=== PATIENT | female | born 1940 | race Caucasian/White ===

== ENCOUNTER 2020-01-04 10:18 | Outpatient (REF) | payer MEDICARE, SELFPAY ==
[2020-01-04 11:15] LABS: Estimated Average Glucose 117 mg/dL; Hemoglobin A1C 119.9909 umol/L; Hemoglobin A1c % 5.7 %
[2020-01-04 11:24] LABS: Basophils Percent Auto 0.2 % (0-2); Eosinophils Percent Auto 0.5 % (0-4); Hematocrit 38.9 % (37-47); Imm Gran Abs Auto 0.08 X10*3/uL (0.00-0.03); Lymphocytes Absolute Auto 2.2 X10*3/uL (1.2-4.9); Lymphocytes Percent Auto 26.5 % (20-40); Mean Corpuscular HGB Conc 30.8 g/dl (31.0-35.0); Mean Platelet Volume 9.8 fL (9.4-12.3); Monocytes Absolute Auto 0.7 X10*3/uL (0.1-1.2); Neutrophils Absolute Auto 5.2 X10*3/uL (2.0-8.3); Neutrophils Percent Auto 62.8 % (45-73); Platelet Count 503 X10*3/uL (160-400); Red Cell Distribution Width 14.5 % (11.0-16.0); White Blood Count 8.3 X10*3/uL (4.8-10.8)
[2020-01-04 11:25] LABS: MANUAL DIFF FLAG NO
[2020-01-04 12:06] LABS: Anion Gap 14 (12-20); Blood Urea Nitrogen 14 mg/dL (9-16); Calcium 9.1 mg/dL (8.4-10.2); Carbon Dioxide 26 mmol/L (22-29); Chloride 103 mmol/L (96-108); Estimated Glomerular Filt Rate 49; Glucose Random 113 mg/dL (60-115); Potassium 5.4 mmol/l (3.3-5.1); Sodium 138 mmol/L (135-145)
[2020-01-04 14:31] LABS: Glucose Urine UA NEG (NEG); Leukocyte Esterase Urine 1+ (NEG); Nitrite Urine NEG (NEG); PH 5.5 (5.0-8.0); Specific Gravity - Urine 1.025 (1.005-1.025); Urine Blood NEG (NEG); Urine Ketones 5 MG/DL (NEG); Urine Protein TRACE MG/DL (NEG-TRACE)
[2020-01-04 14:34] LABS: Appearance Urine CLOUDY; Color Urine YELLOW
[2020-01-04 14:53] LABS: Amorphous Sediment Urine 1+ /LPF; Bacteria Urine 4+ /LPF; RBC Urine 0 /HPF (0); Squamous Epithelial Cell Urine 2+ /LPF
[2020-01-05 09:16] LABS: LDL Cholesterol Direct 74 mg/dL (<100)
== END 2020-01-04 10:19 | disposition home or self-care (01) ==
LOC: HO.HMGCLDS 10:18
PROVIDERS: PCP Internal Medicine; Visit Provider Internal Medicine
DX: K21.9 Gastro-esophageal reflux disease without esophagitis (principal); E78.9 Disorder of lipoprotein metabolism, unspecified; J44.9 Chronic obstructive pulmonary disease, unspecified; I10 Essential (primary) hypertension; R35.8 Other polyuria
CPT/HCPCS: 36415; 80048; 81001; 83036; 83721; 85025; 87086

== ENCOUNTER 2020-05-12 11:42 | Outpatient (REF) | payer MEDICARE, SELFPAY ==
[2020-05-12 14:05] LABS: MANUAL DIFF FLAG NO
[2020-05-12 14:16] LABS: Glucose Urine UA NEG (NEG); Leukocyte Esterase Urine NEG (NEG); Nitrite Urine NEG (NEG); PH 5.5 (5.0-8.0); Specific Gravity - Urine 1.025 (1.005-1.025); Urine Blood NEG (NEG); Urine Ketones NEG (NEG); Urine Protein NEG (NEG-TRACE)
[2020-05-12 14:17] LABS: Appearance Urine TURBID; Color Urine YELLOW
[2020-05-12 14:18] LABS: Basophils Absolute Auto 0.1 X10*3/uL (0.0-0.2); Basophils Percent Auto 0.6 % (0-2); Eosinophils Absolute Auto 0.2 X10*3/uL (0.0-0.4); Hematocrit 39.1 % (37-47); Hemoglobin 11.9 g/dl (12.0-16.0); Imm Gran Abs Auto 0.04 X10*3/uL (0.00-0.03); Imm Gran Pct Auto 0.4 % (0.0-0.4); Lymphocytes Absolute Auto 3.1 X10*3/uL (1.2-4.9); Lymphocytes Percent Auto 33.3 % (20-40); Mean Corpuscular HGB Conc 30.4 g/dl (31.0-35.0); Mean Corpuscular Hemoglobin 24.5 pg (27.0-33.0); Mean Corpuscular Volume 80.6 fL (80-98); Mean Platelet Volume 10.5 fL (9.4-12.3); Monocytes Absolute Auto 0.9 X10*3/uL (0.1-1.2); Monocytes Percent Auto 9.3 % (2-11); Neutrophils Absolute Auto 5.1 X10*3/uL (2.0-8.3); Neutrophils Percent Auto 54.4 % (45-73); Platelet Count 480 X10*3/uL (160-400); Red Blood Count 4.85 X10*6/uL (4.20-5.50); Red Cell Distribution Width 16.1 % (11.0-16.0); White Blood Count 9.4 X10*3/uL (4.8-10.8)
[2020-05-12 14:41] LABS: Alanine Aminotransferase 15 U/L (0-31); Albumin Level 4.4 g/dL (3.5-5.0); Alkaline Phosphatase 249 U/L (39-117); Anion Gap 19 (12-20); Aspartate Amino Transferase 21 U/L (5-31); Bilirubin Total 0.3 mg/dL (0.0-1.0); Blood Urea Nitrogen 15 mg/dL (9-16); Calcium 9.3 mg/dL (8.4-10.2); Carbon Dioxide 22 mmol/L (22-29); Chloride 103 mmol/L (96-108); Estimated Glomerular Filt Rate 47; Glucose Random 123 mg/dL (60-115); Potassium 4.5 mmol/L (3.3-5.1); Sodium 139 mmol/L (135-145); Total Protein 7.9 g/dL (6.5-8.0)
== END 2020-05-12 11:43 | disposition home or self-care (01) ==
LOC: HO.HMGCLDS 11:42
PROVIDERS: PCP Internal Medicine; Visit Provider Internal Medicine
DX: K21.9 Gastro-esophageal reflux disease without esophagitis (principal); E78.9 Disorder of lipoprotein metabolism, unspecified; J44.9 Chronic obstructive pulmonary disease, unspecified; I10 Essential (primary) hypertension; R35.8 Other polyuria
CPT/HCPCS: 36415; 80053; 81003; 85025

== ENCOUNTER → 2020-06-06 09:47 | Outpatient (BNVA) | payer MEDICARE, SELFPAY | PROVIDERS: PCP Internal Medicine; Visit Provider Internal Medicine | DX: J44.9 Chronic obstructive pulmonary disease, unspecified (principal); Z87.891 Personal history of nicotine dependence | CPT/HCPCS: 99202 ==

== ENCOUNTER → 2020-08-30 09:03 | Outpatient (BNVA) | payer MEDICARE, SELFPAY | PROVIDERS: PCP Internal Medicine; Visit Provider Internal Medicine | DX: J44.9 Chronic obstructive pulmonary disease, unspecified (principal); Z87.891 Personal history of nicotine dependence | CPT/HCPCS: 99212 ==

== ENCOUNTER → 2020-10-31 09:12 | Outpatient (BNVA) | payer MEDICARE, SELFPAY | PROVIDERS: PCP Internal Medicine | DX: N32.81 Overactive bladder (principal) | CPT/HCPCS: 51798; 99202 ==

== ENCOUNTER 2020-11-16 07:39 | Outpatient (REF) | payer MEDICARE, SELFPAY ==
[2020-11-16 11:26] LABS: MANUAL DIFF FLAG NO
[2020-11-16 11:36] LABS: Basophils Absolute Auto 0.1 X10*3/uL (0.0-0.2); Basophils Percent Auto 0.6 % (0-2); Eosinophils Absolute Auto 0.2 X10*3/uL (0.0-0.4); Eosinophils Percent Auto 1.5 % (0-4); Hematocrit 36.2 % (37-47); Hemoglobin 11.1 g/dl (12.0-16.0); Imm Gran Abs Auto 0.05 X10*3/uL (0.00-0.03); Imm Gran Pct Auto 0.5 % (0.0-0.4); Lymphocytes Absolute Auto 3.2 X10*3/uL (1.2-4.9); Lymphocytes Percent Auto 31.9 % (20-40); Mean Corpuscular HGB Conc 30.7 g/dl (31.0-35.0); Mean Corpuscular Hemoglobin 24.3 pg (27.0-33.0); Mean Corpuscular Volume 79.4 fL (80-98); Mean Platelet Volume 10.2 fL (9.4-12.3); Monocytes Absolute Auto 0.8 X10*3/uL (0.1-1.2); Monocytes Percent Auto 7.4 % (2-11); Neutrophils Absolute Auto 5.9 X10*3/uL (2.0-8.3); Neutrophils Percent Auto 58.1 % (45-73); Platelet Count 484 X10*3/uL (160-400); Red Blood Count 4.56 X10*6/uL (4.20-5.50); Red Cell Distribution Width 17.2 % (11.0-16.0); White Blood Count 10.1 X10*3/uL (4.8-10.8)
[2020-11-16 11:51] LABS: Alanine Aminotransferase 11 U/L (0-31); Albumin Level 3.9 g/dL (3.5-5.0); Alkaline Phosphatase 219 U/L (39-117); Anion Gap 15 (12-20); Aspartate Amino Transferase 19 U/L (5-31); Bilirubin Total 0.2 mg/dL (0.0-1.0); Blood Urea Nitrogen 11 mg/dL (9-16); Carbon Dioxide 22 mmol/L (22-29); Chloride 104 mmol/L (96-108); Estimated Glomerular Filt Rate 51; Glucose Random 122 mg/dL (60-115); Potassium 4.2 mmol/L (3.3-5.1); Sodium 137 mmol/L (135-145); Total Protein 6.9 g/dL (6.5-8.0)
[2020-11-18 02:16] LABS: LDL Cholesterol Direct 89 mg/dL (<100)
== END 2020-11-16 07:40 | disposition home or self-care (01) ==
LOC: HO.HMGCLDS 07:39
PROVIDERS: PCP Internal Medicine; Visit Provider Internal Medicine
DX: E78.9 Disorder of lipoprotein metabolism, unspecified (principal); I10 Essential (primary) hypertension
CPT/HCPCS: 36415; 80053; 83721; 85025

== ENCOUNTER 2020-12-11 14:33 | Emergency (ER) | payer MEDICARE, SELFPAY ==
--- NOTE | ~2020-12-11 | CT_ITS ---
EXAMINATION: CT ANGIOGRAM OF THE CHEST WITH AND WITHOUT CONTRAST (CT PULMONARY ANGIOGRAM FOR PE) CLINICAL INFORMATION: Elevated d-dimer and syncope. COMPARISON: No similar priors. TECHNIQUE: Prior to contrast administration, noncontrast localization images were obtained. Subsequently, multidetector volumetric imaging was performed from the thoracic inlet to below the diaphragms following the administration of 68 mL Omnipaque 350 intravenous contrast. No contrast reaction reported Sagittal, coronal, and MIP oblique sagittal reformatted images were obtained on the CT workstation, uploaded to PACS, and reviewed. This CT examination was performed using dose optimization techniques as appropriate, variously including the following: *Automated exposure control *Adjustment of mA and/or kV according to patient size (this includes techniques or standardized protocols for targeted exams where dose is matched to indication/reason for exam; i.e. extremities or head) *Use of iterative reconstruction technique Total exam dose-length product 255 mGy-cm FINDINGS: QUALITY OF STUDY/CONTRAST BOLUS: Satisfactory. PULMONARY ARTERIES: No central or segmental pulmonary emboli. THORACIC AORTA: Atherosclerotic disease. No aneurysm or dissection. LUNG: There is a background of centrilobular emphysema. There is right greater than left apical pleural thickening/scarring. There are platelike opacities in the right middle lobe, lingula and dependently in the lung bases, likely a combination of subsegmental atelectases and parenchymal scarring. There is mild bronchial wall thickening with some areas of segmental and subsegmental mucus impaction, for instance as visualized in the left upper lobe on image 190 of series 7. The main airways are patent. There are several nodularities bilaterally, some of which are described below (series 7): A 1.2 cm groundglass nodularity in the right lung base on image 340. A 6 mm solid appearing nodule in the right middle lobe on image 201. A 3 mm solid appearing nodule more superiorly in the right middle lobe on image 186. A 2 mm nodule in the right upper lobe on image 123. A few other more peripherally located nodularities appear to have a tree-in-bud morphology, for instance is identified in the anterior aspect of the right upper lobe on image 133 of series 7. PLEURA: No pleural effusion or pneumothorax. MEDIASTINUM: Normal heart size. Trace amount of pericardial fluid. No evidence of septal bowing or right heart strain. No mediastinal or hilar lymphadenopathy. The esophagus is filled with air-fluid levels and is slightly patulous. There is a normal appearance of the thyroid gland. CHEST WALL/AXILLA: No axillary or internal mammary lymphadenopathy. OSSEOUS STRUCTURES: No acute or suspicious osseous abnormality. Thoracic spondylosis. UPPER ABDOMEN: Unremarkable. No reflux of contrast into the hepatic veins to suggest elevated right heart pressures. CT/CT angio chest PE protocol IMPRESSION: No evidence of pulmonary emboli nor increased right-sided heart pressures. Centrilobular emphysema with multiple pulmonary nodules as above. This could be infectious, inflammatory or malignant and a short-term follow-up chest CT should be obtained. Of note, some of these nodules appear to be centrilobular and with tree-in-bud distribution which favors an infectious/inflammatory process. There is mild bronchial wall thickening and segmental/subsegmental mucus impaction which could be seen in the setting of infectious/inflammatory bronchitis. The esophagus is dilated with air-fluid levels possibly related with dysmotility or reflux. Correlate clinically and if indicated consider evaluation with endoscopy. VTE: negative
--- NOTE | ~2020-12-11 | XR_ITS ---
EXAMINATION: XR CHEST CLINICAL INFORMATION: Syncope COMPARISON: None TECHNIQUE: Frontal view of the chest was obtained. FINDINGS: Lungs are clear and there is no lobar or segmental airspace consolidation or groundglass opacity. The costophrenic sulci are clear. There is borderline smooth thickening of the medial right minor fissure of doubtful significance. The heart is normal in size. The hilar and mediastinal contours and visualized bony structures are unremarkable. XR/XR chest 1V IMPRESSION: Unremarkable examination.
--- NOTE | 2020-12-11 14:48 | ECG_ITS ---
Test Reason : DYSPNEA/DIZZYNESS Blood Pressure : / mmHG Vent. Rate : 075 BPM Atrial Rate : 075 BPM P-R Int : 144 ms QRS Dur : 116 ms QT Int : 402 ms P-R-T Axes : 050 049 054 degrees QTc Int : 448 ms Normal sinus rhythm Incomplete right bundle branch block Nonspecific ST and T wave abnormality Abnormal ECG No significant changes seen \ Referred By: Tenisha Alvarez Electronically Signed By:IVA SHARP MD
--- NOTE | 2020-12-11 14:50 | ED.SYNCOPE ---
HPI - Syncope General Chief Complaint: Syncope Stated Complaint: syncope Time Seen by Provider: 12/11/20 14:48 Source: patient and EMS Mode of arrival: EMS Limitations: no limitations History of Present Illness MD complaint: loss of consciousness Onset (ago): minute(s) -: minutes(s) Prodromal symptoms: lightheaded Witnessed: Yes - by Bystander Context: standing up (to leave the pub) Injuries sustained associated with event: none (was lowered to the ground) Current symptoms: none and back to baseline Treatments prior to arrival: IV fluids Related Data Previous Rx's Medication Instructions Recorded albuterol sulfate 90 mcg/actuation 1 inh INHALATION QID PRN 30 Days 05/12/20 aerosol inhaler (ProAir HFA) #18 g amlodipine 10 mg tablet 10 mg PO DAILY #90 tab 09/15/20 fluticasone fur. 200 mcg-umeclid 1 inh INHALATION Q24H 30 Days #60 09/15/20 62.5 mcg-vilant 25 mcg ea inhalat.powder (Trelegy Ellipta) losartan 50 mg tablet 50 mg PO DAILY #90 tab 09/15/20 omeprazole 40 mg capsule,delayed 40 mg PO DAILY #90 cap 09/15/20 release simvastatin 40 mg tablet 40 mg PO DAILY 90 Days #90 tab 09/15/20 mirabegron 25 mg tablet,extended 25 mg PO DAILY 30 Days #30 tab 10/31/20 release 24 hr (Myrbetriq) terazosin 1 mg capsule 1 mg PO BEDTIME #30 cap 11/23/20 azithromycin 500 mg tablet See Rx Instructions .ROUTE 12/11/20 .COMPLEX #6 tab Allergies Allergy/AdvReac Type Severity Reaction Status Date / Time No Known Allergies Allergy Verified 10/31/20 09:31 Review of Systems Review of Systems: Constitutional : No Weight loss, No Fever, No Chills, No Fatigue, No Malaise ENT/Mouth : No sore throat, No Rhinorrhea Eyes: No Eye Pain, No Swelling, No Redness Cardiovascular : No Chest Pain, No SOB, No Dyspnea on Exertion, No Orthopnea, No Edema, No Palpitations Respiratory : No Cough, No Sputum, No Wheezing Gastrointestinal : No Nausea, No Vomiting, No Diarrhea, No Constipation, No abdominal Pain, No Hematochezia, No Melena Genitourinary : No Dysuria, No Urinary Frequency, No Hematuria, Musculoskeletal : No joint pain, No Myalgias, No Joint Swelling Skin : No Skin Lesions, No rash Neuro : No Weakness, No Numbness, No Dizziness, No Headache, pos syncope Psych : No Anxiety/Panic, No Depression Heme/Lymph: No Bruising, No Bleeding,No Lymphadenopathy Endocrine : No Polyuria, No Polydipsia All other systems reviewed and are negative PMFSH Past Medical History Attestation statement: The following information was validated with the patient. Medical History Chronic GERD COPD, severe Ex-smoker Hypertension Lipid disorder Polyuria Surgical History No pertinent past surgical history Family History Family History Father HTN (hypertension) Mother No problems noted. Brother No problems noted. Son No problems noted. Son No problems noted. Daughter No problems noted. Daughter No problems noted. Social History Social History (Updated 12/11/20 @ 14:53 by Tenisha Alvarez DO) Alcohol intake: current Alcohol intake frequency: a few times a week Patient Tobacco Use Status: Former Tobacco user Smoked in Last 30 Days: No Use of substances other than those prescribed or required for medical reasons: No Advance Directives: No Advance Directives Information Provided: No Physical Exam Vital Signs: Vital Signs: Last Vital Signs Temp 98.3 F 12/11/20 14:52 Pulse 96 12/11/20 19:11 Resp 16 12/11/20 20:13 BP 115/52 L 12/11/20 19:11 Pulse Ox 93 12/11/20 19:09 Body Mass Index 30.7 Appearance: Alert. Oriented X3. No acute distress. Eyes: Pupils equal, round and reactive to light. ENT: Pharynx normal. Neck: Normal inspection. Neck supple. CVS: Normal heart rate and rhythm. Pulses normal. Respiratory: No respiratory distress. Breath sounds normal. Abdomen: Soft and nontender. Skin: Skin warm and dry. Normal skin color. Normal skin turgor. Extremities: No lower extremity edema. No calf ttp Neuro: Oriented X 3. No motor deficit. No sensory deficit. Course Course Course Narrative: neg PE study, + ortho VS and ETOH likely cause of syncope repeat trop pending feels better after fluids stable for DC MDM - Syncope MDM Narrative Medical decision making narrative: 80 yo female with COPD, HLD, HTN here with c/o syncopal event with dizziness prodrome when she went to leave the pub. Denies SOB/CP/GIB symptoms. Had no trauma was lowered to the ground. At this time will obtain EKG, troponin x 2, ddimer, ortho VS - has no symptoms and feels fine. No prior episodes of syncope in the past. Lab Data Result diagrams: 12/11/20 15:51 12/11/20 15:51 Labs: Lab Results 12/11/20 12/11/20 12/11/20 Range/Units 15:51 15:51 15:51 WBC 10.4 (4.8-10.8) X10*3/uL RBC 4.47 (4.20-5.50) X10*6/uL Hgb 11.0 L (12.0-16.0) g/dl Hct 35.8 L (37-47) % MCV 80.1 (80-98) fL MCH 24.6 L (27.0-33.0) pg MCHC 30.7 L (31.0-35.0) g/dl RDW 16.4 H (11.0-16.0) % Plt Count 418 H (160-400) X10*3/uL MPV 9.5 (9.4-12.3) fL Immature Gran % (Auto) 1.3 H (0.0-0.4) % Neut % (Auto) 64.6 (45-73) % Lymph % (Auto) 24.9 (20-40) % Hopkins % (Auto) 7.3 (2-11) % Eos % (Auto) 1.2 (0-4) % Baso % (Auto) 0.7 (0-2) % Lymph # (Auto) 2.6 (1.2-4.9) X10*3/uL Hopkins # (Auto) 0.8 (0.1-1.2) X10*3/uL Eos # (Auto) 0.1 (0.0-0.4) X10*3/uL Baso # (Auto) 0.1 (0.0-0.2) X10*3/uL Abs Immat Gran (auto) 0.14 H (0.00-0.03) X10*3/uL Absolute Neuts (auto) 6.7 (2.0-8.3) X10*3/uL Absolute Nucleated RBC 0.000 (0.0-0.012) X10*3/uL Nucleated RBC % (auto) 0.0 (0.0-0.2) /100WBC D-Dimer NG/ML Sodium 132 L (135-145) mmol/L Potassium 3.8 (3.3-5.1) mmol/L Chloride 102 (96-108) mmol/L Carbon Dioxide 20 L (22-29) mmol/L Anion Gap 14 (12-20) BUN 11 (9-16) mg/dL Creatinine 1.33 (0.5-1.4) mg/dL Estim Creat Clear Calc 36.6 Estimated GFR 38 Random Glucose 98 (60-115) mg/dL Calcium 8.8 (8.4-10.2) mg/dL Magnesium 1.9 (1.6-2.6) mg/dL Total Bilirubin 0.3 (0.0-1.0) mg/dL Direct Bilirubin < 0.2 (0.0-0.5) mg/dL AST 20 (5-31) U/L ALT 13 (0-31) U/L Alkaline Phosphatase 168 H D (39-117) U/L Troponin I High Sens (<3.5-17.0) ng/L B-Natriuretic Peptide 15 (<100) pg/mL Total Protein 6.6 (6.5-8.0) g/dL Albumin 3.8 (3.5-5.0) g/dL Lipase 21 (8-78) U/L Ethyl Alcohol mg/dL COVID-19 (DIPESH) (Negative) COVID-19 Clin Com 12/11/20 12/11/20 12/11/20 Range/Units 15:51 15:51 15:51 WBC (4.8-10.8) X10*3/uL RBC (4.20-5.50) X10*6/uL Hgb (12.0-16.0) g/dl Hct (37-47) % MCV (80-98) fL MCH (27.0-33.0) pg MCHC (31.0-35.0) g/dl RDW (11.0-16.0) % Plt Count (160-400) X10*3/uL MPV (9.4-12.3) fL Immature Gran % (Auto) (0.0-0.4) % Neut % (Auto) (45-73) % Lymph % (Auto) (20-40) % Hopkins % (Auto) (2-11) % Eos % (Auto) (0-4) % Baso % (Auto) (0-2) % Lymph # (Auto) (1.2-4.9) X10*3/uL Hopkins # (Auto) (0.1-1.2) X10*3/uL Eos # (Auto) (0.0-0.4) X10*3/uL Baso # (Auto) (0.0-0.2) X10*3/uL Abs Immat Gran (auto) (0.00-0.03) X10*3/uL Absolute Neuts (auto) (2.0-8.3) X10*3/uL Absolute Nucleated RBC (0.0-0.012) X10*3/uL Nucleated RBC % (auto) (0.0-0.2) /100WBC D-Dimer 585 NG/ML Sodium (135-145) mmol/L Potassium (3.3-5.1) mmol/L Chloride (96-108) mmol/L Carbon Dioxide (22-29) mmol/L Anion Gap (12-20) BUN (9-16) mg/dL Creatinine (0.5-1.4) mg/dL Estim Creat Clear Calc Estimated GFR Random Glucose (60-115) mg/dL Calcium (8.4-10.2) mg/dL Magnesium (1.6-2.6) mg/dL Total Bilirubin (0.0-1.0) mg/dL Direct Bilirubin (0.0-0.5) mg/dL AST (5-31) U/L ALT (0-31) U/L Alkaline Phosphatase (39-117) U/L Troponin I High Sens < 3.5 (<3.5-17.0) ng/L B-Natriuretic Peptide (<100) pg/mL Total Protein (6.5-8.0) g/dL Albumin (3.5-5.0) g/dL Lipase (8-78) U/L Ethyl Alcohol 95 mg/dL COVID-19 (DIPESH) (Negative) COVID-19 Clin Com 12/11/20 12/11/20 Range/Units 18:28 18:28 WBC (4.8-10.8) X10*3/uL RBC (4.20-5.50) X10*6/uL Hgb (12.0-16.0) g/dl Hct (37-47) % MCV (80-98) fL MCH (27.0-33.0) pg MCHC (31.0-35.0) g/dl RDW (11.0-16.0) % Plt Count (160-400) X10*3/uL MPV (9.4-12.3) fL Immature Gran % (Auto) (0.0-0.4) % Neut % (Auto) (45-73) % Lymph % (Auto) (20-40) % Hopkins % (Auto) (2-11) % Eos % (Auto) (0-4) % Baso % (Auto) (0-2) % Lymph # (Auto) (1.2-4.9) X10*3/uL Hopkins # (Auto) (0.1-1.2) X10*3/uL Eos # (Auto) (0.0-0.4) X10*3/uL Baso # (Auto) (0.0-0.2) X10*3/uL Abs Immat Gran (auto) (0.00-0.03) X10*3/uL Absolute Neuts (auto) (2.0-8.3) X10*3/uL Absolute Nucleated RBC (0.0-0.012) X10*3/uL Nucleated RBC % (auto) (0.0-0.2) /100WBC D-Dimer NG/ML Sodium (135-145) mmol/L Potassium (3.3-5.1) mmol/L Chloride (96-108) mmol/L Carbon Dioxide (22-29) mmol/L Anion Gap (12-20) BUN (9-16) mg/dL Creatinine (0.5-1.4) mg/dL Estim Creat Clear Calc Estimated GFR Random Glucose (60-115) mg/dL Calcium (8.4-10.2) mg/dL Magnesium (1.6-2.6) mg/dL Total Bilirubin (0.0-1.0) mg/dL Direct Bilirubin (0.0-0.5) mg/dL AST (5-31) U/L ALT (0-31) U/L Alkaline Phosphatase (39-117) U/L Troponin I High Sens < 3.5 (<3.5-17.0) ng/L B-Natriuretic Peptide (<100) pg/mL Total Protein (6.5-8.0) g/dL Albumin (3.5-5.0) g/dL Lipase (8-78) U/L Ethyl Alcohol mg/dL COVID-19 (DIPESH) Negative (Negative) COVID-19 Clin Com See Note ECG Data Attestation: I personally reviewed and interpreted this ECG as follows: ECG interpretation date: 12/11/20 ECG interpretation time: 15:13 Interpretation: Rate: 75 Rhythm: NSR [place]: normal Normal P waves. Normal LILLIAN. RBBB ST T wave : normal no BYRON qTC: normal prior studies: no sig change from 2015 The study has been interpreted contemporaneously by me. . Discharge Plan Discharge Clinical Impression: Syncope due to orthostatic hypotension, Bronchitis Patient Disposition: Home, Self-Care Instructions: Syncope (ED), Acute Bronchitis (ED) Additional Instructions: return to ED for any worsening symptoms or concerns no blood pressure medications for 2 days patient instructed prior to DC Prescriptions: New azithromycin 500 mg tablet See Rx Instructions .ROUTE .COMPLEX Qty: 6 RF: 0 No Action Trelegy Ellipta 200-62.5-25 mcg blister with device 1 inh inhalation Q24H 30 Days Qty: 60 RF: 6 terazosin 1 mg capsule 1 mg PO BEDTIME Qty: 30 RF: 5 albuterol sulfate [ProAir HFA] 90 mcg/actuation HFA aerosol inhaler 1 inh inhalation QID PRN (Reason: shortness of breath or wheezing) 30 Days Qty: 18 RF: 3 simvastatin 40 mg tablet 40 mg PO DAILY 90 Days Qty: 90 RF: 0 omeprazole 40 mg capsule,delayed release(DR/EC) 40 mg PO DAILY Qty: 90 RF: 2 losartan 50 mg tablet 50 mg PO DAILY Qty: 90 RF: 1 amlodipine 10 mg tablet 10 mg PO DAILY Qty: 90 RF: 1 Myrbetriq 25 mg tablet extended release 24 hr 25 mg PO DAILY 30 Days Qty: 30 RF: 1 Referrals: Flavio Bundy MD [Primary Care Provider] - 2 days (if not better)
[2020-12-11 14:52] VITALS: BP 102/60; BP 106/52; PULSE 78; PULSE 80; RESP 20; TEMP 36.8; O2SAT 97; O2SAT 98; BMI 30.7
[2020-12-11 15:58] LABS: MANUAL DIFF FLAG NO
[2020-12-11 16:02] LABS: Basophils Absolute Auto 0.1 X10*3/uL (0.0-0.2); Basophils Percent Auto 0.7 % (0-2); Eosinophils Absolute Auto 0.1 X10*3/uL (0.0-0.4); Eosinophils Percent Auto 1.2 % (0-4); Hematocrit 35.8 % (37-47); Imm Gran Abs Auto 0.14 X10*3/uL (0.00-0.03); Imm Gran Pct Auto 1.3 % (0.0-0.4); Lymphocytes Absolute Auto 2.6 X10*3/uL (1.2-4.9); Lymphocytes Percent Auto 24.9 % (20-40); Mean Corpuscular HGB Conc 30.7 g/dl (31.0-35.0); Mean Corpuscular Hemoglobin 24.6 pg (27.0-33.0); Mean Corpuscular Volume 80.1 fL (80-98); Mean Platelet Volume 9.5 fL (9.4-12.3); Monocytes Absolute Auto 0.8 X10*3/uL (0.1-1.2); Monocytes Percent Auto 7.3 % (2-11); Neutrophils Absolute Auto 6.7 X10*3/uL (2.0-8.3); Neutrophils Percent Auto 64.6 % (45-73); Platelet Count 418 X10*3/uL (160-400); Red Blood Count 4.47 X10*6/uL (4.20-5.50); Red Cell Distribution Width 16.4 % (11.0-16.0); White Blood Count 10.4 X10*3/uL (4.8-10.8)
[2020-12-11 16:11] LABS: D Dimer 585 NG/ML
[2020-12-11 16:18] LABS: Ethanol 95 mg/dL
[2020-12-11 16:21] LABS: Alanine Aminotransferase 13 U/L (0-31); Albumin Level 3.8 g/dL (3.5-5.0); Alkaline Phosphatase 168 U/L (39-117); Anion Gap 14 (12-20); Aspartate Amino Transferase 20 U/L (5-31); Bilirubin Direct < 0.2 mg/dL (0.0-0.5); Bilirubin Total 0.3 mg/dL (0.0-1.0); Blood Urea Nitrogen 11 mg/dL (9-16); Calcium 8.8 mg/dL (8.4-10.2); Carbon Dioxide 20 mmol/L (22-29); Chloride 102 mmol/L (96-108); Creatinine Clr Calc Pharmacy 36.6; Estimated Glomerular Filt Rate 38; Glucose Random 98 mg/dL (60-115); Lipase 21 U/L (8-78); Magnesium 1.9 mg/dL (1.6-2.6); Potassium 3.8 mmol/L (3.3-5.1); Sodium 132 mmol/L (135-145); Total Protein 6.6 g/dL (6.5-8.0)
[2020-12-11 16:22] LABS: Troponin-I High Sensitivity < 3.5 ng/L (<3.5-17.0)
[2020-12-11 16:25] LABS: B Type Natriuretic Peptide 15 pg/mL (<100)
[2020-12-11] MEDS: iohexoL 350 MG/ML 100 ML INFUS..BTL IV (17:08)
[2020-12-11] MEDS: 0.9 % Sodium Chloride 1,000 ML 999 ML IV ×2 (17:54→19:08)
[2020-12-11 18:03] VITALS: BP 107/53; BP 110/66; BP 97/50; PULSE 114; PULSE 119; PULSE 93
[2020-12-11 18:50] LABS: COVID-19 Test Negative (Negative)
[2020-12-11 18:53] LABS: Troponin-I High Sensitivity < 3.5 ng/L (<3.5-17.0)
[2020-12-11 19:09] VITALS: O2SAT 93
[2020-12-11 19:11] VITALS: BP 115/52; PULSE 96; RESP 16
--- NOTE | 2020-12-11 19:12 | PC.NURSE ---
vital signs taken, medicated per mar. no chest pain or increase of sob. Disposition is to discharge patient after fluids completed.
[2020-12-11 20:13] VITALS: RESP 16
== END 2020-12-11 20:25 | disposition home or self-care (01) ==
PROVIDERS: Emergency Provider Emergency Medicine; PCP Internal Medicine
DX: I95.1 Orthostatic hypotension (principal); J40 Bronchitis, not specified as acute or chronic; I10 Essential (primary) hypertension; J44.9 Chronic obstructive pulmonary disease, unspecified; Z20.822 Contact with and (suspected) exposure to COVID-19
CPT/HCPCS: 36415; 71045; 71275; 80048; 80076; 82077; 83690; 83735; 83880; 84484; 85025; 85379; 87635; 93005; 96360; 96361; 99285; Q9967

== ENCOUNTER 2020-12-15 13:14 | Outpatient (REF) | payer MEDICARE, SELFPAY ==
--- NOTE | ~2020-12-15 | XR_ITS ---
EXAMINATION: XR RIBS, RIGHT CLINICAL INFORMATION: Pleurodynia COMPARISON: Previous chest x-ray 12/11/2020 TECHNIQUE: 3 views of the right ribs were obtained. FINDINGS: The cardiac and mediastinal contours are stable. There is linear scarring or subsegmental atelectasis in the right midlung. The lungs are otherwise clear. There is no pleural effusion or pneumothorax. No rib fracture is seen. There are mild degenerative changes of the spine. XR/XR ribs RT min 3V w CXR1V IMPRESSION: Right midlung linear scarring or subsegmental atelectasis. No rib fracture seen.
== END 2020-12-15 13:15 | disposition home or self-care (01) ==
LOC: HO.HMGCX 13:14
PROVIDERS: PCP Internal Medicine; Visit Provider Internal Medicine
DX: R07.81 Pleurodynia (principal)
CPT/HCPCS: 71101

== ENCOUNTER → 2021-01-03 09:00 | Outpatient (BNVA) | payer MEDICARE, SELFPAY | PROVIDERS: PCP Internal Medicine; Visit Provider Internal Medicine | DX: J44.9 Chronic obstructive pulmonary disease, unspecified (principal); Z87.891 Personal history of nicotine dependence | CPT/HCPCS: 99212 ==

== ENCOUNTER → 2021-03-07 09:03 | Outpatient (BNVA) | payer MEDICARE, SELFPAY | PROVIDERS: PCP Internal Medicine; Visit Provider Internal Medicine | DX: J44.9 Chronic obstructive pulmonary disease, unspecified (principal); Z79.899 Other long term (current) drug therapy; Z87.891 Personal history of nicotine dependence | CPT/HCPCS: 99212 ==

== ENCOUNTER 2021-04-11 07:33 | Outpatient (REF) | payer MEDICARE, SELFPAY ==
[2021-04-11 11:13] LABS: MANUAL DIFF FLAG NO
[2021-04-11 11:17] LABS: Basophils Absolute Auto 0.1 X10*3/uL (0.0-0.2); Basophils Percent Auto 0.7 % (0-2); Eosinophils Absolute Auto 0.4 X10*3/uL (0.0-0.4); Eosinophils Percent Auto 2.8 % (0-4); Hematocrit 37.2 % (37.0-47.0); Hemoglobin 11.1 g/dl (12.0-16.0); Imm Gran Abs Auto 0.05 X10*3/uL (0.00-0.03); Imm Gran Pct Auto 0.4 % (0.0-0.4); Lymphocytes Absolute Auto 4.7 X10*3/uL (1.2-4.9); Lymphocytes Percent Auto 36.9 % (20-40); Mean Corpuscular HGB Conc 29.8 g/dl (31.0-35.0); Mean Corpuscular Hemoglobin 23.3 pg (27.0-33.0); Mean Platelet Volume 10.8 fL (9.4-12.3); Monocytes Percent Auto 8.2 % (2-11); Neutrophils Absolute Auto 6.5 x10*3/uL (2.0-8.3); Platelet Count 510 X10*3/uL (160-400); Red Blood Count 4.77 X10*6/uL (4.20-5.50); Red Cell Distribution Width 15.5 % (11.0-16.0); White Blood Count 12.7 X10*3/uL (4.8-10.8)
[2021-04-11 11:53] LABS: Alanine Aminotransferase 9 U/L (0-31); Albumin Level 4.3 g/dL (3.5-5.0); Alkaline Phosphatase 148 U/L (39-117); Anion Gap 14 (12-20); Aspartate Amino Transferase 17 U/L (5-31); Bilirubin Total 0.4 mg/dL (0.0-1.0); Blood Urea Nitrogen 14 mg/dL (9-16); Calcium 10.1 mg/dL (8.4-10.2); Carbon Dioxide 26 mmol/L (22-29); Chloride 102 mmol/L (96-108); Estimated Glomerular Filt Rate 51; Glucose Random 105 mg/dL (60-115); Potassium 4.1 mmol/L (3.3-5.1); Sodium 138 mmol/L (135-145); Total Protein 7.3 g/dL (6.5-8.0)
[2021-04-11 11:56] LABS: Vitamin B12 232 pg/mL (200-900)
[2021-04-11 12:15] LABS: TSH reflex Free T4 1.04 uIU/mL (0.32-4.0)
[2021-04-12 09:01] LABS: LDL Cholesterol Direct 100 mg/dL (<100)
== END 2021-04-11 07:34 | disposition home or self-care (01) ==
LOC: HO.HMGCLDS 07:33
PROVIDERS: Visit Provider Internal Medicine
DX: I10 Essential (primary) hypertension (principal); J44.9 Chronic obstructive pulmonary disease, unspecified; K21.9 Gastro-esophageal reflux disease without esophagitis; N32.81 Overactive bladder; E78.9 Disorder of lipoprotein metabolism, unspecified
CPT/HCPCS: 36415; 80053; 82607; 83721; 84443; 85025

== ENCOUNTER → 2021-04-30 09:02 | Outpatient (BNVA) | payer MEDICARE, SELFPAY | PROVIDERS: PCP Internal Medicine | DX: N32.81 Overactive bladder (principal); R35.89 Other polyuria | CPT/HCPCS: Q3014 ==

== ENCOUNTER → 2021-07-05 09:10 | Outpatient (BNVA) | payer MEDICARE, SELFPAY | PROVIDERS: PCP Internal Medicine; Visit Provider Internal Medicine | DX: J44.9 Chronic obstructive pulmonary disease, unspecified (principal); R00.0 Tachycardia, unspecified; Z87.891 Personal history of nicotine dependence | CPT/HCPCS: 99212 ==

== ENCOUNTER → 2021-07-31 08:05 | Outpatient (BNVA) | payer MEDICARE, SELFPAY | PROVIDERS: PCP Internal Medicine | DX: N32.81 Overactive bladder (principal) | CPT/HCPCS: Q3014 ==

== ENCOUNTER → 2021-08-30 09:52 | Outpatient (BNVA) | payer MEDICARE, SELFPAY | PROVIDERS: PCP Internal Medicine | DX: R35.0 Frequency of micturition (principal); R35.89 Other polyuria | CPT/HCPCS: 51798; 99212 ==

== ENCOUNTER → 2021-09-10 09:17 | Outpatient (BNVA) | payer MEDICARE, SELFPAY | PROVIDERS: PCP Internal Medicine; Visit Provider Internal Medicine | DX: J44.9 Chronic obstructive pulmonary disease, unspecified (principal); Z87.891 Personal history of nicotine dependence | CPT/HCPCS: 99212 ==

== ENCOUNTER → 2021-09-13 10:46 | Outpatient (BNVA) | payer MEDICARE, SELFPAY | PROVIDERS: PCP Internal Medicine | DX: N32.81 Overactive bladder (principal) | CPT/HCPCS: Q3014 ==

== ENCOUNTER 2021-09-24 08:02 | Day surgery (SDC) | payer MEDICARE, SELFPAY ==
[2021-09-18 14:59] VITALS: BMI 28.3
--- NOTE | 2021-09-21 11:40 | HO.ANESPROP2 ---
Documented by User: Gracie Massey NP 09/21/21 11:43 HPI - Anesthesia Eval Consult details Narrative: 81yo F for Cystoscopy Botox Injection Pulmo cleared PMFSH Active Problems Active Problems: All Active Problems (Updated 09/18/21 @ 14:54 by Lisette Nair RN) Overactive bladder (Acute) Hospital discharge follow-up (Acute) Syncope (Acute) Rib pain on right side (Acute) Alcoholism (Acute) COPD, severe (Acute) Medicare annual wellness visit, subsequent (Acute) Tachycardia (Acute) Ex-smoker (Acute) Polyuria (Acute) Chronic GERD (Acute) Lipid disorder (Acute) COPD, severe (Acute) Hypertension (Acute) Past Medical History Medical History (Updated 09/18/21 @ 14:54 by Lisette Nair RN) Chronic GERD COPD, severe COVID-19 vaccination declined Ex-smoker Frequency of micturition Hypertension Influenza vaccination declined Lipid disorder Polyuria Tachycardia Family History Family History Father HTN (hypertension) Mother No problems noted. Brother No problems noted. Son No problems noted. Son No problems noted. Daughter No problems noted. Daughter No problems noted. Surgical History Surgical History (Updated 09/18/21 @ 14:53 by Lisette Nair RN) Hx of cataract extraction Social History Social History (Updated 09/18/21 @ 14:59 by Lisette Nair RN) Housing: House Alcohol intake: current Alcohol intake frequency: a few times a week Patient Tobacco Use Status: Former Tobacco user Quit Date: 2013 Tobacco use type: Cigarette Years Smoked: 60 years e-Cigarette/Vaping Use: Never Used Second Hand Smoke Exposure: No service: No Current occupational status: retired Cognitive needs: No Hearing needs: No Vision needs: Yes Meds Allergies Allergy/AdvReac Type Severity Reaction Status Date / Time No Known Allergies Allergy Verified 09/18/21 08:51 Home Medications Medication Instructions Recorded Confirmed Last Taken Type prednisone 5 mg tablet 5 mg PO Q OTHER DAY ASTHMA 07/05/21 09/18/21 Unknown History Exam Exam Date and Time: September 21, 2021 1140 Height,Weight and Vital Signs: Height 5 ft 4 in Weight 74.843 kg Pertinent Lab Results Pertinent Lab Results: Laboratory Tests 04/11/21 04/11/21 07:40 07:40 WBC 12.7 H Hgb 11.1 L Hct 37.2 Plt Count 510 H Sodium 138 Potassium 4.1 Chloride 102 Carbon Dioxide 26 BUN 14 Creatinine 1.04 Narrative Narrative: EKG 11/2020 Vent. Rate : 075 BPM ? ? Atrial Rate : 075 BPM ?? P-R Int : 144 ms? QRS Dur : 116 ms ? ? QT Int : 402 ms ? ? ? P-R-T Axes : 050 049 054 degrees ?? QTc Int : 448 ms ? Normal sinus rhythm Incomplete right bundle branch block Nonspecific ST and T wave abnormality Abnormal ECG No significant changes seen Assessment and Plan Assessment Anesthesia Assessment: Chart Reviewed Documented by User: Mati Valenzuela MD 09/24/21 17:20 [facility] Past Medical History Medical History (Updated 09/18/21 @ 14:54 by Lisette Nair RN) Chronic GERD COPD, severe COVID-19 vaccination declined Ex-smoker Frequency of micturition Hypertension Influenza vaccination declined Lipid disorder Polyuria Tachycardia Family History Family History Father HTN (hypertension) Mother No problems noted. Brother No problems noted. Son No problems noted. Son No problems noted. Daughter No problems noted. Daughter No problems noted. Family history of problems with anesthesia: No Surgical History Surgical History (Updated 09/18/21 @ 14:53 by Lisette Nair RN) Hx of cataract extraction History of Problems with Anesthesia: No Social History Social History (Updated 09/18/21 @ 14:59 by Lisette Nair RN) Housing: House Alcohol intake: current Alcohol intake frequency: a few times a week Patient Tobacco Use Status: Former Tobacco user Quit Date: 2013 Tobacco use type: Cigarette Years Smoked: 60 years e-Cigarette/Vaping Use: Never Used Second Hand Smoke Exposure: No service: No Current occupational status: retired Cognitive needs: No Hearing needs: No Vision needs: Yes Meds Allergies Allergy/AdvReac Type Severity Reaction Status Date / Time No Known Allergies Allergy Verified 09/18/21 08:51 Home Medications Medication Instructions Recorded Confirmed Last Taken Type prednisone 5 mg tablet 5 mg PO Q OTHER DAY ASTHMA 07/05/21 09/18/21 Unknown History Exam Airway Mallampati Class: III TM Dist: >3cm Neck ROM: Full Denture: Upper Loose/Missing/Broken Teeth: Yes Heart: S1,S2 Lungs: b/l breath sounds Assessment and Plan Assessment Anesthesia Assessment: Anesthesia Plan Discussed Final Anesthetic Review Family History of Problems with Anesthesia: No History of Problems with Anesthesia: No NPO: Yes ASA Class: III Final Preanesthetic Review: Meds/Allgs Chart Reviewed, Consent Obtained/Reviewed, Anes Risks/Benef Reviewed and DNR Form (If Appl.) Patient Risk: Intermediate Procedure Risk: Intermediate Anesthetic Plan Anesthetic Plan: GA Disposition: Standard PACU
[2021-09-24 08:16] VITALS: BMI 28.3
[2021-09-24 08:28] VITALS: BP 147/69; PULSE 104; RESP 16; TEMP 36.5; O2SAT 97
[2021-09-24 08:33] VITALS: PULSE 96
[2021-09-24] MEDS: Lactated Ringers 1,000 ML 100 ML IVCONT (08:41)
--- NOTE | 2021-09-24 10:30 | MHC.SHP ---
Pre-Procedural Eval Section A Date of Service: 09/24/21 The patient is an INPATIENT: No Changes since office visit: No Cold of Flu in the past 2 weeks, No New Medical Problems, No Changes in Medication and No Patient answered all questions The History & Physical has been completed within 30 days and I have reviewed it.: Yes Section B Chief Complaint: overactive bladder Details of Present Illness: Botox cystoscopy Allergies: Allergies Allergy/AdvReac Type Severity Reaction Status Date / Time No Known Allergies Allergy Verified 09/18/21 08:51 Review of Systems Sugical H&P ROS: Negative: Constitution, Cardiovascular, Respiratory, Neurological, Psychiatric, Hem-Onc, Allergic/Immunologic, Gastrointestinal, Genitourinary, Musculoskeletal, Integumentary, Endocrine and Eyes/Ears/Nose/Throat Exam Surgical H&P Exam: Normal: HEENT, Normal: Heart, Normal: Lungs, Normal: Extremities, Normal: Abdomen, Normal: Skin and Normal: Neurological Plan Diagnosis/Plan: Unchanged I have reviewed the history and physical and performed a pertinent physical examination on my patient. No changes have occurred unless specified.
--- NOTE | 2021-09-24 11:09 | P.OP_ITS ---
Operative Note Operative Note Date of Service: 09/24/21 Narrative: PreOperative Diagnosis: Overactive bladder with failure of medications Post Operative Diagnosis: Overactive bladder with failure of medications, stiff bladder Procedure: Cystoscopy with injection 100 units Botox intra detrusor muscle, hydrodistension Surgeon: Dr Efraín Stubbs Anesthesia: Sedation Indications for procedure: Is a very pleasant 81-year-old female. Has persistent urgency and frequency. Has failed oral medications. At office cystoscopy has effective emptying with minimal urethral rotation on cough. For cystoscopy and Botox injection. Is aware of the risks and benefits particularly related to urinary retention and possible infection. Procedure: After informed consent was verified the patient was brought to the operating room and placed in a supine position. Anesthesia was administered per protocol. Cystoscopy performed with 22 Bulgarian cystoscope. Bladder was emptied of urine. Bladder was refilled. Using 100 units of Botox mixed in 10 cc of normal saline injections were placed at the back wall of the bladder. 0.5cc placed at each injection site. Injections were placed in a grid 5 across and for high. Injections were placed from the inferior to superior position. Trabeculations on the bladder wall with targeted for each injection site. Hydrodistension performed with capacity of only 600cc Procedure was tolerated well. Patient was extubated and transferred in stable condition to the recovery area. Pathology: None Drains: None
[2021-09-24 11:17] VITALS: BP 99/49; PULSE 76; RESP 20; TEMP 36.2; O2SAT 99
[2021-09-24 11:22] VITALS: BP 88/47; PULSE 75; RESP 18; O2SAT 100
[2021-09-24 11:27] VITALS: BP 91/50; PULSE 88; RESP 18; O2SAT 100
[2021-09-24 11:32] VITALS: BP 112/56; PULSE 96; RESP 18; TEMP 36.1; O2SAT 98
[2021-09-24] MEDS: Phenazopyridine HCL 100 MG TABLET PO (11:32)
[2021-09-24] MEDS: Acetaminophen 325 MG TABLET 650 MG PO (11:33)
== END 2021-09-24 12:06 ==
LOC: HO.SSS 08:03
PROVIDERS: PCP Internal Medicine; Visit Provider Urology
PROC: 3E0K8GC Introduction of Other Therapeutic Substance into Genitourinary Tract, Via Natural or Artificial Opening Endoscopic (ICD-10-PCS; CPT 52287; principal; 2021-09-24 09:50)
DX: N32.81 Overactive bladder (principal); N32.89 Other specified disorders of bladder; R35.0 Frequency of micturition; R39.15 Urgency of urination; I10 Essential (primary) hypertension; J44.9 Chronic obstructive pulmonary disease, unspecified; E75.6 Lipid storage disorder, unspecified; R00.0 Tachycardia, unspecified; K21.9 Gastro-esophageal reflux disease without esophagitis; Z79.52 Long term (current) use of systemic steroids; Z79.899 Other long term (current) drug therapy; Z87.891 Personal history of nicotine dependence
CPT/HCPCS: 52287; J0585; J1956; J2250; J2405; J3010

== ENCOUNTER → 2021-10-16 09:26 | Outpatient (BNVA) | payer MEDICARE, SELFPAY | PROVIDERS: PCP Internal Medicine; Visit Provider Urology | DX: N32.81 Overactive bladder (principal) | CPT/HCPCS: 51798 ==

== ENCOUNTER 2022-01-15 09:57 | Outpatient (REF) | payer MEDICARE, SELFPAY ==
[2022-01-15 11:38] LABS: MANUAL DIFF FLAG NO
[2022-01-15 11:55] LABS: Basophils Absolute Auto 0.1 X10*3/uL (0.0-0.2); Basophils Percent Auto 0.9 % (0-2); Eosinophils Absolute Auto 0.4 X10*3/uL (0.0-0.4); Eosinophils Percent Auto 2.9 % (0-4); Hemoglobin 9.8 g/dl (12.0-16.0); Imm Gran Abs Auto 0.06 X10*3/uL (0.00-0.03); Imm Gran Pct Auto 0.5 % (0.0-0.4); Lymphocytes Absolute Auto 3.7 X10*3/uL (1.2-4.9); Lymphocytes Percent Auto 29.8 % (20-40); Mean Corpuscular HGB Conc 28.8 g/dl (31.0-35.0); Mean Corpuscular Hemoglobin 20.3 pg (27.0-33.0); Mean Corpuscular Volume 70.4 fL (80.0-98.0); Mean Platelet Volume 10.8 fL (9.4-12.3); Monocytes Absolute Auto 1.1 X10*3/uL (0.1-1.2); Monocytes Percent Auto 8.8 % (2-11); Neutrophils Absolute Auto 7.1 x10*3/uL (2.0-8.3); Neutrophils Percent Auto 57.1 % (45-73); Platelet Count 502 X10*3/uL (160-400); Red Blood Count 4.83 X10*6/uL (4.20-5.50); Red Cell Distribution Width 17.9 % (11.0-16.0); White Blood Count 12.4 X10*3/uL (4.8-10.8)
[2022-01-15 12:52] LABS: Alanine Aminotransferase 16 U/L (0-31); Albumin Level 4.3 g/dL (3.5-5.0); Alkaline Phosphatase 185 U/L (39-117); Anion Gap 15 (12-20); Aspartate Amino Transferase 20 U/L (5-31); Bilirubin Total 0.3 mg/dL (0.0-1.0); Blood Urea Nitrogen 16 mg/dL (9-16); Calcium 9.5 mg/dL (8.4-10.2); Carbon Dioxide 25 mmol/L (22-29); Chloride 105 mmol/L (96-108); Estimated Glomerular Filt Rate 58; Glucose Random 99 mg/dL (60-115); Potassium 4.1 mmol/L (3.3-5.1); Sodium 141 mmol/L (135-145); Total Protein 7.3 g/dL (6.5-8.0)
== END 2022-01-15 09:58 | disposition home or self-care (01) ==
LOC: HO.HMGCLDS 09:57
PROVIDERS: PCP Internal Medicine; Visit Provider Internal Medicine
DX: E78.9 Disorder of lipoprotein metabolism, unspecified (principal); J44.9 Chronic obstructive pulmonary disease, unspecified; K21.9 Gastro-esophageal reflux disease without esophagitis; N32.81 Overactive bladder; I10 Essential (primary) hypertension
CPT/HCPCS: 36415; 80053; 85025

== ENCOUNTER 2022-01-18 08:48 | Outpatient (REF) | payer MEDICARE, SELFPAY | END 2022-01-18 08:49 | disposition home or self-care (01) | LOC: HO.LAB 08:48 | PROVIDERS: PCP Internal Medicine; Visit Provider Urology | DX: N32.81 Overactive bladder (principal); N39.0 Urinary tract infection, site not specified; Z79.899 Other long term (current) drug therapy | CPT/HCPCS: 51798; 87086; 99212 ==

== ENCOUNTER → 2022-03-12 09:33 | Outpatient (BNVA) | payer MEDICARE, SELFPAY | PROVIDERS: PCP Internal Medicine; Visit Provider Internal Medicine | DX: J44.9 Chronic obstructive pulmonary disease, unspecified (principal); R06.09 Other forms of dyspnea; D64.9 Anemia, unspecified; Z87.891 Personal history of nicotine dependence | CPT/HCPCS: 94010; 94618; 99212 ==

== ENCOUNTER 2022-05-15 09:25 | Outpatient (REF) | payer MEDICARE, SELFPAY ==
[2022-05-15 11:39] LABS: MANUAL DIFF FLAG NO
[2022-05-15 11:57] LABS: Basophils Absolute Auto 0.1 X10*3/uL (0.0-0.2); Basophils Percent Auto 0.7 % (0-2); Eosinophils Absolute Auto 0.3 X10*3/uL (0.0-0.4); Eosinophils Percent Auto 3.2 % (0-4); Hematocrit 45.5 % (37.0-47.0); Hemoglobin 14.1 g/dl (12.0-16.0); Imm Gran Abs Auto 0.08 X10*3/uL (0.00-0.03); Imm Gran Pct Auto 0.7 % (0.0-0.4); Lymphocytes Absolute Auto 2.3 X10*3/uL (1.2-4.9); Lymphocytes Percent Auto 21.4 % (20-40); Mean Corpuscular Hemoglobin 25.9 pg (27.0-33.0); Mean Corpuscular Volume 83.5 fL (80.0-98.0); Mean Platelet Volume 10.7 fL (9.4-12.3); Monocytes Absolute Auto 0.4 X10*3/uL (0.1-1.2); Neutrophils Absolute Auto 7.5 x10*3/uL (2.0-8.3); Platelet Count 405 X10*3/uL (160-400); Red Blood Count 5.45 X10*6/uL (4.20-5.50); Red Cell Distribution Width 17.6 % (11.0-16.0); White Blood Count 10.7 X10*3/uL (4.8-10.8)
[2022-05-15 12:27] LABS: Alanine Aminotransferase 21 U/L (0-31); Albumin Level 4.3 g/dL (3.5-5.0); Alkaline Phosphatase 180 U/L (39-117); Anion Gap 16 (12-20); Aspartate Amino Transferase 20 U/L (5-31); Bilirubin Total 0.4 mg/dL (0.0-1.0); Blood Urea Nitrogen 11 mg/dL (9-16); Calcium 9.7 mg/dL (8.4-10.2); Carbon Dioxide 25 mmol/L (22-29); Chloride 105 mmol/L (96-108); Estimated Glomerular Filt Rate > 60; Glucose Random 110 mg/dL (60-115); Potassium 4.5 mmol/L (3.3-5.1); Sodium 141 mmol/L (135-145); Total Protein 7.2 g/dL (6.5-8.0)
[2022-05-15 12:32] LABS: Ferritin 23 ng/mL (10-250); Vitamin B12 222 pg/mL (200-900)
== END 2022-05-15 09:26 | disposition home or self-care (01) ==
LOC: HO.HMGCLDS 09:25
PROVIDERS: PCP Internal Medicine; Visit Provider Internal Medicine
DX: D50.9 Iron deficiency anemia, unspecified (principal); E78.9 Disorder of lipoprotein metabolism, unspecified; J44.9 Chronic obstructive pulmonary disease, unspecified; K21.9 Gastro-esophageal reflux disease without esophagitis; N32.81 Overactive bladder; I10 Essential (primary) hypertension
CPT/HCPCS: 36415; 80053; 82607; 82728; 85025

== ENCOUNTER 2022-09-24 09:17 | Outpatient (AMB) | payer MEDICARE, SELFPAY ==
[2022-09-24 09:32] VITALS: BP 110/70; PULSE 104; O2SAT 95; BMI 29.1
--- NOTE | 2022-09-24 09:32 | A.OFFVIS_ITS ---
Intake Vital Signs 09/24/22 09:32 Height 5 ft 4 in Weight 169 lb 12.095 oz BMI 29.1 BP 110/70 Blood Pressure Location Lt brachial Position Sitting Pulse 104 H Pulse Source Pulse Oximeter Pulse Oximetry (%) 95 Oxygen Delivery Method Room Air Intake Visit Reasons: copd Intake Note: pt is viktoria for follow up and states she is short of breath when walking short distances, in the house from room to room, or doing anything with exertion is kian, standing is difficult it starts with the breathing and she has to sit. Pull Through Hooker Required: No Allergies No Known Allergies Allergy (Verified 09/24/22 10:03) Medication List - Last Reconciled 09/24/22 by eDmarco Hilton MD albuterol sulfate 90 mcg/actuation (ProAir HFA) 1 inh inhalation QID PRN 30 days amlodipine 10 mg PO DAILY ferrous sulfate 324 mg PO BID 90 days ipratropium-albuterol 0.5 mg-3 mg(2.5 mg base)/3 mL 3 mL inhalation Q6H losartan 50 mg PO DAILY omeprazole 40 mg PO DAILY prednisone 5 mg PO Q OTHER DAY simvastatin 40 mg PO DAILY 90 days Do you need a note to return to daycare/school/sports/work: No HPI copd HPI Details This 82 years old very pleasant female has advanced chronic obstructive pulmonary disease but it has remained stable with her current regimen. She has had no acute infection or acute exacerbation. The main problem is she is under lot of stress the, as her daughter is telling her to move out of her house, She has difficulty in sleeping at night, because of her bladder condition. Remains tired during the daytime She her concern is that if she gets an independent apartment , she would need lot of assistance for home making and also helping to make her meals. As on the last visit we have checked her for oxygen requirement and she does not need oxygen. [facility] Medical History Chronic GERD COPD, severe COVID-19 vaccination declined Dyspnea on exertion Ex-smoker Frequency of micturition Hypertension Influenza vaccination declined Lipid disorder Polyuria Tachycardia Surgical History Hx of cataract extraction Family History Father HTN (hypertension) Mother No problems noted. Brother No problems noted. Son No problems noted. Son No problems noted. Daughter No problems noted. Daughter No problems noted. Social History Housing: House Alcohol intake: current Alcohol intake frequency: a few times a week Patient Tobacco Use Status: Former Tobacco user Quit Date: 2013 Tobacco use type: Cigarette Years Smoked: 60 years e-Cigarette/Vaping Use: Never Used Second Hand Smoke Exposure: No service: No Current occupational status: retired Cognitive needs: No Hearing needs: No Vision needs: Yes Review of Systems Const All systems reviewed & are unremarkable except as noted in HPI and below Eyes Reports no additional complaints ENT Reports no additional complaints Card Denies chest pain, Denies irregular heart rhythm, Denies leg edema and Reports dyspnea on exertion Resp Reports as per HPI and Reports dyspnea on exertion GI Reports heartburn (Being treated with omeprazole) Reports no additional complaints Musc Reports back pain (Mild) Skin/Breast Reports system reviewed and no additional complaints, except as documented Neuro Reports no additional complaints Psych Reports no additional complaints Physical Exam Vital Signs: Last Vital Signs Pulse 104 H 09/24/22 09:32 BP 110/70 09/24/22 09:32 Pulse Ox 95 09/24/22 09:32 Oxygen Delivery Method Room Air 09/24/22 09:32 BMI result Body Mass Index 29.1 Const Other: Complexion is somewhat pale. General: comfortable, no acute distress, alert and awake Orientation/consciousness: patient oriented x3 HEENT Head: Yes normal to inspection General nose exam: No nasal polyps present and No nasal discharge present Face and sinus: Yes sinuses nontender Mouth: oropharynx normal Throat: Yes posterior oropharynx normal Eyes General: appearance normal, both eyes and all related structures Neck Neck: Yes normal visual inspection, Yes no lymphadenopathy, Yes trachea midline and Yes no JVD Thyroid: Thyroid normal Chest Chest palpation & inspection: normal inspection of the chest, normal palpation of entire chest wall and no tenderness Resp Other: Percussion note resonant, breath sounds are distant with prolonged expiratory phase. No wheezes rhonchi or Creps are heard today . Cardio Palpation: normal PMI Rate: regular rate Rhythm: regular rhythm Heart sounds: no gallops and no murmurs GI Palpation (GI): Soft to palpation, nontender, No hepatosplenomegaly present and no masses Auscultation: normal bowel sounds Back/Spine/Pelvis Thoracic/Lumbar Spine: thoracic and lumbar spine normal to inspection and thoraco-lumbar ROM limited Skin General skin exam: no rashes or lesions noted Neuro General: patient oriented x3 and no focal motor deficits Cranial nerves: Yes CN's II-XII intact bilaterally Extrem General: Yes normal to inspection, Yes no clubbing, cyanosis or edema and Yes no calf tenderness Psych Appearance: grossly normal and well kempt Speech and movement: Normal speech and movement present Assessment & Plan Assessment & Plan (1) COPD, severe: Comment: SHE HAS RATHER SEVERE CHRONIC OBSTRUCTIVE PULMONARY DISEASE, WITH PARTIAL REVERSIBILITY INDICATING MORE LIKE ASTHMA/COPD OVERLAP SYNDROME. SHE IS NOT PRONE TO HAVE FREQUENT EXACERBATIONS. DOES NOT NEED OXYGEN. SHE IS DOING FAIRLY WELL ON HER CURRENT MEDICAL REGIMEN. [place] : Continue PREDNISONE 5 MG ON ALTERNATE DAYS. USE PROAIR 2 PUFFS Q 6 HOURS ONLY P.R.N DUO NEB UDs Q 6 HRS W/A ( may use up to 3 times a day ) Code(s): J44.9 - Chronic obstructive pulmonary disease, unspecified (2) Ex-smoker: Comment: SHE QUIT 3 YEARS AGO AFTER SMOKING 1 PACK A DAY FOR 60 YEARS. HAS FELT MUCH BETTER SINCE SHE QUIT Code(s): Z87.891 - Personal history of nicotine dependence (3) Dyspnea on exertion: Comment: INCREASED DYSPNEA ON EXERTION IS DEFINITELY CONTRIBUTED BY HER ANEMIA. AND IS DUE TO COMBINATION OF COPD/ANEMIA AND POOR WERE GENERAL CONDITIONING. * a note is given to her that she is not able to do any physical labor. She would need assistance for home making and also for meals . Code(s): R06.09 - Other forms of dyspnea Coding Level of Care Code Est Pt Level 3 (30441) Diagnoses COPD, severe J44.9 Ex-smoker Z87.891 Dyspnea on exertion R06.09
== END 2022-09-24 10:09 | disposition home or self-care (01) ==
PROVIDERS: PCP Internal Medicine; Visit Provider Internal Medicine
DX: J44.9 Chronic obstructive pulmonary disease, unspecified (principal); Z87.891 Personal history of nicotine dependence; R06.09 Other forms of dyspnea
CPT/HCPCS: 99213

== ENCOUNTER → 2022-09-24 09:17 | Outpatient (BNVA) | payer MEDICARE, SELFPAY | PROVIDERS: PCP Internal Medicine; Visit Provider Internal Medicine | DX: J44.9 Chronic obstructive pulmonary disease, unspecified (principal); R06.09 Other forms of dyspnea; Z87.891 Personal history of nicotine dependence; Z79.52 Long term (current) use of systemic steroids; Z79.899 Other long term (current) drug therapy | CPT/HCPCS: 99212 ==

== ENCOUNTER 2022-10-10 07:52 | Outpatient (REF) | payer MEDICARE, SELFPAY ==
[2022-10-10 11:25] LABS: MANUAL DIFF FLAG NO
[2022-10-10 11:51] LABS: Basophils Absolute Auto 0.1 X10*3/uL (0.0-0.2); Basophils Percent Auto 0.6 % (0-2); Eosinophils Absolute Auto 0.3 X10*3/uL (0.0-0.4); Eosinophils Percent Auto 2.4 % (0-4); Hemoglobin 14.7 g/dl (12.0-16.0); Imm Gran Abs Auto 0.13 X10*3/uL (0.00-0.03); Imm Gran Pct Auto 1.1 % (0.0-0.4); Lymphocytes Absolute Auto 2.4 X10*3/uL (1.2-4.9); Lymphocytes Percent Auto 20.1 % (20-40); Mean Corpuscular HGB Conc 30.6 g/dl (31.0-35.0); Mean Corpuscular Hemoglobin 27.5 pg (27.0-33.0); Mean Corpuscular Volume 89.9 fL (80.0-98.0); Mean Platelet Volume 11.3 fL (9.4-12.3); Monocytes Absolute Auto 1.3 X10*3/uL (0.1-1.2); Monocytes Percent Auto 10.7 % (2-11); Neutrophils Absolute Auto 7.8 x10*3/uL (2.0-8.3); Neutrophils Percent Auto 65.1 % (45-73); Platelet Count 345 X10*3/uL (160-400); Red Blood Count 5.34 X10*6/uL (4.20-5.50); Red Cell Distribution Width 14.8 % (11.0-16.0)
[2022-10-10 12:30] LABS: Vitamin B12 322 pg/mL (200-900)
[2022-10-10 12:31] LABS: Alanine Aminotransferase 32 U/L (0-31); Albumin Level 3.8 g/dL (3.5-5.0); Alkaline Phosphatase 139 U/L (39-117); Anion Gap 13 (12-20); Aspartate Amino Transferase 29 U/L (5-31); Bilirubin Total 0.5 mg/dL (0.0-1.0); Blood Urea Nitrogen 12 mg/dL (9-16); Calcium 9.4 mg/dL (8.4-10.2); Carbon Dioxide 28 mmol/L (22-29); Chloride 102 mmol/L (96-108); Estimated Glomerular Filt Rate 49; Glucose Random 103 mg/dL (60-115); Iron 42 mcg/dL (30-160); Percent Iron Saturation 17 % (15-50); Potassium 3.8 mmol/L (3.3-5.1); Sodium 139 mmol/L (135-145); Total Iron Binding Capacity 252 mcg/dL (228-428); Total Protein 7.1 g/dL (6.5-8.0); Unsaturated Iron Binding 210 ug/dL
[2022-10-10 12:34] LABS: Ferritin 88 ng/mL (10-250)
== END 2022-10-10 07:53 | disposition home or self-care (01) ==
LOC: HO.HMGCLDS 07:52
PROVIDERS: PCP Internal Medicine; Visit Provider Internal Medicine
DX: E78.9 Disorder of lipoprotein metabolism, unspecified (principal); I10 Essential (primary) hypertension; J44.9 Chronic obstructive pulmonary disease, unspecified; N32.81 Overactive bladder; R79.89 Other specified abnormal findings of blood chemistry; D64.9 Anemia, unspecified
CPT/HCPCS: 36415; 80053; 82607; 82728; 83540; 85025

== ENCOUNTER 2022-10-18 10:28 | Outpatient (AMB) | payer MEDICARE, SELFPAY ==
[2022-10-18 10:38] VITALS: BP 122/56; PULSE 129; O2SAT 96; BMI 29.0
--- NOTE | 2022-10-18 10:38 | A.OFFVIS_ITS ---
Intake Vital Signs 10/18/22 10:38 Height 5 ft 4 in Weight 169 lb 2 oz BMI 29.0 BP 122/56 L Blood Pressure Location Rt brachial Position Sitting Pulse 129 H Pulse Source Pulse Oximeter Pulse Oximetry (%) 96 Oxygen Delivery Method Room Air Intake Visit Reasons: SWV G0439 Allergies No Known Allergies Allergy (Verified 10/18/22 10:39) Medication List - Last Reconciled 10/18/22 by Flavio Bundy MD albuterol sulfate 90 mcg/actuation (ProAir HFA) 1 inh inhalation QID PRN 30 days amlodipine 10 mg PO DAILY ferrous sulfate 324 mg PO BID 90 days ipratropium-albuterol 0.5 mg-3 mg(2.5 mg base)/3 mL 3 mL inhalation Q6H losartan 50 mg PO DAILY omeprazole 40 mg PO DAILY prednisone 5 mg PO Q OTHER DAY simvastatin 40 mg PO DAILY 90 days Do you need a note to return to daycare/school/sports/work: No HPI [facility] G0439 HPI Details Patient is 82-year-old female with a history of severe COPD . Patient is worried today as her daughter has given her warning to leave the house and patient does not have a place to live She is requesting a letter for housing which I did provided. She is taking all her medications blood pressure is stable She had labs done less than 10 days ago, reviewed Patient sees Dr. Hilton for the management of COPD She is also on simvastatin 40 mg for lipid control and takes omeprazole 40 mg for chronic GERD management. Patient uses cane for ambulation and also have a weak eye sight HPI Comments History of Present Illness Details AWV Medical/social history reviewed Past medical history reviewed [place] of care / care team list updated Surgical/ hospitalization history reviewed Current medications including OTC and supplements reviewed Family history reviewed Tobacco controlled form updated Alcohol use form updated Illicit drug use in social history reviewed Current diagnosis of depression ?screening updated Appropriate PHQ 2/PHQ-9 completed . Vital signs reviewed Alcohol tobacco drug use reviewed and discussed . MMSE completed . ? Fall risk: ?Assessed Fall history: ?None Have you had any falls with injury in the past year?? No Have you had 2 or more falls in the past year?? No Fall risk assessment completed Home safety discussed with the patient Functional ability assessed and discussed and documented Activities of daily living reviewed and appropriate actions taken . HRA filled out by the patient and reviewed by provider and scanned . Appropriate written screening schedule established . Any health advise needed provided . Advance care planning discussed with the patient , necessary paperwork filled Examination IPPE/AWE: Balance intact Romberg intact Tandem walk failed walk-in turn intact rise from sit to stand failed . ?Hearing ?whisper test pass . Medication list reviewed, patient is stable on medications All other providers patient is seeing discussed and noted . [facility] Medical History Chronic GERD COPD, severe COVID-19 vaccination declined Dyspnea on exertion Ex-smoker Frequency of micturition Hypertension Influenza vaccination declined Lipid disorder Polyuria Tachycardia Surgical History Hx of cataract extraction Family History Father HTN (hypertension) Mother No problems noted. Brother No problems noted. Son No problems noted. Son No problems noted. Daughter No problems noted. Daughter No problems noted. Social History Housing: House Alcohol intake: current Alcohol intake frequency: a few times a week Patient Tobacco Use Status: Former Tobacco user Quit Date: 2013 Tobacco use type: Cigarette Years Smoked: 60 years e-Cigarette/Vaping Use: Never Used Second Hand Smoke Exposure: No service: No Current occupational status: retired Cognitive needs: No Hearing needs: No Vision needs: Yes Questionnaire Medicare Wellness Checkup What is your age?: 80 or older What gender do you identify with?: female During the past 4 weeks, how much have you been bothered by emotional problems such as feeling anxious, depressed, irritable, sad or downhearted, and blue?: extremely During the past 4 weeks, has your physical & emotional health limited your social activities with family, friends, neighbors, or groups?: moderately During the past 4 weeks, how much bodily pain have you generally had?: no pain During the past 4 weeks, was someone available to help you if you needed & wanted help?: no, not at all During the past 4 weeks, what was the hardest physical activity you could do for at least 2 minutes?: very light Can you get to places out of walking distance without help? (For eg., can you travel alone on buses, taxis or drive your car?): No Can you go shopping for groceries or clothes without someone's help?: No Can you prepare your own meals?: Yes Can you do your housework without help?: No Because of any health problems, do you need the help of another person with your personal care needs such as eating, bathing, dressing or getting around the house?: Yes Can you handle your own money without help?: Yes During the past 4 weeks, how would you rate your health in general?: good During the past 4 weeks how have things been going for you?: pretty bad Are you having difficulties driving your car?: not applicable, I don't use a car Do you always fasten your seat belt when you are in a car?: yes, usually During past 4 weeks, have you been bothered by the following: never: Sexual problems? and Problems using the telephone?, seldom: Teeth or denture problems?, sometimes: Falling or dizzy when standing up and Trouble eating well? and often: Tiredness or fatigue? Have you fallen 2 or more times in the past year?: No Are you afraid of falling?: Yes Are you a smoker?: no During the past 4 weeks, how many drinks of wine, beer, or other alcoholic beverages did you have?: no alcohol at all Do you exercise for about 20 minutes 3 or more times a week?: no, I usually do not exercise this much Have you been given information to help with the following?: yes: Hazards in your house that might hurt you? and yes: Keeping track of your medications? How often do you have trouble taking medicines the way you have been told to take them?: I always take medicine as prescribed How confident are you that you can control & manage most of your health problems?: somewhat confident What is your race?: White Mini Mental State Exam (MMSE) Orientation What is the (year) (season) (date) (day) (month)?: year, season, date, day and month Where are we (state) (county) (town or city) (hospital) (floor)?: state, county, town or city, hospital/clinic and floor Score Score: 10 Activity of Daily Living Bathing - sponge bath, tub bath or shower: receives no assistance (gets in/out by self, if usual bathing means Dressing - getting clothes from closets & drawers, including inner/outer garments & fasteners.: gets clothes & gets completely dressed without help Toileting - going to the 'toilet room' for urine/bowel elimination & cleaning self/arranging clothes: goes to toilet room, cleans self, arranges clothes without help Transfer: moves in & out of bed and chair without help (may use support object) Continence: supervision helps urination/bowel control; catheter use; incontinent Feeding: feeds self without help Total Score: 1 Information obtained from: patient Using telephone: independent Traveling: dependent Shopping: dependent Preparing meals: dependent Housework: dependent Taking medicine: independent Managing money: independent PHQ-9 Over the last 2 weeks, how often have you been bothered by any of the following problems? 1. Little interest or pleasure in doing things: nearly every day 2. Feeling down, depressed, or hopeless: nearly every day 3. Trouble falling or staying asleep, or sleeping too much: nearly every day 4. Feeling tired or having little energy: nearly every day 5. Poor appetite or overeating: not at all 6. Feeling bad about yourself - or that you are a failure or have let yourself or your family down: not at all 7. Trouble concentrating on things, such as reading the newspaper or watching television: not at all 8. Moving or speaking so slowly that other people could have noticed. Or the opposite - being so fidgety or restless that you have been moving around a lot more than usual: not at all 9. Thoughts that you would be better off or of hurting yourself in some way: several days Total score: 13 Depression Screening Interpretation: Positive 85447 - PHQ-9 Billing: Yes Source: Developed by Drs. Bradford Thakkar, Jen Franz, Jan Miranda and colleagues, with an educational andrez from [employer]. Review of Systems Const Denies chills and Denies fever(s) ENT Denies epistaxis and Denies nasal discharge Card Denies chest pain Resp Denies chest congestion, Denies cough and Denies hemoptysis GI Denies diarrhea and Denies nausea Skin/Breast Denies rash Neuro Reports no additional complaints Psych Reports no additional complaints Endo Reports no additional complaints Physical Exam Vital Signs: Last Vital Signs Pulse 129 H 10/18/22 10:38 BP 122/56 L 10/18/22 10:38 Pulse Ox 96 10/18/22 10:38 Oxygen Delivery Method Room Air 10/18/22 10:38 BMI result Body Mass Index 29.0 Const General: cooperative, comfortable and no acute distress Orientation/consciousness: patient oriented x3 HEENT Head: Yes normocephalic Eyes General: appearance normal, both eyes and all related structures Neck Other: Supple Neck: Yes supple Resp Effort & Inspection: no cough and no stridor Cardio Rhythm: regular rhythm Heart sounds: S1 normal heart sound present and S2 normal heart sound present Skin General skin exam: turgor normal Neuro Other: Motor sensory intact General: patient oriented x3, tone normal and moves all extremities Extrem Other: No lower extremity swelling. Right lower extremity: no edema Left lower extremity: no edema Psych Other: Normal effect, speech clear Assessment & Plan Assessment & Plan (1) Medicare annual wellness visit, subsequent: Code(s): Z00.00 - Encounter for general adult medical examination without abnormal findings (2) Anemia: Comment: LAST HEMOGLOBIN 9.8, MICROCYTIC HYPOCHROMIC, PROBABLY DUE TO IRON DEFICIENCY. THIS IS CONTRIBUTING TO HER INCREASED DYSPNEA ON MINIMAL EXERTION. PATIENT WAS SUPPOSED TO BE ON IRON SUPPLEMENTS WHICH SHE HAS NOT BEEN TAKING. I ADVISED HER THAT SHE SHOULD START TAKING FERROUS SULFATE 324 MG DAILY. CONTINUE TO TAKE OMEPRAZOLE 40 MG DAILY FOR GASTRIC PROTECTION. Code(s): D64.9 - Anemia, unspecified (3) LFT elevation: Code(s): R79.89 - Other specified abnormal findings of blood chemistry (4) COPD, severe: Code(s): J44.9 - Chronic obstructive pulmonary disease, unspecified (5) Hypertension: Code(s): I10 - Essential (primary) hypertension Qualifiers: Hypertension type: primary hypertension Qualified Code(s): I10 - Essential (primary) hypertension (6) Lipid disorder: Code(s): E78.9 - Disorder of lipoprotein metabolism, unspecified (7) Chronic GERD: Code(s): K21.9 - Gastro-esophageal reflux disease without esophagitis (8) Alcoholism: Comment: Patient is cutting down Code(s): F10.20 - Alcohol dependence, uncomplicated (9) Breathlessness on exertion: Code(s): R06.81 - Apnea, not elsewhere classified (10) Homeless: Code(s): Z59.00 - Homelessness unspecified Plan Patient is 82-year-old female with a history of severe COPD . Patient is worried today as her daughter has given her warning to leave the house and patient does not have a place to live She is requesting a letter for housing which I did provided. She is taking all her medications blood pressure is stable She had labs done less than 10 days ago, reviewed Patient sees Dr. Hilton for the management of COPD She is also on simvastatin 40 mg for lipid control and takes omeprazole 40 mg for chronic GERD management. Patient uses cane for ambulation and also have a weak eye sight Quality Reporting (2019) Depression/Bipolar (159/160/161/177) PHQ-9: Total score: 13 Coding Level of Care Code Medicare Subsequent (G0439) Est Pt Level 4 (89394) Diagnoses Medicare annual wellness visit, subsequent Z00.00 Anemia D64.9 LFT elevation R79.89 COPD, severe J44.9 Hypertension I10 Hypertension type: primary hypertension Lipid disorder E78.9 Chronic GERD K21.9 Alcoholism F10.20 Breathlessness on exertion R06.81 Homeless Z59.00 CPT Codes Advance Care Planning - Advance Care Planning discussion: On file, no changes ([id number]) Advance Care Planning Advance Care Planning discussion: On file, no changes
--- NOTE | 2022-10-18 10:38 | A.OFFPC_ITS ---
Intake Visit Reasons: SWV G0439 Allergies No Known Allergies Allergy (Verified 09/24/22 10:03) Tobacco use date assessed: 08/16/22 [facility] Medical History Chronic GERD COPD, severe COVID-19 vaccination declined Dyspnea on exertion Ex-smoker Frequency of micturition Hypertension Influenza vaccination declined Lipid disorder Polyuria Tachycardia Surgical History Hx of cataract extraction Family History Father HTN (hypertension) Mother No problems noted. Brother No problems noted. Son No problems noted. Son No problems noted. Daughter No problems noted. Daughter No problems noted. Social History Housing: House Alcohol intake: current Alcohol intake frequency: a few times a week Patient Tobacco Use Status: Former Tobacco user Quit Date: 2013 Tobacco use type: Cigarette Years Smoked: 60 years e-Cigarette/Vaping Use: Never Used Second Hand Smoke Exposure: No service: No Current occupational status: retired Cognitive needs: No Hearing needs: No Vision needs: Yes Questionnaire Thrive Questionnaire Date Thrive assessed: 03/16/21 HEMANT-7 AMB Questionnaire HEMANT-7 Date HEMANT - 7 assessed: 03/16/21 Source: Developed by Drs. Bradford Thakkar, Jen Franz, Jan Miranda and colleagues, with an educational andrez from [email or web address]. Physical exam (Primary Care) Tobacco/Smoking Status: Tobacco use Status Tobacco use date assessed 08/16/22 08/16/22 08:48 Patient Tobacco Use Status Former Tobacco user 08/16/22 08:48 Tobacco use type Cigarette 08/16/22 08:48 e-Cigarette/Vaping Use Never Used 08/16/22 08:48 Thrive Assessment: Date of Thrive Assessment Date Thrive assessed 03/16/21 08/16/22 08:48 Coding Diagnoses
== END 2022-10-18 11:26 | disposition home or self-care (01) ==
PROVIDERS: PCP Internal Medicine; Visit Provider Internal Medicine
DX: Z00.00 Encounter for general adult medical examination without abnormal findings (principal); J44.9 Chronic obstructive pulmonary disease, unspecified; I10 Essential (primary) hypertension; K21.9 Gastro-esophageal reflux disease without esophagitis; Z59.00 Homelessness unspecified; D64.9 Anemia, unspecified; R79.89 Other specified abnormal findings of blood chemistry; F10.20 Alcohol dependence, uncomplicated; E78.9 Disorder of lipoprotein metabolism, unspecified; R06.81 Apnea, not elsewhere classified
CPT/HCPCS: 1123F; G0439

== ENCOUNTER 2023-01-21 09:20 | Outpatient (AMB) | payer MEDICARE, MEDICAID, SELFPAY ==
[2023-01-21 09:25] VITALS: BP 116/74; PULSE 92; O2SAT 94; BMI 29.3
--- NOTE | 2023-01-21 09:25 | A.OFFPC_ITS ---
Vital Signs 01/21/23 09:25 Height 5 ft 4 in Weight 171 lb BMI 29.3 BP 116/74 Blood Pressure Location Lt brachial Position Sitting Pulse 92 Pulse Source Pulse Oximeter Pulse Oximetry (%) 94 Oxygen Delivery Method Room Air Intake Visit Reasons: 3m follow up,htn, COPD Allergies No Known Allergies Allergy (Verified 01/21/23 09:25) Medication List - Last Reconciled 01/21/23 by Flavio Bundy MD albuterol sulfate 90 mcg/actuation (ProAir HFA) 1 inh inhalation QID PRN 30 days amlodipine 10 mg PO DAILY ferrous sulfate 324 mg PO BID 90 days ipratropium-albuterol 0.5 mg-3 mg(2.5 mg base)/3 mL 3 mL inhalation Q6H losartan 50 mg PO DAILY omeprazole 40 mg PO DAILY prednisone 5 mg PO Q OTHER DAY simvastatin 40 mg PO DAILY 90 days Tobacco use date assessed: 01/21/23 Fall risk assessment: No Falls in past year Last assessed Fall Risk: 01/21/23 Dental Screening Dental Screen Date: 01/21/23 Did you have a dental visit in the last 12 months?: No Did you have a dental problem in the last 6 months where you did not have access to dental care?: No Was dental information given to patient?: No HPI 3m follow up,htn, COPD HPI Details Patient is 82-year-old female came in today for her regular follow-up appointment Hypertension: Patient is taking amlodipine 10 mg along with losartan 50 mg, her blood pressure is stable Continue simvastatin 40 mg for lipid control Chronic GERD: Stable with omeprazole 40 mg Severe COPD managed by Dr. Hilton , she is on no oxygen, patient says that she feels that her COPD is getting worse, she has appointment coming up in March. Patient knows that if she starts to get more short of breath she is to call the office of Dr. Rogel to book earlier appointment She is asking for rescue inhaler refill, which I did send for her She does have a nebulizer machine which is helping her she is using it 3 times a day Labs are due LFT alkaline phosphatase is elevated however stable Urine incontinence continue but it is not that bad, patient says that she is not using any pads or diaper at this time. But she does have some. Continued to be homeless and is residing in a single room I have sent message to our licensed clinical social worker to help patient Follow-up May [facility] Medical History Dyspnea on exertion Influenza vaccination declined COVID-19 vaccination declined Frequency of micturition Tachycardia Ex-smoker Polyuria Chronic GERD Lipid disorder COPD, severe Hypertension Surgical History Hx of cataract extraction Family History Father HTN (hypertension) Mother No problems noted. Brother No problems noted. Son No problems noted. Son No problems noted. Daughter No problems noted. Daughter No problems noted. Social History Housing: House Alcohol intake: current Alcohol intake frequency: a few times a week Patient Tobacco Use Status: Former Tobacco user Quit Date: 2013 Tobacco use type: Cigarette Years Smoked: 60 years e-Cigarette/Vaping Use: Never Used Second Hand Smoke Exposure: No service: No Current occupational status: retired Cognitive needs: No Hearing needs: No Vision needs: Yes Questionnaire PHQ-9 Over the last 2 weeks, how often have you been bothered by any of the following problems? 1. Little interest or pleasure in doing things: more than half the days 2. Feeling down, depressed, or hopeless: several days 3. Trouble falling or staying asleep, or sleeping too much: nearly every day 4. Feeling tired or having little energy: nearly every day 5. Poor appetite or overeating: not at all 6. Feeling bad about yourself - or that you are a failure or have let yourself or your family down: not at all 7. Trouble concentrating on things, such as reading the newspaper or watching television: not at all 8. Moving or speaking so slowly that other people could have noticed. Or the opposite - being so fidgety or restless that you have been moving around a lot more than usual: not at all 9. Thoughts that you would be better off or of hurting yourself in some way: not at all Total score: 9 Depression Screening Interpretation: Negative Depression Screening Done: Yes [id number] - PHQ-9 Billing: Yes Source: Developed by Drs. Bradford L. Jen Thakkar Kurt Kroenke and colleagues, with an educational andrez from [employer]. Thrive Questionnaire Date Thrive assessed: 03/16/21 HEMANT-7 AMB Questionnaire HEMANT-7 Date HEMANT - 7 assessed: 01/21/23 Feeling nervous, anxious, or on edge: 0 = Not at all Not being able to stop or control worryin = Not at all Worrying too much about different things: 0 = Not at all Trouble relaxin = Not at all Being so restless that it is hard to sit still: 0 = Not at all Becoming easily annoyed or irritable: 0 = Not at all Feeling afraid as if something awful might happen: 0 = Not at all Total HEMANT-7 score (0-4 normal; 5-9 mild; 10-14 moderate; 15-21 severe): 0 Source: Developed by Jen Mitchell Kurt Kroenke and colleagues, with an educational andrez from [employer]. HEMANT-7 Assessment Billing HEMANT-7 Assessment Tool: HEMANT-7 Assessment 95755 Review of Systems Const Denies chills and Denies fever(s) ENT Denies epistaxis and Denies nasal discharge Card Denies chest pain Resp Denies chest congestion and Denies hemoptysis GI Denies diarrhea and Denies nausea Skin/Breast Denies rash Neuro Reports no additional complaints Psych Reports no additional complaints Endo Reports no additional complaints Physical exam (Primary Care) Vital Signs: Last Vital Signs Pulse 92 01/21/23 09:25 BP 116/74 01/21/23 09:25 Pulse Ox 94 01/21/23 09:25 Oxygen Delivery Method Room Air 01/21/23 09:25 BMI result Body Mass Index 29.3 Tobacco/Smoking Status: Tobacco use Status Tobacco use date assessed 01/21/23 01/21/23 09:26 Patient Tobacco Use Status Former Tobacco user 01/21/23 09:26 Tobacco use type Cigarette 01/21/23 09:26 e-Cigarette/Vaping Use Never Used 01/21/23 09:26 PHQ-9: PHQ-9 Score PHQ-9: Total score 9 01/21/23 10:52 Depression Screening Interpretation: Negative Thrive Assessment: Date of Thrive Assessment Date Thrive assessed 03/16/21 01/21/23 09:26 Const General: cooperative, comfortable and no acute distress Orientation/consciousness: patient oriented x3 HENMT Head: Yes normocephalic Eyes General: appearance normal, both eyes and all related structures Neck Neck: Yes supple Resp Other: Clear to auscultation Effort & Inspection: no cough and no stridor Cardio Rhythm: regular rhythm Heart sounds: S1 normal heart sound present and S2 normal heart sound present Skin General skin exam: turgor normal Neuro Other: Uses ambulatory aid General: patient oriented x3, tone normal and moves all extremities Extrem Right lower extremity: no edema Left lower extremity: no edema Assessment and Plan Assessment & Plan (1) LFT elevation: Code(s): R79.89 - Other specified abnormal findings of blood chemistry (2) Homeless: Code(s): Z59.00 - Homelessness unspecified (3) Overactive bladder: Code(s): N32.81 - Overactive bladder (4) Alcoholism: Comment: Patient is cutting down Code(s): F10.20 - Alcohol dependence, uncomplicated (5) COPD, severe: Code(s): J44.9 - Chronic obstructive pulmonary disease, unspecified (6) Lipid disorder: Code(s): E78.9 - Disorder of lipoprotein metabolism, unspecified (7) Hypertension: Code(s): I10 - Essential (primary) hypertension Qualifiers: Hypertension type: primary hypertension Qualified Code(s): I10 - Essential (primary) hypertension (8) Urge incontinence of urine: Code(s): N39.41 - Urge incontinence (9) Uses roller walker: Code(s): Z99.89 - Dependence on other enabling machines and devices (10) Risk for falls: Code(s): Z91.81 - History of falling Plan Patient is 82-year-old female came in today for her regular follow-up appointment Hypertension: Patient is taking amlodipine 10 mg along with losartan 50 mg, her blood pressure is stable Continue simvastatin 40 mg for lipid control Chronic GERD: Stable with omeprazole 40 mg Severe COPD managed by Dr. Hilton , she is on no oxygen, patient says that she feels that her COPD is getting worse, she has appointment coming up in March. Patient knows that if she starts to get more short of breath she is to call the office of Dr. Rogel to book earlier appointment She is asking for rescue inhaler refill, which I did send for her She does have a nebulizer machine which is helping her she is using it 3 times a day Labs are due Continued to drink in moderation LFT alkaline phosphatase is elevated however stable Urine incontinence continue but it is not that bad, patient says that she is not using any pads or diaper at this time. But she does have some. Continued to be homeless and is residing in a single room I have sent message to our licensed clinical social worker to help patient Follow-up May Orders: Orders Complete Blood Count Auto Diff Today E78.9 - Disorder of lipoprotein metabolism, unspecified, F10.20 - Alcohol dependence, uncomplicated, I10 - Essential (primary) hypertension, J44.9 - Chronic obstructive pulmonary disease, unspecified, N32.81 - Overactive bladder, N39.41 - Urge incontinence, R79.89 - Other specified abnormal findings of blood chemistry, Z59.00 - Homelessness unspecified Comprehensive Met. Panel Today E78.9 - Disorder of lipoprotein metabolism, unspecified, F10.20 - Alcohol dependence, uncomplicated, I10 - Essential (primary) hypertension, J44.9 - Chronic obstructive pulmonary disease, unspecified, N32.81 - Overactive bladder, N39.41 - Urge incontinence, R79.89 - Other specified abnormal findings of blood chemistry, Z59.00 - Homelessness unspecified LDL Cholesterol Direct Today E78.9 - Disorder of lipoprotein metabolism, unspecified, F10.20 - Alcohol dependence, uncomplicated, I10 - Essential (primary) hypertension, J44.9 - Chronic obstructive pulmonary disease, unspecified, N32.81 - Overactive bladder, N39.41 - Urge incontinence, R79.89 - Other specified abnormal findings of blood chemistry, Z59.00 - Homelessness unspecified Medications: Refilled albuterol sulfate 90 mcg/actuation (ProAir HFA) 1 inh inhalation QID PRN 18 grams 3RF shortness of breath or wheezing 30 days J44.9 - Chronic obstructive pulmonary disease, unspecified Coding Level of Care Code Est Pt Level 4 (64668) Diagnoses LFT elevation R79.89 Homeless Z59.00 Overactive bladder N32.81 Alcoholism F10.20 COPD, severe J44.9 Lipid disorder E78.9 Primary hypertension I10 Hypertension type: primary hypertension Urge incontinence of urine N39.41 Uses roller walker Z99.89 Risk for falls Z91.81 Additional Codes HEMANT-7 Assessment Billing - HEMANT-7 Assessment Tool: HEMANT-7 Assessment [id number] ([id number])
== END 2023-01-21 12:16 | disposition home or self-care (01) ==
PROVIDERS: PCP Internal Medicine; Visit Provider Internal Medicine
DX: J44.9 Chronic obstructive pulmonary disease, unspecified (principal); F10.20 Alcohol dependence, uncomplicated; R79.89 Other specified abnormal findings of blood chemistry; Z59.00 Homelessness unspecified; N32.81 Overactive bladder; E78.9 Disorder of lipoprotein metabolism, unspecified; I10 Essential (primary) hypertension; N39.41 Urge incontinence; Z99.89 Dependence on other enabling machines and devices; Z91.81 History of falling
CPT/HCPCS: 99214

== ENCOUNTER 2023-01-21 09:53 | Outpatient (REF) | payer MEDICARE, MEDICAID, SELFPAY ==
[2023-01-21 13:17] LABS: MANUAL DIFF FLAG NO
[2023-01-21 13:35] LABS: Basophils Absolute Auto 0.1 X10*3/uL (0.0-0.2); Basophils Percent Auto 0.6 % (0-2); Eosinophils Absolute Auto 0.3 X10*3/uL (0.0-0.4); Eosinophils Percent Auto 1.9 % (0-4); Hematocrit 44.4 % (37.0-47.0); Hemoglobin 13.8 g/dl (12.0-16.0); Imm Gran Abs Auto 0.12 X10*3/uL (0.00-0.03); Imm Gran Pct Auto 0.8 % (0.0-0.4); Lymphocytes Absolute Auto 1.8 X10*3/uL (1.2-4.9); Lymphocytes Percent Auto 12.5 % (20-40); Mean Corpuscular HGB Conc 31.1 g/dl (31.0-35.0); Mean Corpuscular Hemoglobin 27.9 pg (27.0-33.0); Mean Corpuscular Volume 89.9 fL (80.0-98.0); Mean Platelet Volume 10.6 fL (9.4-12.3); Monocytes Absolute Auto 0.6 X10*3/uL (0.1-1.2); Monocytes Percent Auto 4.1 % (2-11); Neutrophils Absolute Auto 11.6 x10*3/uL (2.0-8.3); Neutrophils Percent Auto 80.1 % (45-73); Platelet Count 403 X10*3/uL (160-400); Red Blood Count 4.94 X10*6/uL (4.20-5.50); Red Cell Distribution Width 14.1 % (11.0-16.0); White Blood Count 14.5 X10*3/uL (4.8-10.8)
[2023-01-21 14:24] LABS: Alanine Aminotransferase 25 U/L (0-31); Albumin Level 4.1 g/dL (3.5-5.0); Alkaline Phosphatase 163 U/L (39-117); Anion Gap 13 (12-20); Aspartate Amino Transferase 28 U/L (5-31); Bilirubin Total 0.6 mg/dL (0.0-1.0); Blood Urea Nitrogen 12 mg/dL (9-16); Calcium 9.8 mg/dL (8.4-10.2); Carbon Dioxide 26 mmol/L (22-29); Chloride 102 mmol/L (96-108); Estimated Glomerular Filt Rate 56; Glucose Random 115 mg/dL (60-115); Potassium 4.4 mmol/L (3.3-5.1); Sodium 137 mmol/L (135-145); Total Protein 7.5 g/dL (6.5-8.0)
[2023-01-27 05:59] LABS: LDL Cholesterol Direct 96 mg/dL (<100)
== END 2023-01-21 09:54 | disposition home or self-care (01) ==
LOC: HO.HMGCLDS 09:53
PROVIDERS: PCP Internal Medicine; Visit Provider Internal Medicine
DX: R79.89 Other specified abnormal findings of blood chemistry (principal); N32.81 Overactive bladder; F10.20 Alcohol dependence, uncomplicated; J44.9 Chronic obstructive pulmonary disease, unspecified; E78.9 Disorder of lipoprotein metabolism, unspecified; I10 Essential (primary) hypertension; N39.41 Urge incontinence; Z59.00 Homelessness unspecified
CPT/HCPCS: 36415; 80053; 83721; 85025

== ENCOUNTER 2023-03-25 09:18 | Outpatient (AMB) | payer MEDICARE, MEDICAID, SELFPAY ==
[2023-03-25 09:27] VITALS: BP 118/68; PULSE 116; O2SAT 94; BMI 29.7
--- NOTE | 2023-03-25 09:27 | MHC.OFFVIS ---
Intake Vital Signs 03/25/23 09:27 Height 5 ft 4 in Weight 173 lb 1.006 oz BMI 29.7 BP 118/68 Blood Pressure Location Lt brachial Position Sitting Pulse 116 H Pulse Source Pulse Oximeter Pulse Oximetry (%) 94 Oxygen Delivery Method Room Air Intake Visit Reasons: copd Intake Note: pt is here for follow up and states when she lies down at night, she feels like she wakes up and is short of breath, also when walking from room to room, very short of breath. The lying down short of breath only started about 3 weeks ago. little cough, no mucous, she does have runny nose all the time. pt has increase stress. Screen Printer Helper Required: No Allergies No Known Allergies Allergy (Verified 03/25/23 09:52) Medication List - Last Reconciled 03/25/23 by Demarco Hilton MD albuterol sulfate 90 mcg/actuation (ProAir HFA) 1 inh inhalation QID PRN 30 days amlodipine 10 mg PO DAILY ferrous sulfate 324 mg PO BID 90 days ipratropium-albuterol 0.5 mg-3 mg(2.5 mg base)/3 mL 3 mL inhalation Q6H losartan 50 mg PO DAILY omeprazole 40 mg PO DAILY prednisone 5 mg PO Q OTHER DAY simvastatin 40 mg PO DAILY 90 days Do you need a note to return to daycare/school/sports/work: No HPI copd HPI Details THIS 83 YEARS OLD VERY PLEASANT FEMALE WITH ADVANCED CHRONIC OBSTRUCTIVE PULMONARY DISEASE HE IS COMES AFTER 6 MONTHS FOR FOLLOW-UP. SHE HAS HAD NO ACUTE RESPIRATORY INFECTION OR EXACERBATION. OF COPD IN THE LAST 6 MONTHS HOWEVER HER SHORTNESS OF BREATH ON MINIMAL EXERTION IS GETTING SOMEWHAT WORSE. SHE ALSO WAKES UP AT NIGHT WITH SHORTNESS OF BREATH, ESPECIALLY IF SHE HAS TO GET OUT OF THE BED AND GO TO THE BATHROOM. HER SHORTNESS OF BREATH IS BROUGHT ON BY SOME STRESSFUL SITUATION AT HOME WELL. COUNT INCLUDES THE [facility] Medical History Dyspnea on exertion Influenza vaccination declined COVID-19 vaccination declined Frequency of micturition Tachycardia Ex-smoker Polyuria Chronic GERD Lipid disorder COPD, severe Hypertension Surgical History Hx of cataract extraction Family History Father HTN (hypertension) Mother No problems noted. Brother No problems noted. Son No problems noted. Son No problems noted. Daughter No problems noted. Daughter No problems noted. Social History Housing: House Alcohol intake: current Alcohol intake frequency: a few times a week Patient Tobacco Use Status: Former Tobacco user Quit Date: 2013 Tobacco use type: Cigarette Years Smoked: 60 years e-Cigarette/Vaping Use: Never Used Second Hand Smoke Exposure: No service: No Current occupational status: retired Cognitive needs: No Hearing needs: No Vision needs: Yes Review of Systems Const All systems reviewed & are unremarkable except as noted in HPI and below Eyes Reports no additional complaints ENT Reports no additional complaints Card Denies chest pain, Denies irregular heart rhythm, Denies leg edema and Reports dyspnea on exertion Resp Reports as per HPI and Reports dyspnea on exertion GI Reports heartburn (Being treated with omeprazole) Reports no additional complaints Musc Reports back pain (Mild) Skin/Breast Reports system reviewed and no additional complaints, except as documented Neuro Reports no additional complaints Psych Reports no additional complaints Physical Exam Vital Signs: Last Vital Signs Pulse 116 H 03/25/23 09:27 BP 118/68 03/25/23 09:27 Pulse Ox 94 03/25/23 09:27 Oxygen Delivery Method Room Air 03/25/23 09:27 BMI result Body Mass Index 29.7 Const Other: Complexion is somewhat pale. General: comfortable, no acute distress, alert and awake Orientation/consciousness: patient oriented x3 HEENT Head: Yes normal to inspection General nose exam: No nasal polyps present and No nasal discharge present Face and sinus: Yes sinuses nontender Mouth: oropharynx normal Throat: Yes posterior oropharynx normal Eyes General: appearance normal, both eyes and all related structures Neck Neck: Yes normal visual inspection, Yes no lymphadenopathy, Yes trachea midline and Yes no JVD Thyroid: Thyroid normal Chest Chest palpation & inspection: normal inspection of the chest, normal palpation of entire chest wall and no tenderness Resp Other: Percussion note hyper resonant, breath sounds are distant with prolonged expiratory phase. No wheezes rhonchi or Creps are heard today . Cardio Palpation: normal PMI Rate: regular rate Rhythm: regular rhythm Heart sounds: no gallops and no murmurs GI Palpation (GI): Soft to palpation, nontender, No hepatosplenomegaly present and no masses Auscultation: normal bowel sounds Back/Spine/Pelvis Thoracic/Lumbar Spine: thoracic and lumbar spine normal to inspection and thoraco-lumbar ROM limited Skin General skin exam: no rashes or lesions noted Neuro General: patient oriented x3 and no focal motor deficits Cranial nerves: Yes CN's II-XII intact bilaterally Extrem General: Yes normal to inspection, Yes no clubbing, cyanosis or edema and Yes no calf tenderness Psych Appearance: grossly normal and well kempt Speech and movement: Normal speech and movement present Office Procedures 6 Minute Walk Time:: 09:55 SPO2 % at rest: 93 Pulse at rest: 97 SPO2 % during excercise: 94 Pulse during excercise: 125 SPO2 % after excercise: 94 Pulse after excercise: 116 Distance in yards walked: 120 Shirley Score: 4 Performance Observations:: Pebbles walked on level ground without assistance, she walked on room air for the entire walk maintaining her SPO2 94-95%. HR up to 125 MD aware. HR recovered with rest. no supplemental O2 needed 56312 - 6 Minute Walk Results Reviewed Results Reviewed: SPIROMETRY ON03/12/22 HAD SHOWN ,VERY SEVERE OBSTRUCTIVE DISORDER 6 MINUTES WALK , NO SIGNIFICANT DROP IN O2 SAT . TACHYCARDIA WAS NOTED Assessment & Plan Assessment & Plan (1) COPD, severe: Comment: SHE HAS RATHER SEVERE CHRONIC OBSTRUCTIVE PULMONARY DISEASE, WITH PARTIAL REVERSIBILITY INDICATING MORE LIKE ASTHMA/COPD OVERLAP SYNDROME. SHE IS NOT PRONE TO HAVE FREQUENT EXACERBATIONS. SHE IS DOING FAIRLY WELL ON HER CURRENT MEDICAL REGIMEN. EXCEPT THAT HER DYSPNEA ON EXERTION IS GETTING WORSE, AND SHE DOES WAKE UP WITH SHORTNESS OF BREATH AT NIGHT. Code(s): J44.9 - Chronic obstructive pulmonary disease, unspecified Plan: [place] : BREO 200-25 ONE INH DAILY IS ADDED . Continue PREDNISONE 5 MG ON ALTERNATE DAYS. USE PROAIR 2 PUFFS Q 6 HOURS ONLY P.R.N DUO NEB UDs Q 6 HRS W/A ( may use up to 3 times a day ) (2) Ex-smoker: Comment: SHE QUIT 4 YEARS AGO AFTER SMOKING 1 PACK A DAY FOR 60 YEARS. HAS FELT MUCH BETTER SINCE SHE QUIT Code(s): Z87.891 - Personal history of nicotine dependence Plan: ABOVE (3) Dyspnea on exertion: Comment: EXPLAINED TO HER THAT SHE HAS VERY SEVERE CHRONIC OBSTRUCTIVE PULMONARY DISEASE. AND POSSIBLE HEART DISEASE. HER PREVIOUSLY NOTED ANEMIA HAS RESOLVED. Code(s): R06.09 - Other forms of dyspnea Plan: ON MINIMAL WALKING HER HEART RATE GOES OVER 100 PER MINUTE THIS MAY BE JUST BECAUSE OF HER ADVANCED COPD. HOWEVER SHE SHOULD SEE CARDIOLOGY SERVICE, SHE HAS NOT GONE BACK FOR FOLLOW-UP FOR ABOUT 2 YEARS. Orders: Orders AMB 6 minute walk Today R06.09 - Other forms of dyspnea Coding Level of Care Code Est Pt Level 4 (45361) Diagnoses COPD, severe J44.9 Ex-smoker Z87.891 Dyspnea on exertion R06.09 CPT Codes Coding ([id number])
[2023-03-25 10:13] VITALS: PULSE 97; O2SAT 93
== END 2023-03-25 10:17 | disposition home or self-care (01) ==
PROVIDERS: PCP Internal Medicine; Visit Provider Internal Medicine
DX: J44.9 Chronic obstructive pulmonary disease, unspecified (principal); Z87.891 Personal history of nicotine dependence; R06.09 Other forms of dyspnea
CPT/HCPCS: 94618; 99214

== ENCOUNTER → 2023-03-25 09:18 | Outpatient (BNVA) | payer MEDICARE, MEDICAID, SELFPAY | PROVIDERS: PCP Internal Medicine; Visit Provider Internal Medicine | DX: J44.9 Chronic obstructive pulmonary disease, unspecified (principal); R06.09 Other forms of dyspnea; Z87.891 Personal history of nicotine dependence | CPT/HCPCS: 94618; 99212 ==

== ENCOUNTER 2023-03-26 08:37 | Outpatient (AMB) | payer MEDICARE, MEDICAID, SELFPAY ==
--- NOTE | 2023-03-26 11:18 | A.OFFPC_ITS ---
Vital Signs 03/26/23 11:19 Height 5 ft 4 in Intake Visit Reasons: Disabled Parking Forms~[phone] Allergies No Known Allergies Allergy (Verified 03/26/23 11:19) Medication List - Last Reconciled 03/26/23 by Flavio Bundy MD albuterol sulfate 90 mcg/actuation (ProAir HFA) 1 inh inhalation QID PRN 30 days amlodipine 10 mg PO DAILY ferrous sulfate 324 mg PO BID 90 days ipratropium-albuterol 0.5 mg-3 mg(2.5 mg base)/3 mL 3 mL inhalation Q6H losartan 50 mg PO DAILY omeprazole 40 mg PO DAILY prednisone 5 mg PO Q OTHER DAY simvastatin 40 mg PO DAILY 90 days Tobacco use date assessed: 03/26/23 Fall risk assessment: No Falls in past year Last assessed Fall Risk: 03/26/23 Dental Screening Dental Screen Date: 03/26/23 Did you have a dental visit in the last 12 months?: No Did you have a dental problem in the last 6 months where you did not have access to dental care?: No Was dental information given to patient?: No HPI Disabled Parking Forms~[phone] HPI Details Patient is 83-year-old female this is a tele medicine visit Originally it was booked as patient requested head kneecap placard form filled, however she tells me that she had appointment with Dr. Hilton for her oxygen dependent COPD And her form was filled Patient continued to be tachycardic, patient says that she has seen tobacco sieve operator awhile ago but did not go in for follow-up Dr. Hilton feels that patient need to be seen by a tobacco sieve operator again as her dyspnea is not just because of severe COPD, it seems as cardiac status is contributing in her dyspnea symptom Cardiology referral in [facility] Medical History Dyspnea on exertion Influenza vaccination declined COVID-19 vaccination declined Frequency of micturition Tachycardia Ex-smoker Polyuria Chronic GERD Lipid disorder COPD, severe Hypertension Surgical History Hx of cataract extraction Family History Father HTN (hypertension) Mother No problems noted. Brother No problems noted. Son No problems noted. Son No problems noted. Daughter No problems noted. Daughter No problems noted. Social History Housing: House Alcohol intake: current Alcohol intake frequency: a few times a week Patient Tobacco Use Status: Former Tobacco user Quit Date: 2013 Tobacco use type: Cigarette Years Smoked: 60 years e-Cigarette/Vaping Use: Never Used Second Hand Smoke Exposure: No service: No Current occupational status: retired Cognitive needs: No Hearing needs: No Vision needs: Yes Questionnaire Thrive Questionnaire Date Thrive assessed: 03/16/21 AUDIT C Alcohol Use Questionnaire (AUDIT-C) 1. How often do you have a drink containing alcohol?: Never 3. How often do you have six or more drinks on one occasion?: Never Total Score: 0 Score Reviewed/Action Taken: Yes HEMANT-7 AMB Questionnaire HEMANT-7 Date HEMANT - 7 assessed: 01/21/23 Source: Developed by Drs. Bradford Thakkar, Jen Franz, Jan Miranda and colleagues, with an educational andrez from [employer]. Review of Systems Const Denies chills and Denies fever(s) ENT Denies epistaxis and Denies nasal discharge Card Denies chest pain Resp Denies chest congestion and Denies hemoptysis GI Denies diarrhea and Denies nausea Skin/Breast Denies rash Neuro Reports no additional complaints Psych Reports no additional complaints Endo Reports no additional complaints Physical exam (Primary Care) Tobacco/Smoking Status: Tobacco use Status Tobacco use date assessed 03/26/23 03/26/23 11:19 Patient Tobacco Use Status Former Tobacco user 03/26/23 11:19 Tobacco use type Cigarette 03/26/23 11:19 e-Cigarette/Vaping Use Never Used 03/26/23 11:19 Thrive Assessment: Date of Thrive Assessment Date Thrive assessed 03/16/21 03/26/23 11:19 Telehealth Telehealth Location of provider rendering services: practice address Location of patient: address on file Patient Identification confirmed using: Name, : Yes Telehealth method: voice only Patient verbally consented to treatment: Yes Patient verbally consented to billing insurance company: Yes Patient informed of any privacy concerns related to visit: Yes Minutes spent on Phone/Video with Pt.: 12 Assessment and Plan Assessment & Plan (1) Breathlessness on exertion: Code(s): R06.81 - Apnea, not elsewhere classified (2) Tachycardia: Code(s): R00.0 - Tachycardia, unspecified Plan Patient is 83-year-old female this is a tele medicine visit Originally it was booked as patient requested head kneecap placard form filled, however she tells me that she had appointment with Dr. Hilton for her oxygen dependent COPD And her form was filled Patient continued to be tachycardic, patient says that she has seen tobacco sieve operator awhile ago but did not go in for follow-up Dr. Hilton feels that patient need to be seen by a tobacco sieve operator again as her dyspnea is not just because of severe COPD, it seems as cardiac status is contributing in her dyspnea symptom Cardiology referral in place Orders: Referrals Cardiology Referral R00.0 - Tachycardia, unspecified, R06.81 - Apnea, not elsewhere classified Coding Level of Care Code Tele Est Pt Level 3 (49249) Diagnoses Breathlessness on exertion R06.81 Tachycardia R00.0
== END 2023-03-26 13:27 | disposition home or self-care (01) ==
LOC: HO.HMGC 08:37
PROVIDERS: PCP Internal Medicine; Visit Provider Internal Medicine
DX: R06.81 Apnea, not elsewhere classified (principal); R00.0 Tachycardia, unspecified
CPT/HCPCS: 99442

== ENCOUNTER 2023-05-21 08:12 | Outpatient (AMB) | payer MEDICARE, MEDICAID, SELFPAY ==
[2023-05-21 08:28] VITALS: BP 140/72; PULSE 109; BMI 29.7
--- NOTE | 2023-05-21 08:28 | MHC.OFFVIS ---
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 Accompanied by: Self / Same As Patient Allergies No Known Allergies Allergy (Verified 03/26/23 11:19) Medication List - Last Reconciled 05/21/23 by Carlos Ramírez MD albuterol sulfate 90 mcg/actuation (ProAir HFA) 1 inh inhalation QID PRN 30 days amlodipine 10 mg PO DAILY Breo Ellipta 200-25 mcg/dose (fluticasone furoate-vilanterol) 1 inh inhalation DAILY 30 days NS ferrous sulfate 324 mg PO BID 90 days ipratropium-albuterol 0.5 mg-3 mg(2.5 mg base)/3 mL 3 mL inhalation Q6H losartan 50 mg PO DAILY omeprazole 40 mg PO DAILY prednisone 5 mg PO Q OTHER DAY simvastatin 40 mg PO DAILY 90 days HPI HPI Comments History of Present Illness Details Pebbles is here for consultation regarding shortness of breath and tachycardia. History of severe COPD. She states she gets short of breath even with minimal exertion. Sometimes while just resting. History of smoking in the past but nothing recently according to her. Otherwise, from cardiac standpoint no known coronary disease myocardial infarction. She does not have any anginal-type complaints. She also runs fast heart rates, probably because of the underlying COPD but does not have any overt palpitations. [facility] Medical History Dyspnea on exertion Influenza vaccination declined COVID-19 vaccination declined Frequency of micturition Tachycardia Ex-smoker Polyuria Chronic GERD Lipid disorder COPD, severe Hypertension Surgical History Hx of cataract extraction Family History Father HTN (hypertension) Mother No problems noted. Brother No problems noted. Son No problems noted. Son No problems noted. Daughter No problems noted. Daughter No problems noted. Social History Housing: House Alcohol intake: current Alcohol intake frequency: a few times a week Patient Tobacco Use Status: Former Tobacco user Quit Date: 2013 Tobacco use type: Cigarette Years Smoked: 60 years e-Cigarette/Vaping Use: Never Used Second Hand Smoke Exposure: No service: No Current occupational status: retired Cognitive needs: No Hearing needs: No Vision needs: Yes Review of Systems Const Denies chills, Denies daytime sleepiness, Denies fatigue, Denies fever(s), Denies frequent falls, Denies night sweats, Denies snoring, Denies weakness, Denies weight gain and Denies weight loss Eyes Denies loss of vision ENT Denies dizziness and Denies hearing loss Card Denies chest pain, Denies chest pain with activity, Denies syncope, Denies rapid heart rate, Denies edema, Denies claudication, Denies leg edema, Denies lightheadedness, Denies palpitations and Denies orthopnea Resp Denies cough, Denies excessive phlegm production, Denies snoring and Denies wheezing GI Denies abdominal pain, Denies hematochezia, Denies change in bowel habits, Denies change in stool character, Denies heartburn, Denies nausea and Denies vomiting Denies hematuria, Denies urinary frequency and Denies dysuria Musc Denies arthralgias, Denies muscle weakness, Denies numbness and Denies tingling Skin/Breast Denies nail changes and Denies rash Neuro Denies Abnormal speech present, Denies dizziness, Denies syncope, Denies frequent falls, Denies loss of vision, Denies memory loss, Denies numbness, Denies tingling and Denies weakness Psych Denies depression and Denies memory loss Endo Denies fatigue and Denies palpitations Aller/Immun Denies wheezing Physical Exam Vital Signs: Last Vital Signs Pulse 109 H 05/21/23 08:28 BP 140/72 H 05/21/23 08:28 BMI result Body Mass Index 29.7 Const General: comfortable and no acute distress Orientation/consciousness: patient oriented x3 HEENT Other: Unremarkable Head: Yes normal to inspection Neck Neck: Yes normal visual inspection Chest Chest palpation & inspection: normal inspection of the chest Resp Auscultation: clear to auscultation bilaterally Cardio Palpation: normal PMI Heart sounds: S1 normal heart sound present, S2 normal heart sound present, no gallops, no murmurs and no rubs GI Palpation (GI): Soft to palpation Back/Spine/Pelvis Other: unremarkable Skin General skin exam: no rashes or lesions noted Neuro General: patient oriented x3 Speech: No Abnormal speech present Extrem General: Yes normal to inspection Psych Mental Status: mental status grossly normal Office Procedures EKG Details: EKG with sinus tachycardia 109/Min; right bundle-branch block pattern; premature supraventricular ectopy. [id number], Complete Assessment & Plan Assessment & Plan (1) Breathlessness on exertion: Code(s): R06.81 - Apnea, not elsewhere classified (2) COPD, severe: Code(s): J44.9 - Chronic obstructive pulmonary disease, unspecified (3) Tachycardia: Code(s): R00.0 - Tachycardia, unspecified Plan Shortness of breath probably just from COPD itself. Tachycardia could also be a compensated response from her severe COPD. We will get an echocardiogram and Holter for further evaluation. Follow-up after the above. Orders: Orders CA echo transthoracic complete Today R06.81 - Apnea, not elsewhere classified ECG 3 day holter monitor Today R00.0 - Tachycardia, unspecified Coding Level of Care Code New Pt Level 3 (75975) Diagnoses Breathlessness on exertion R06.81 COPD, severe J44.9 Tachycardia R00.0 CPT Codes EKG - CPT: 81412-[id number], Complete ([id number])
== END 2023-05-21 08:49 | disposition home or self-care (01) ==
PROVIDERS: PCP Internal Medicine; Visit Provider Internal Medicine
DX: R06.81 Apnea, not elsewhere classified (principal); J44.9 Chronic obstructive pulmonary disease, unspecified; R00.0 Tachycardia, unspecified
CPT/HCPCS: 93010; 99203

== ENCOUNTER → 2023-05-21 08:12 | Outpatient (BNVA) | payer MEDICARE, MEDICAID, SELFPAY | PROVIDERS: PCP Internal Medicine; Visit Provider Internal Medicine | DX: R06.81 Apnea, not elsewhere classified (principal); R00.0 Tachycardia, unspecified; J44.9 Chronic obstructive pulmonary disease, unspecified | CPT/HCPCS: 93005; 99202 ==

== ENCOUNTER 2023-06-03 09:42 | Outpatient (AMB) | payer MEDICARE, MEDICAID, SELFPAY ==
[2023-06-03 09:44] VITALS: BP 130/70; PULSE 115; O2SAT 97; BMI 29.7
--- NOTE | 2023-06-03 09:44 | A.OFFPC_ITS ---
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 Allergies No Known Allergies Allergy (Verified 06/03/23 09:46) Medication List - Last Reconciled 06/03/23 by Flavio Bundy MD albuterol sulfate 90 mcg/actuation (ProAir HFA) 1 inh inhalation QID PRN 30 days amlodipine 10 mg PO DAILY Breo Ellipta 200-25 mcg/dose (fluticasone furoate-vilanterol) 1 inh inhalation DAILY 30 days NS ferrous sulfate 324 mg PO BID 90 days ipratropium-albuterol 0.5 mg-3 mg(2.5 mg base)/3 mL 3 mL inhalation Q6H losartan 50 mg PO DAILY omeprazole 40 mg PO DAILY prednisone 5 mg PO Q OTHER DAY simvastatin 40 mg PO DAILY 90 days Tobacco use date assessed: 03/26/23 Fall risk assessment: No Falls in past year Last assessed Fall Risk: 06/03/23 Dental Screening Dental Screen Date: 03/26/23 HPI 4 Month F/U HPI Details Patient is 83-year-old female came in today for her regular follow-up appointment Hypertension: Patient is taking amlodipine 10 mg along with losartan 50 mg, her blood pressure is stable Continue simvastatin 40 mg for lipid control Chronic GERD: Stable with omeprazole 40 mg Severe COPD managed by Dr. Hilton , she is not on oxygen, she was started on Breo inhaler which is helping Patient was evaluated by medicine technologist earlier this month, note reviewed, echo and Holter monitor was ordered for further evaluate the problem To see if her shortness a breath getting worse is contributed by cardiac status as well She does have a nebulizer machine which is helping her she is using it 3 times a day LFT alkaline phosphatase is elevated however stable Urine incontinence continue but it is not that bad, patient says that she is not using any pads or diaper at this time. But she does have some. Continued to be homeless and is residing in a single room Labs to be done today Patient have follow-up appointment in October Follow-up appointment with Pulmonary in shown and then Cardiology in August [facility] Medical History Dyspnea on exertion Influenza vaccination declined COVID-19 vaccination declined Frequency of micturition Tachycardia Ex-smoker Polyuria Chronic GERD Lipid disorder COPD, severe Hypertension Surgical History Hx of cataract extraction Family History Father HTN (hypertension) Mother No problems noted. Brother No problems noted. Son No problems noted. Son No problems noted. Daughter No problems noted. Daughter No problems noted. Social History Housing: House Alcohol intake: current Alcohol intake frequency: a few times a week Patient Tobacco Use Status: Former Tobacco user Quit Date: 2013 Tobacco use type: Cigarette Years Smoked: 60 years e-Cigarette/Vaping Use: Never Used Second Hand Smoke Exposure: No service: No Current occupational status: retired Cognitive needs: No Hearing needs: No Vision needs: Yes Questionnaire PHQ-9 Over the last 2 weeks, how often have you been bothered by any of the following problems? Depression Screening Interpretation: Negative Depression Screening Done: Yes Source: Developed by Drs. Bradford Thakkar, Jan Connell and colleagues, with an educational andrez from [employer]. Thrive Questionnaire Date Thrive assessed: 03/16/21 HEMANT-7 AMB Questionnaire HEMANT-7 Date HEMANT - 7 assessed: 01/21/23 Source: Developed by Drs. Bradford Thakkar, Jan Connell and colleagues, with an educational andrez from [employer]. Review of Systems Const Denies chills and Denies fever(s) ENT Denies epistaxis and Denies nasal discharge Card Denies chest pain Resp Denies chest congestion and Denies hemoptysis GI Denies diarrhea and Denies nausea Skin/Breast Denies rash Neuro Reports no additional complaints Psych Reports no additional complaints Endo Reports no additional complaints Physical exam (Primary Care) Vital Signs: Last Vital Signs Pulse 115 H 06/03/23 09:44 BP 130/70 06/03/23 09:44 Pulse Ox 97 06/03/23 09:44 Oxygen Delivery Method Room Air 06/03/23 09:44 BMI result Body Mass Index 29.7 Tobacco/Smoking Status: Tobacco use Status Tobacco use date assessed 03/26/23 06/03/23 09:47 Patient Tobacco Use Status Former Tobacco user 06/03/23 09:47 Tobacco use type Cigarette 06/03/23 09:47 e-Cigarette/Vaping Use Never Used 06/03/23 09:47 Depression Screening Interpretation: Negative Thrive Assessment: Date of Thrive Assessment Date Thrive assessed 03/16/21 06/03/23 09:47 Const General: cooperative, comfortable and no acute distress Orientation/consciousness: patient oriented x3 HENMT Head: Yes normocephalic Eyes General: appearance normal, both eyes and all related structures Neck Neck: Yes supple Resp Other: Clear to auscultation Effort & Inspection: no cough and no stridor Cardio Rhythm: regular rhythm Heart sounds: S1 normal heart sound present and S2 normal heart sound present Skin General skin exam: turgor normal Neuro Other: Uses ambulatory aid General: patient oriented x3, tone normal and moves all extremities Extrem Right lower extremity: no edema Left lower extremity: no edema Assessment and Plan Assessment & Plan (1) Hypertension: Code(s): I10 - Essential (primary) hypertension Qualifiers: Hypertension type: primary hypertension Qualified Code(s): I10 - Essential (primary) hypertension (2) LFT elevation: Code(s): R79.89 - Other specified abnormal findings of blood chemistry (3) Homeless: Code(s): Z59.00 - Homelessness unspecified (4) Overactive bladder: Code(s): N32.81 - Overactive bladder (5) COPD, severe: Code(s): J44.9 - Chronic obstructive pulmonary disease, unspecified (6) Lipid disorder: Code(s): E78.9 - Disorder of lipoprotein metabolism, unspecified (7) Urge incontinence of urine: Code(s): N39.41 - Urge incontinence (8) Uses roller walker: Code(s): Z99.89 - Dependence on other enabling machines and devices (9) Risk for falls: Code(s): Z91.81 - History of falling Plan Patient is 83-year-old female came in today for her regular follow-up appointment Hypertension: Patient is taking amlodipine 10 mg along with losartan 50 mg, her blood pressure is stable Continue simvastatin 40 mg for lipid control Chronic GERD: Stable with omeprazole 40 mg Severe COPD managed by Dr. Hilton , she is not on oxygen, she was started on Breo inhaler which is helping Patient was evaluated by medicine technologist earlier this month, note reviewed, echo and Holter monitor was ordered for further evaluate the problem To see if her shortness a breath getting worse is contributed by cardiac status as well She does have a nebulizer machine which is helping her she is using it 3 times a day LFT alkaline phosphatase is elevated however stable Urine incontinence continue but it is not that bad, patient says that she is not using any pads or diaper at this time. But she does have some. Continued to be homeless and is residing in a single room Labs to be done today Patient have follow-up appointment in October Follow-up appointment with Pulmonary in and then Cardiology in August Orders: Orders Complete Blood Count Auto Diff Today E78.9 - Disorder of lipoprotein metabolism, unspecified, I10 - Essential (primary) hypertension, J44.9 - Chronic obstructive pulmonary disease, unspecified, N39.41 - Urge incontinence, R79.89 - Other specified abnormal findings of blood chemistry TSH reflex Free T4 Today E78.9 - Disorder of lipoprotein metabolism, unspecified, I10 - Essential (primary) hypertension, J44.9 - Chronic obstructive pulmonary disease, unspecified, N39.41 - Urge incontinence, R79.89 - Other specified abnormal findings of blood chemistry Comprehensive Met. Panel Today E78.9 - Disorder of lipoprotein metabolism, unspecified, I10 - Essential (primary) hypertension, J44.9 - Chronic obstructive pulmonary disease, unspecified, N39.41 - Urge incontinence, R79.89 - Other specified abnormal findings of blood chemistry LDL Cholesterol Direct Today E78.9 - Disorder of lipoprotein metabolism, unspecified, I10 - Essential (primary) hypertension, J44.9 - Chronic obstructive pulmonary disease, unspecified, N39.41 - Urge incontinence, R79.89 - Other specified abnormal findings of blood chemistry Coding Level of Care Code Est Pt Level 4 (95080) Diagnoses Primary hypertension I10 Hypertension type: primary hypertension LFT elevation R79.89 Homeless Z59.00 Overactive bladder N32.81 COPD, severe J44.9 Lipid disorder E78.9 Urge incontinence of urine N39.41 Uses roller walker Z99.89 Risk for falls Z91.81
== END 2023-06-03 11:01 | disposition home or self-care (01) ==
PROVIDERS: PCP Internal Medicine; Visit Provider Internal Medicine
DX: I10 Essential (primary) hypertension (principal); J44.9 Chronic obstructive pulmonary disease, unspecified; R79.89 Other specified abnormal findings of blood chemistry; Z59.00 Homelessness unspecified; N32.81 Overactive bladder; E78.9 Disorder of lipoprotein metabolism, unspecified; N39.41 Urge incontinence; Z99.89 Dependence on other enabling machines and devices; Z91.81 History of falling
CPT/HCPCS: 99214

== ENCOUNTER 2023-06-03 10:02 | Outpatient (REF) | payer MEDICARE, MEDICAID, SELFPAY ==
[2023-06-03 13:44] LABS: MANUAL DIFF FLAG NO
[2023-06-03 13:56] LABS: Basophils Absolute Auto 0.1 X10*3/uL (0.0-0.2); Basophils Percent Auto 0.8 % (0-2); Eosinophils Absolute Auto 0.2 X10*3/uL (0.0-0.4); Eosinophils Percent Auto 2.1 % (0-4); Hematocrit 44.7 % (37.0-47.0); Hemoglobin 14.2 g/dl (12.0-16.0); Imm Gran Abs Auto 0.13 X10*3/uL (0.00-0.03); Imm Gran Pct Auto 1.2 % (0.0-0.4); Lymphocytes Absolute Auto 2.8 X10*3/uL (1.2-4.9); Lymphocytes Percent Auto 26.5 % (20-40); Mean Corpuscular HGB Conc 31.8 g/dl (31.0-35.0); Mean Corpuscular Hemoglobin 27.7 pg (27.0-33.0); Mean Corpuscular Volume 87.3 fL (80.0-98.0); Mean Platelet Volume 10.9 fL (9.4-12.3); Monocytes Absolute Auto 0.9 X10*3/uL (0.1-1.2); Monocytes Percent Auto 8.8 % (2-11); Neutrophils Absolute Auto 6.4 x10*3/uL (2.0-8.3); Neutrophils Percent Auto 60.6 % (45-73); Platelet Count 434 X10*3/uL (160-400); Red Blood Count 5.12 X10*6/uL (4.20-5.50); Red Cell Distribution Width 13.9 % (11.0-16.0); White Blood Count 10.5 X10*3/uL (4.8-10.8)
[2023-06-03 16:36] LABS: Alanine Aminotransferase 14 U/L (0-31); Albumin Level 4.1 g/dL (3.5-5.0); Alkaline Phosphatase 141 U/L (39-117); Anion Gap 14 (12-20); Aspartate Amino Transferase 18 U/L (5-31); Bilirubin Total 0.4 mg/dL (0.0-1.0); Blood Urea Nitrogen 11 mg/dL (9-16); Calcium 9.7 mg/dL (8.4-10.2); Carbon Dioxide 25 mmol/L (22-29); Chloride 104 mmol/L (96-108); Estimated Glomerular Filt Rate > 60; Glucose Random 103 mg/dL (60-115); Potassium 4.1 mmol/L (3.3-5.1); Sodium 139 mmol/L (135-145); Total Protein 7.5 g/dL (6.5-8.0)
[2023-06-03 16:52] LABS: TSH reflex Free T4 0.95 uIU/mL (0.32-4.0)
[2023-06-05 01:38] LABS: LDL Cholesterol Direct 101 mg/dL (<100)
== END 2023-06-03 10:03 | disposition home or self-care (01) ==
LOC: HO.HMGCLDS 10:02
PROVIDERS: PCP Internal Medicine; Visit Provider Internal Medicine
DX: R79.89 Other specified abnormal findings of blood chemistry (principal); N39.41 Urge incontinence; E78.9 Disorder of lipoprotein metabolism, unspecified; I10 Essential (primary) hypertension; J44.9 Chronic obstructive pulmonary disease, unspecified
CPT/HCPCS: 36415; 80053; 83721; 84443; 85025

== ENCOUNTER → 2023-06-17 09:40 | Outpatient (REF) | payer MEDICARE, MEDICAID, SELFPAY ==
--- NOTE | 2023-06-17 09:45 | CA_ITS ---
Transthoracic Echocardiogram Patient (Last, First, Middle): Pebbles Lubin M Gender: Female Date of : 1940 Age: 83 Procedure Date: 06/17/2023 Procedure Type: Transthoracic Echocardiogram Location: OP Height: 162.56 cm Weight: 72.58 kg BSA: 1.78 m2 Heart Rate: 93 bpm BP: 120 / 60 mmHg Saw Straightener: YAHIR Referring MD: Carlos Ramírez MD Symptoms: R06.81 - Apnea, not elsewhere classified Study Quality: Fair ECG Rhythm: Sinus Conclusions: - The left ventricular systolic function is normal. The visually estimated ejection fraction is between 60-65%. - The basal inferior and basal inferolateral segments are hypokinetic. - No obvious valvular pathology seen on this study. Findings Left Ventricle Normal left ventricular cavity size. There is normal left ventricular wall thickness. The left ventricular systolic function is normal. The visually estimated ejection fraction is between 60-65%. There is no evidence of regional wall motion abnormalities. Evidence suggests grade I (mild) diastolic dysfunction. Wall Motion Rest Echo Findings The basal inferior and basal inferolateral segments are hypokinetic. Right Ventricle Normal right ventricular cavity size and systolic function. Atria Both atria are normal in size. Aortic Valve There is a normal trileaflet aortic valve. There is mild calcification of the aortic valve. There is no aortic valve stenosis. There is trace (trivial) aortic valve regurgitation. Mitral Valve The mitral valve appears normal. There is no mitral valve regurgitation. There is no mitral valve stenosis. Pulmonic Valve The pulmonic valve is likely normal. Tricuspid Valve There is trace tricuspid valve regurgitation. Tricuspid regurgitation envelope is inadequate for calculation of right ventricular systolic pressure. Great Vessels The asc aorta is normal in size. Venous The inferior vena cava is normal in size and collapses greater than 50% with inspiration. Pericardium/Pleural Prominent epicardial adipose tissue noted. There is no evidence of pericardial effusion. Recommendations, Care & Conclusions No obvious valvular pathology seen on this study. Measurements 2D Linear Measurements IVSd: 0.86 0.6-0.9/0.6-1.0 cm LVIDd: 4.62 3.9-5.3/4.2-5.9 cm LVIDd Index: 2.60 2.4-3.2/2.2-3.1 cm/m2 LVIDs: 2.85 2.0-3.6 cm LVPWd: 0.69 0.7-1.1 cm LA Diam: 3.20 2.7-3.8/3.0-4.0 cm LAIDs Index: 1.80 1.5-2.3 cm/m2 LV Mass: 141.13 67-162/88-224 g LV Mass Index: 79.29 43-95/49-115 g/m2 LVOT Diam: 1.90 3.0+(-)1.3 cm 2D Systolic Function EF 4C: 54.40 >55% EF 2C: 59.40 >55% EF BiP: 57.40 >55% Mitral Valve MV Pk E: 0.62 MV PK A: 0.99 MV Decel Time: 269.00 E/A: 0.60 E'Lateral: 8.70 E'Medial: 5.00 E/E' Med: 12.50 E/E' Lat: 7.20 PHT: 79.00 MVA PHT: 2.78 Decel [place]: 2.31 Aortic Valve AoV Pk Christian: 1.80 AoV Mn Christian: 1.15 AoV VTI: 0.32 AoV Pk Grad: 13.00 Aov Mn Grad: 6.00 ERNESTINE Cont.VTI: 2.01 LVOT LVOT Pk Christian: 1.22 LVOT Mn Christian: 0.88 LVOT VTI: 0.22 LVOT Pk Grad: 6.00 LVOT Mn Grad: 3.00 LVOT Diam: 1.90 LVOT Area: 2.84 Diastolic Function MV Pk E: 0.62 MV Pk A: 0.99 E/A: 0.60 E'Medial: 5.00 E/E' Med: 12.50 E' Laterial: 8.70 E/E' Lat: 7.20 Right Ventricle TAPSE (mm): 19.50 TVS' Christian: 11.00 Tricuspid Valve RA Press: 3.00 Great Vessels Aorta Sinus of Valsalva: 3.20 2.0-3.5 cm Ao Asc: 3.10 2.1-3.4 cm Pulmonary Valve PV Pk Christian: 1.48 Peak PV Grad: 9.00 Updated in Other Vendor System with Status of Final Carlos Ramírez MD electronically signed on 06/19/2023 10:10:08 AM with status of Final
--- NOTE | 2023-06-17 09:45 | HM_ITS ---
Conclusion: 1. Patient was monitored for total period of 2 days and 23 hours 2. Baseline was normal sinus rhythm with average heart rate of 81 beats per minute 3. Occasional PACs noted with total burden of 1.2% with 9 SVT runs, longest lasting 7 beats at 154 beats per minute and rare PVC burden noted 4. No significant pauses noted 5. Patient reported 3 symptoms, shortness of breath and leg g correlating with sinus rhythm with PVCs MTDD
== END ==
LOC: HO.CARD 09:40
PROVIDERS: PCP Internal Medicine; Visit Provider Internal Medicine
DX: R06.81 Apnea, not elsewhere classified (principal); R00.0 Tachycardia, unspecified
CPT/HCPCS: 93242; 93306

== ENCOUNTER → 2023-06-17 09:45 | Outpatient (BNV) | payer MEDICARE, MEDICAID, SELFPAY | PROVIDERS: PCP Internal Medicine; Visit Provider Internal Medicine | DX: I49.1 Atrial premature depolarization (principal) | CPT/HCPCS: 93244; 93306 ==

== ENCOUNTER 2023-07-08 08:40 | Outpatient (AMB) | payer MEDICARE, MEDICAID, SELFPAY ==
--- NOTE | 2023-07-08 08:50 | A.OFFVIS_ITS ---
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 Allergies No Known Allergies Allergy (Verified 07/08/23 08:53) Medication List - Last Reconciled 07/08/23 by Stefanie Mcmanus, BALLET SOLOIST-C albuterol sulfate 90 mcg/actuation (ProAir HFA) 1 inh inhalation QID PRN 30 days amlodipine 10 mg PO DAILY Breo Ellipta 200-25 mcg/dose (fluticasone furoate-vilanterol) 1 inh inhalation DAILY 30 days NS ferrous sulfate 324 mg PO BID 90 days ipratropium-albuterol 0.5 mg-3 mg(2.5 mg base)/3 mL 3 mL inhalation Q6H losartan 50 mg PO DAILY omeprazole 40 mg PO DAILY prednisone 5 mg PO Q OTHER DAY simvastatin 40 mg PO DAILY 90 days HPI HPI f/u per HS: Details: Pebbles is an 83-year-old female with past medical history of hypertension, hyperlipidemia, COPD who was recently evaluated for shortness of breath and palpitations. She underwent a echocardiogram and Holter monitor and now presen ts for follow-up. Today she reports that her breathing has gotten a little better recently. She started on a new inhaler and feels that it is helping. She is using updraft treatments at home. No PND, orthopnea or edema. No chest discomfort at rest or with activity. She will keep feel an occasional brief heart palpitation. No sustained rapid or irregular rates. No presyncope, syncope, falls. Typically uses a walker when she goes out. She will have some lightheadedness if she stands for prolonged period of time. She then has to sit and she feels better. Taking meds as directed. [facility] Medical History Dyspnea on exertion Influenza vaccination declined COVID-19 vaccination declined Frequency of micturition Tachycardia Ex-smoker Polyuria Chronic GERD Lipid disorder COPD, severe Hypertension Surgical History Hx of cataract extraction Family History Father HTN (hypertension) Mother No problems noted. Brother No problems noted. Son No problems noted. Son No problems noted. Daughter No problems noted. Daughter No problems noted. Social History Housing: House Alcohol intake: current Alcohol intake frequency: a few times a week Patient Tobacco Use Status: Former Tobacco user Quit Date: 2013 Tobacco use type: Cigarette Years Smoked: 60 years e-Cigarette/Vaping Use: Never Used Second Hand Smoke Exposure: No service: No Current occupational status: retired Cognitive needs: No Hearing needs: No Vision needs: Yes Review of Systems Const All systems reviewed & are unremarkable except as noted in HPI and below ENT Denies dizziness Card Denies chest pain, Denies chest pain at rest, Denies chest pain with activity, Reports rapid heart rate, Denies pedal edema, Denies edema, Denies leg edema, Denies lightheadedness, Denies palpitations, Denies dyspnea, Reports dyspnea on exertion and Denies orthopnea Resp Denies cough, Denies dyspnea and Reports dyspnea on exertion GI Denies hematochezia and Denies change in stool character Musc Denies abnormal gait, Denies limited range of motion, Denies muscle cramps, Denies muscle weakness, Denies numbness, Denies radiating pain into limb, Denies stiffness and Denies tingling Neuro Denies abnormal gait, Denies dizziness, Denies numbness and Denies tingling Endo Denies palpitations Physical Exam Vital Signs: Last Vital Signs Pulse 108 H 07/08/23 08:51 BP 122/60 07/08/23 08:51 BMI result Body Mass Index 29.5 Const General: cooperative, healthy appearing, comfortable and no acute distress Orientation/consciousness: patient oriented x3 Neck Neck: Yes normal visual inspection Resp Effort & Inspection: normal respiratory effort Auscultation: clear to auscultation bilaterally, no crackles, no rales, no rhonchi and no wheezes Cardio Jugular venous distension: no JVD Rate: regular rate Rhythm: regular rhythm Heart sounds: S1 normal heart sound present, S2 normal heart sound present, no murmurs and no rubs Neuro General: patient oriented x3 Extrem General: Yes normal to inspection and No no pedal edema Psych Appearance: grossly normal Mental Status: mental status grossly normal Speech and movement: Normal speech and movement present Assessment & Plan Assessment & Plan (1) Dyspnea on exertion: Comment: EXPLAINED TO HER THAT SHE HAS VERY SEVERE CHRONIC OBSTRUCTIVE PULMONARY DISEASE. AND POSSIBLE HEART DISEASE. HER PREVIOUSLY NOTED ANEMIA HAS RESOLVED. Code(s): R06.09 - Other forms of dyspnea Category: Medical Plan: Reports of shortness of breath with activity. She does have COPD and follows with pulmonology. She was recently started on a new inhaler and does use updraft treatments at home. She said recently her breathing has improved some. On exam she does not appear fluid overloaded and lung sounds are clear. She did have an echocardiogram on 06/17/2023 showing EF 60-65%, basal inferior and inferior lateral hypokinesis. Test results reviewed with her in detail. Suggested pharmacological nuclear stress test to evaluate for any ischemia. She declined stress test at this time. She has no chest discomfort at rest or with activity. Shortness of breath can be explained by her COPD. Spent time reviewing signs and symptoms of angina with her. Emergency care if ever needed for symptoms. Cardiology follow-up in 4 months, sooner if needed for re- evaluation. (2) Tachycardia: Code(s): R00.0 - Tachycardia, unspecified Category: Medical Plan: Reports of tachycardia in the past. She also notices brief heart palpitations. Pulse is elevated at this visit. Initially 108 and recheck done by me 96. She is using updraft treatments with albuterol 3 times daily at home which can contribute to elevated heart rates. Her EF is normal. She did have a Holter monitor done on 06/17/2023 for 3 days showing sinus rhythm with average heart rate 81, PACs noted, brief SVT, longest 7 beats, rare PVC. Test results reviewed with her. She is not bothered by the heart palpitations. Discussed option of changing amlodipine over to diltiazem. She would like to avoid medicine changes at this time. Discussed reduction in caffeinated beverages, chocolate. Maintain good hydration. Physical activity as tolerated. Cut down on albuterol updrafts if her breathing allows versus possible change to Xopenex. 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 (3) Abnormal finding on echocardiogram: Code(s): R93.1 - Abnormal findings on diagnostic imaging of heart and coronary circulation Category: Medical Plan: Basal inferior and inferior lateral hypokinesis noted. Patient declined stress test at this time Plan Time spent on chart review, documentation, interview and assessment Coding Level of Care Code Est Pt Level 4 (63322) Diagnoses Dyspnea on exertion R06.09 Tachycardia R00.0 Abnormal finding on echocardiogram R93.1 Time Spent (min) 30
[2023-07-08 08:51] VITALS: BP 122/60; PULSE 108; BMI 29.5
== END 2023-07-08 09:47 | disposition home or self-care (01) ==
PROVIDERS: PCP Internal Medicine; Visit Provider Nurse Practitioner Family
DX: R06.09 Other forms of dyspnea (principal); R00.0 Tachycardia, unspecified; R93.1 Abnormal findings on diagnostic imaging of heart and coronary circulation
CPT/HCPCS: 99214

== ENCOUNTER → 2023-07-08 08:40 | Outpatient (BNVA) | payer MEDICARE, MEDICAID, SELFPAY | PROVIDERS: PCP Internal Medicine; Visit Provider Nurse Practitioner Family | DX: R06.09 Other forms of dyspnea (principal); R00.0 Tachycardia, unspecified; R93.1 Abnormal findings on diagnostic imaging of heart and coronary circulation | CPT/HCPCS: 99212 ==

== ENCOUNTER 2023-07-22 09:35 | Outpatient (AMB) | payer MEDICARE, MEDICAID, SELFPAY ==
[2023-07-22 09:39] VITALS: BP 102/60; PULSE 100; O2SAT 94; BMI 29.7
--- NOTE | 2023-07-22 09:39 | A.OFFVIS_ITS ---
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 Allergies No Known Allergies Allergy (Verified 07/22/23 09:51) Medication List - Last Reconciled 07/22/23 by Demarco Hilton MD albuterol sulfate 90 mcg/actuation (ProAir HFA) 1 inh inhalation QID PRN 30 days amlodipine 10 mg PO DAILY Breo Ellipta 200-25 mcg/dose (fluticasone furoate-vilanterol) 1 inh inhalation DAILY 30 days NS ferrous sulfate 324 mg PO BID 90 days ipratropium-albuterol 0.5 mg-3 mg(2.5 mg base)/3 mL 3 mL inhalation TID losartan 50 mg PO DAILY omeprazole 40 mg PO DAILY prednisone 5 mg PO .2 x week simvastatin 40 mg PO DAILY 90 days Do you need a note to return to daycare/school/sports/work: No HPI HPI copd: Details: 83 years old very pleasant female is here for follow-up after 4 months. She states that her breathing is definitely improved from before. She can sleep throughout the night without waking up with cough or wheezing. Has been feeling better since she is using Breo. Prednisone has been reduced to 5 mg only twice a week. Luckily she has had no recurrent respiratory infection. Cardiac manuel she is also doing well. [facility] Medical History Dyspnea on exertion Influenza vaccination declined COVID-19 vaccination declined Frequency of micturition Tachycardia Ex-smoker Polyuria Chronic GERD Lipid disorder COPD, severe Hypertension Surgical History Hx of cataract extraction Family History Father HTN (hypertension) Mother No problems noted. Brother No problems noted. Son No problems noted. Son No problems noted. Daughter No problems noted. Daughter No problems noted. Social History Housing: House Alcohol intake: current Alcohol intake frequency: a few times a week Patient Tobacco Use Status: Former Tobacco user Tobacco use type: Cigarette Years Smoked: 60 years e-Cigarette/Vaping Use: Never Used Second Hand Smoke Exposure: No service: No Current occupational status: retired Cognitive needs: No Hearing needs: No Vision needs: Yes Review of Systems Const All systems reviewed & are unremarkable except as noted in HPI and below Eyes Reports no additional complaints ENT Reports no additional complaints Card Denies chest pain, Denies irregular heart rhythm, Denies leg edema and Reports dyspnea on exertion Resp Reports as per HPI and Reports dyspnea on exertion GI Reports heartburn (Being treated with omeprazole) Reports no additional complaints Musc Reports back pain (Mild) Skin/Breast Reports system reviewed and no additional complaints, except as documented Neuro Reports no additional complaints Psych Reports no additional complaints Physical Exam Vital Signs: Last Vital Signs Pulse 100 07/22/23 09:39 BP 102/60 07/22/23 09:39 Pulse Ox 94 07/22/23 09:39 Oxygen Delivery Method Room Air 07/22/23 09:39 BMI result Body Mass Index 29.7 Const Other: Complexion is somewhat pale. General: comfortable, no acute distress, alert and awake Orientation/consciousness: patient oriented x3 HEENT Head: Yes normal to inspection General nose exam: No nasal polyps present and No nasal discharge present Face and sinus: Yes sinuses nontender Mouth: oropharynx normal Throat: Yes posterior oropharynx normal Eyes General: appearance normal, both eyes and all related structures Neck Neck: Yes normal visual inspection, Yes no lymphadenopathy, Yes trachea midline and Yes no JVD Thyroid: Thyroid normal Chest Chest palpation & inspection: normal inspection of the chest, normal palpation of entire chest wall and no tenderness Resp Other: Percussion note hyper resonant, breath sounds are distant with prolonged expiratory phase. No wheezes rhonchi or Creps are heard today . Cardio Palpation: normal PMI Rate: regular rate Rhythm: regular rhythm Heart sounds: no gallops and no murmurs GI Palpation (GI): Soft to palpation, nontender, No hepatosplenomegaly present and no masses Auscultation: normal bowel sounds Back/Spine/Pelvis Thoracic/Lumbar Spine: thoracic and lumbar spine normal to inspection and thoraco-lumbar ROM limited Skin General skin exam: no rashes or lesions noted Neuro General: patient oriented x3 and no focal motor deficits Cranial nerves: Yes CN's II-XII intact bilaterally Extrem General: Yes normal to inspection, Yes no clubbing, cyanosis or edema and Yes no calf tenderness Psych Appearance: grossly normal and well kempt Speech and movement: Normal speech and movement present Assessment & Plan Assessment & Plan (1) COPD, severe: Comment: SHE HAS RATHER SEVERE CHRONIC OBSTRUCTIVE PULMONARY DISEASE, WITH PARTIAL REVERSIBILITY INDICATING MORE LIKE ASTHMA/COPD OVERLAP SYNDROME. SHE IS NOT PRONE TO HAVE FREQUENT EXACERBATIONS. SHE IS DOING FAIRLY WELL ON HER CURRENT MEDICAL REGIMEN. DYSPNEA ON EXERTION IS ALSO MUCH LESS. Code(s): J44.9 - Chronic obstructive pulmonary disease, unspecified Category: Medical Plan: BREO 200-251 INHALATION DAILY ALBUTEROL HFA 2 PUFFS Q 6 HOURS ONLY P.R.N. PREDNISONE 5 MG ONLY TWICE A WEEK. (2) Dyspnea on exertion: Comment: EXPLAINED TO HER THAT SHE HAS VERY SEVERE CHRONIC OBSTRUCTIVE PULMONARY DISEASE. AND POSSIBLE HEART DISEASE. HER PREVIOUSLY NOTED ANEMIA HAS , MOST RECENT HEMOGLOBIN 14.2. Code(s): R06.09 - Other forms of dyspnea Category: Medical Plan: CONTINUE TO TAKE FERROUS SULFATE, DIRECTED BY PCP. (3) Anemia: Comment: PATIENT HAD IRON-DEFICIENCY ANEMIA, HAS BEEN ON IRON SUPPLEMENTS . ANEMIA IS TOTALLY CORRECTED . LAST HEMOGLOBIN 14.2 G. Code(s): D64.9 - Anemia, unspecified Category: Medical Plan: CONTINUE TO TAKE OR IN SUPPLEMENT DIRECTED BY PCP. Coding Level of Care Code Est Pt Level 3 (79364) Diagnoses COPD, severe J44.9 Dyspnea on exertion R06.09 Anemia D64.9
== END 2023-07-22 09:51 | disposition home or self-care (01) ==
PROVIDERS: PCP Internal Medicine; Visit Provider Internal Medicine
DX: J44.9 Chronic obstructive pulmonary disease, unspecified (principal); R06.09 Other forms of dyspnea; D64.9 Anemia, unspecified
CPT/HCPCS: 99213

== ENCOUNTER → 2023-07-22 09:35 | Outpatient (BNVA) | payer MEDICARE, MEDICAID, SELFPAY | PROVIDERS: PCP Internal Medicine; Visit Provider Internal Medicine | DX: J44.9 Chronic obstructive pulmonary disease, unspecified (principal); R06.09 Other forms of dyspnea; D64.9 Anemia, unspecified; Z87.891 Personal history of nicotine dependence | CPT/HCPCS: 99212 ==

== ENCOUNTER 2023-10-31 08:51 | Outpatient (AMB) | payer MEDICARE, MEDICAID, SELFPAY ==
[2023-10-31 09:05] VITALS: BP 124/62; PULSE 103; O2SAT 95; BMI 29.2
--- NOTE | 2023-10-31 09:05 | A.OFFPC_ITS ---
Vital Signs 10/31/23 09:05 Height 5 ft 4 in Weight 170 lb 6 oz BMI 29.2 BP 124/62 Blood Pressure Location Rt brachial Position Sitting Pulse 103 H Pulse Source Pulse Oximeter Pulse Oximetry (%) 95 Oxygen Delivery Method Room Air Intake Visit Reasons: 3m follow up,htn, COPD Allergies No Known Allergies Allergy (Verified 10/31/23 09:08) Medication List - Last Reconciled 10/31/23 by Flavio Bundy MD albuterol sulfate 90 mcg/actuation (ProAir HFA) 1 inh inhalation QID PRN 30 days amlodipine 10 mg PO DAILY Breo Ellipta 200-25 mcg/dose (fluticasone furoate-vilanterol) 1 inh inhalation DAILY 30 days NS ferrous sulfate 324 mg PO BID ipratropium-albuterol 0.5 mg-3 mg(2.5 mg base)/3 mL 3 mL inhalation TID losartan 50 mg PO DAILY omeprazole 40 mg PO DAILY prednisone 5 mg PO .2 x week simvastatin 40 mg PO DAILY 90 days Tobacco use date assessed: 10/31/23 Fall risk assessment: No Falls in past year Last assessed Fall Risk: 10/31/23 Dental Screening Dental Screen Date: 10/31/23 Did you have a dental visit in the last 12 months?: Yes Did you have a dental problem in the last 6 months where you did not have access to dental care?: No Was dental information given to patient?: Patient has dentist HPI 3m follow up,htn, COPD HPI Details Patient is 83-year-old female came in today for her regular follow-up appointment Patient is in her usual state of health, due for labs Hypertension: Patient is taking amlodipine 10 mg along with losartan 50 mg, her blood pressure is stable Continue simvastatin 40 mg for lipid control Chronic GERD: Stable with omeprazole 40 mg Severe COPD managed by Dr. Hilton , she is not on oxygen, she was started on Breo inhaler which is helping She does have a nebulizer machine which is helping her she is using it 3 times a day LFT alkaline phosphatase need to be monitored Urine incontinence continue but it is not that bad, patient says that she is not using any pads or diaper at this time. But she does have some. Continued to be homeless and is residing in a single room Labs to be done today Patient have cardiology appointment coming up this month Dependent on walker for ambulation Suffers from multiple joint arthritis causing weakness in her hands now Follow-up 6 months [facility] Medical History Dyspnea on exertion Influenza vaccination declined COVID-19 vaccination declined Frequency of micturition Tachycardia Ex-smoker Polyuria Chronic GERD Lipid disorder COPD, severe Hypertension Surgical History Hx of cataract extraction Family History Father HTN (hypertension) Mother No problems noted. Brother No problems noted. Son No problems noted. Son No problems noted. Daughter No problems noted. Daughter No problems noted. Social History Housing: House Alcohol intake: current Alcohol intake frequency: a few times a week Patient Tobacco Use Status: Former Tobacco user Tobacco use type: Cigarette Years Smoked: 60 years e-Cigarette/Vaping Use: Never Used Second Hand Smoke Exposure: No service: No Current occupational status: retired Cognitive needs: No Hearing needs: No Vision needs: Yes Questionnaire PHQ-9 Over the last 2 weeks, how often have you been bothered by any of the following problems? 1. Little interest or pleasure in doing things: not at all 2. Feeling down, depressed, or hopeless: not at all 3. Trouble falling or staying asleep, or sleeping too much: nearly every day 4. Feeling tired or having little energy: not at all 5. Poor appetite or overeating: not at all 6. Feeling bad about yourself - or that you are a failure or have let yourself or your family down: not at all 7. Trouble concentrating on things, such as reading the newspaper or watching television: not at all 8. Moving or speaking so slowly that other people could have noticed. Or the opposite - being so fidgety or restless that you have been moving around a lot more than usual: not at all 9. Thoughts that you would be better off or of hurting yourself in some way: not at all Total score: 3 Depression Screening Interpretation: Negative Depression Screening Done: Yes 85586 - PHQ-9 Billing: Yes Source: Developed by Jen MitchellW. Osei, Jan Miranda and colleagues, with an educational andrez from [employer]. Thrive Questionnaire Date Thrive assessed: 10/31/23 I am a: Patient What is your living situation today?: I have a place to live, but I am worried about losing it in the future Within the past 12 months, did the food you bought not last and you didn't have the money to get more?: Never true Within the past 12 months, did you worry whether your food would run out before you got money to buy more?: Never true Do you have trouble paying for medicines?: No Do you have trouble getting transportation to medical appointments?: Yes Do you have trouble paying your heating and electricity bill?: No Do you have trouble taking care of your child, family member or friend?: No Do you have trouble with day-to-day activities such as bathing, preparing meals, shopping, managing finances, etc.?: Yes Are you currently unemployed and looking for a job?: No Are you interested in more education?: No Please select the resources that you would like help with: None Currently or been in a relationship where the following occur: No concerns reported THRIVE Score: 2 AUDIT C Alcohol Use Questionnaire (AUDIT-C) 1. How often do you have a drink containing alcohol?: Never 3. How often do you have six or more drinks on one occasion?: Never Total Score: 0 Score Reviewed/Action Taken: Yes HEMANT-7 AMB Questionnaire HEMANT-7 Date HEMANT - 7 assessed: 10/31/23 Feeling nervous, anxious, or on edge: 2 = More than half the days Not being able to stop or control worryin = More than half the days Worrying too much about different things: 1 = Several days Trouble relaxin = Not at all Being so restless that it is hard to sit still: 1 = Several days Becoming easily annoyed or irritable: 0 = Not at all Feeling afraid as if something awful might happen: 0 = Not at all Total HEMANT-7 score (0-4 normal; 5-9 mild; 10-14 moderate; 15-21 severe): 6 Source: Developed by Jen Mitchell Kurt Kroenke and colleagues, with an educational andrez from [employer]. HEMANT-7 Assessment Billing HEMANT-7 Assessment Tool: HEMANT-7 Assessment 70350 Review of Systems Const Denies chills and Denies fever(s) ENT Denies epistaxis and Denies nasal discharge Card Denies chest pain Resp Denies chest congestion, Denies cough and Denies hemoptysis GI Denies diarrhea and Denies nausea Skin/Breast Denies rash Neuro Reports no additional complaints Psych Reports no additional complaints Endo Reports no additional complaints Physical exam (Primary Care) Vital Signs: Last Vital Signs Pulse 103 H 10/31/23 09:05 BP 124/62 10/31/23 09:05 Pulse Ox 95 10/31/23 09:05 Oxygen Delivery Method Room Air 10/31/23 09:05 BMI result Body Mass Index 29.2 Tobacco/Smoking Status: Tobacco use Status Tobacco use date assessed 10/31/23 10/31/23 09:06 Patient Tobacco Use Status Former Tobacco user 10/31/23 09:06 Tobacco use type Cigarette 10/31/23 09:06 e-Cigarette/Vaping Use Never Used 10/31/23 09:06 PHQ-9: PHQ-9 Score PHQ-9: Total score 3 10/31/23 09:09 Depression Screening Interpretation: Negative Thrive Assessment: Date of Thrive Assessment Date Thrive assessed 10/31/23 10/31/23 09:09 Currently or been in a relationship where the following occur: No concerns reported Const General: cooperative, comfortable and no acute distress Orientation/consciousness: patient oriented x3 HENMT Head: Yes normocephalic Eyes General: appearance normal, both eyes and all related structures Neck Neck: Yes supple Resp Effort & Inspection: normal respiratory effort, no cough and no stridor Cardio Rhythm: regular rhythm Heart sounds: S1 normal heart sound present and S2 normal heart sound present Skin General skin exam: turgor normal Neuro General: patient oriented x3, tone normal and moves all extremities Extrem Right lower extremity: no edema Left lower extremity: no edema Assessment and Plan Assessment & Plan (1) Hypertension, essential: Code(s): I10 - Essential (primary) hypertension (2) Lipid disorder: Code(s): E78.9 - Disorder of lipoprotein metabolism, unspecified (3) Osteoarthritis involving multiple joints on both sides of body: Code(s): M15.9 - Polyosteoarthritis, unspecified (4) COPD, severe: Code(s): J44.9 - Chronic obstructive pulmonary disease, unspecified (5) Overactive bladder: Code(s): N32.81 - Overactive bladder (6) Iron deficiency anemia: Code(s): D50.9 - Iron deficiency anemia, unspecified Qualifiers: Iron deficiency anemia type: unspecified iron deficiency Qualified Code(s): D50.9 - Iron deficiency anemia, unspecified (7) LFT elevation: Code(s): R79.89 - Other specified abnormal findings of blood chemistry (8) Homeless: Code(s): Z59.00 - Homelessness unspecified (9) Uses roller walker: Code(s): Z99.89 - Dependence on other enabling machines and devices (10) Risk for falls: Code(s): Z91.81 - History of falling Plan Patient is 83-year-old female came in today for her regular follow-up appoin tment Patient is in her usual state of health, due for labs Hypertension: Patient is taking amlodipine 10 mg along with losartan 50 mg, her blood pressure is stable Continue simvastatin 40 mg for lipid control Chronic GERD: Stable with omeprazole 40 mg Last set of lab was done in May hemoglobin was within limit I have told the patient to cut down iron intake to 2 times a week Severe COPD managed by Dr. Hilton , she is not on oxygen, she was started on Breo inhaler which is helping She does have a nebulizer machine which is helping her she is using it 3 times a day LFT alkaline phosphatase need to be monitored Urine incontinence continue but it is not that bad, patient says that she is not using any pads or diaper at this time. But she does have some. Continued to be homeless and is residing in a single room Labs to be done today Patient have cardiology appointment coming up this month Dependent on walker for ambulation Suffers from multiple joint arthritis causing weakness in her hands now Follow-up 6 months Orders: Orders Complete Blood Count Auto Diff Today D50.9 - Iron deficiency anemia, unspecified, E78.9 - Disorder of lipoprotein metabolism, unspecified, I10 - Essential (primary) hypertension, J44.9 - Chronic obstructive pulmonary disease, unspecified, N32.81 - Overactive bladder Comprehensive Met. Panel Today D50.9 - Iron deficiency anemia, unspecified, E78.9 - Disorder of lipoprotein metabolism, unspecified, I10 - Essential (primary) hypertension, J44.9 - Chronic obstructive pulmonary disease, unspecified, N32.81 - Overactive bladder Ferritin Today D50.9 - Iron deficiency anemia, unspecified Coding Level of Care Code Est Pt Level 4 (72973) Complex EM visit Add On G2211 Diagnoses Hypertension, essential I10 Lipid disorder E78.9 Osteoarthritis involving multiple joints on both sides of body M15.9 COPD, severe J44.9 Overactive bladder N32.81 Iron deficiency anemia, unspecified iron deficiency anemia type D50.9 Iron deficiency anemia type: unspecified iron deficiency LFT elevation R79.89 Homeless Z59.00 Uses roller walker Z99.89 Risk for falls Z91.81 Additional Codes HEMANT-7 Assessment Billing - HEMANT-7 Assessment Tool: HEMANT-7 Assessment 86550 ([id number])
== END 2023-10-31 10:22 | disposition home or self-care (01) ==
PROVIDERS: PCP Internal Medicine; Visit Provider Internal Medicine
DX: I10 Essential (primary) hypertension (principal); J44.9 Chronic obstructive pulmonary disease, unspecified; E78.9 Disorder of lipoprotein metabolism, unspecified; Z59.00 Homelessness unspecified; M15.9 Polyosteoarthritis, unspecified; N32.81 Overactive bladder; D50.9 Iron deficiency anemia, unspecified; R79.89 Other specified abnormal findings of blood chemistry; Z99.89 Dependence on other enabling machines and devices; Z91.81 History of falling
CPT/HCPCS: 99214; G2211

== ENCOUNTER 2023-10-31 09:33 | Outpatient (REF) | payer MEDICARE, MEDICAID, SELFPAY ==
[2023-10-31 13:59] LABS: MANUAL DIFF FLAG NO
[2023-10-31 14:02] LABS: Basophils Absolute Auto 0.1 X10*3/uL (0.0-0.2); Basophils Percent Auto 0.8 % (0-2); Eosinophils Absolute Auto 0.2 X10*3/uL (0.0-0.4); Eosinophils Percent Auto 1.7 % (0-4); Hematocrit 45.4 % (37.0-47.0); Hemoglobin 14.3 g/dl (12.0-16.0); Imm Gran Abs Auto 0.12 X10*3/uL (0.00-0.03); Imm Gran Pct Auto 1.1 % (0.0-0.4); Lymphocytes Absolute Auto 2.5 X10*3/uL (1.2-4.9); Lymphocytes Percent Auto 23.4 % (20-40); Mean Corpuscular HGB Conc 31.5 g/dl (31.0-35.0); Mean Corpuscular Hemoglobin 27.8 pg (27.0-33.0); Mean Corpuscular Volume 88.2 fL (80.0-98.0); Monocytes Absolute Auto 0.9 X10*3/uL (0.1-1.2); Monocytes Percent Auto 8.2 % (2-11); Neutrophils Percent Auto 64.8 % (45-73); Platelet Count 419 X10*3/uL (160-400); Red Blood Count 5.15 X10*6/uL (4.20-5.50); Red Cell Distribution Width 14.7 % (11.0-16.0); White Blood Count 10.8 X10*3/uL (4.8-10.8)
[2023-10-31 14:21] LABS: Alanine Aminotransferase 13 U/L (0-31); Albumin Level 4.2 g/dL (3.5-5.0); Alkaline Phosphatase 154 U/L (39-117); Anion Gap 14 (12-20); Aspartate Amino Transferase 16 U/L (5-31); Bilirubin Total 0.4 mg/dL (0.0-1.0); Blood Urea Nitrogen 12 mg/dL (9-16); Calcium 10.1 mg/dL (8.4-10.2); Carbon Dioxide 27 mmol/L (22-29); Chloride 104 mmol/L (96-108); Estimated Glomerular Filt Rate 56; Glucose Random 108 mg/dL (60-115); Potassium 4.5 mmol/L (3.3-5.1); Sodium 140 mmol/L (135-145); Total Protein 7.5 g/dL (6.5-8.0)
[2023-10-31 14:43] LABS: Ferritin 72 ng/mL (10-250)
== END 2023-10-31 09:34 | disposition home or self-care (01) ==
LOC: HO.HMGCLDS 09:33
PROVIDERS: PCP Internal Medicine; Visit Provider Internal Medicine
DX: E78.9 Disorder of lipoprotein metabolism, unspecified (principal); J44.9 Chronic obstructive pulmonary disease, unspecified; N32.81 Overactive bladder; D50.9 Iron deficiency anemia, unspecified; I10 Essential (primary) hypertension
CPT/HCPCS: 36415; 80053; 82728; 85025

== ENCOUNTER 2023-11-04 09:05 | Outpatient (AMB) | payer MEDICARE, MEDICAID, SELFPAY ==
--- NOTE | 2023-11-04 09:08 | MHC.OFFVIS ---
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 Accompanied by: Self / Same As Patient Allergies No Known Allergies Allergy (Verified 10/31/23 09:08) Medication List - Last Reconciled 11/04/23 by Carlos Ramírez MD albuterol sulfate 90 mcg/actuation (ProAir HFA) 1 inh inhalation QID PRN 30 days amlodipine 10 mg PO DAILY Breo Ellipta 200-25 mcg/dose (fluticasone furoate-vilanterol) 1 inh inhalation DAILY 30 days NS ferrous sulfate 324 mg orally 2x a week; ipratropium-albuterol 0.5 mg-3 mg(2.5 mg base)/3 mL 3 mL inhalation TID losartan 50 mg PO DAILY omeprazole 40 mg PO DAILY prednisone 5 mg PO .2 x week simvastatin 40 mg PO DAILY 90 days HPI Comments Details: Pebbles returns for follow-up. In the past, she was seen regarding shortness of breath and tachycardia. She has a history of severe COPD. She does get short of breath with activity. However, it has been like this for a while. Has smoked in the past but nothing recently. From the cardiac standpoint, she underwent an echocardiogram and Holter monitoring. Overall, she states she is feeling just about the same as before. No new concerns. No clear anginal-type symptoms. [facility] Medical History Dyspnea on exertion Influenza vaccination declined COVID-19 vaccination declined Frequency of micturition Tachycardia Ex-smoker Polyuria Chronic GERD Lipid disorder COPD, severe Hypertension Surgical History Hx of cataract extraction Family History Father HTN (hypertension) Mother No problems noted. Brother No problems noted. Son No problems noted. Son No problems noted. Daughter No problems noted. Daughter No problems noted. Social History Housing: House Alcohol intake: current Alcohol intake frequency: a few times a week Patient Tobacco Use Status: Former Tobacco user Tobacco use type: Cigarette Years Smoked: 60 years e-Cigarette/Vaping Use: Never Used Second Hand Smoke Exposure: No service: No Current occupational status: retired Cognitive needs: No Hearing needs: No Vision needs: Yes Review of Systems Const Denies chills, Denies fatigue, Denies fever(s), Denies weight gain and Denies weight loss ENT Denies dizziness Card Denies chest pain, Denies leg edema, Denies lightheadedness, Denies palpitations, Reports dyspnea on exertion, Denies orthopnea and Denies other Resp Denies cough and Reports dyspnea on exertion GI Denies hematochezia and Denies change in stool character Musc Denies abnormal gait, Denies muscle weakness, Denies numbness, Denies radiating pain into limb and Denies tingling Neuro Denies abnormal gait, Denies dizziness, Denies numbness and Denies tingling Endo Denies fatigue and Denies palpitations Physical Exam Vital Signs: Last Vital Signs Pulse 90 11/04/23 09:09 BP 126/60 11/04/23 09:09 BMI result Body Mass Index 29.1 Const General: comfortable and no acute distress Orientation/consciousness: patient oriented x3 HEENT Other: Unremarkable Head: Yes normal to inspection Neck Neck: Yes normal visual inspection Chest Chest palpation & inspection: normal inspection of the chest Resp Auscultation: clear to auscultation bilaterally Cardio Palpation: normal PMI Heart sounds: S1 normal heart sound present, S2 normal heart sound present, no gallops, no murmurs and no rubs GI Palpation (GI): Soft to palpation Back/Spine/Pelvis Other: unremarkable Skin General skin exam: no rashes or lesions noted Neuro General: patient oriented x3 Extrem General: Yes normal to inspection Psych Mental Status: mental status grossly normal Assessment & Plan Assessment & Plan (1) Breathlessness on exertion: Code(s): R06.81 - Apnea, not elsewhere classified Category: Medical (2) COPD, severe: Code(s): J44.9 - Chronic obstructive pulmonary disease, unspecified Category: Medical (3) Tachycardia: Code(s): R00.0 - Tachycardia, unspecified Category: Medical Plan Cardiac studies reviewed. Baseline EKG showed sinus tachycardia 109/Min; supraventricular ectopy; right bundle-branch block pattern. Echocardiogram with LVEF of 60-65%; basal inferior/inferolateral hypokinesis. Otherwise unremarkable. Holter shows underlying sinus rhythm with an average rate of 81/Min. No significant tachycardia. Occasional supraventricular ectopy. Overall, suspect shortness of breath is primarily related to COPD. Underlying coronary disease is possible. We discussed about stress testing but she would rather not undergo anything at this time. This was also discussed last time. She can take low-dose aspirin. Remain on statins. If any symptoms like angina, she will contact us. Medications: Changed From ferrous sulfate 324 mg PO BID 180 tabs 3RF To ferrous sulfate 324 mg orally 2x a week; Coding Level of Care Code Est Pt Level 3 (77001) Diagnoses Breathlessness on exertion R06.81 COPD, severe J44.9 Tachycardia R00.0
[2023-11-04 09:09] VITALS: BP 126/60; PULSE 90; BMI 29.1
== END 2023-11-04 09:25 | disposition home or self-care (01) ==
PROVIDERS: PCP Internal Medicine; Visit Provider Internal Medicine
DX: R06.81 Apnea, not elsewhere classified (principal); J44.9 Chronic obstructive pulmonary disease, unspecified; R00.0 Tachycardia, unspecified
CPT/HCPCS: 99213

== ENCOUNTER → 2023-11-04 09:05 | Outpatient (BNVA) | payer MEDICARE, MEDICAID, SELFPAY | PROVIDERS: PCP Internal Medicine; Visit Provider Internal Medicine | DX: J44.9 Chronic obstructive pulmonary disease, unspecified (principal); R06.81 Apnea, not elsewhere classified; R00.0 Tachycardia, unspecified | CPT/HCPCS: 99212 ==

== ENCOUNTER 2024-01-27 09:12 | Outpatient (AMB) | payer MEDICARE, MEDICAID, SELFPAY ==
--- NOTE | 2024-01-27 09:21 | A.OFFVIS_ITS ---
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 Allergies No Known Allergies Allergy (Verified 01/27/24 09:26) Medication List - Last Reconciled 01/27/24 by Demarco Hilton MD albuterol sulfate 90 mcg/actuation (ProAir HFA) 1 inh inhalation QID PRN 30 days amlodipine 10 mg PO DAILY Breo Ellipta 200-25 mcg/dose (fluticasone furoate-vilanterol) 1 inh inhalation DAILY 30 days NS ferrous sulfate 324 mg orally 2x a week; ipratropium-albuterol 0.5 mg-3 mg(2.5 mg base)/3 mL 3 mL inhalation TID losartan 50 mg PO DAILY omeprazole 40 mg PO DAILY prednisone 5 mg PO .2 x week simvastatin 40 mg PO DAILY 90 days Do you need a note to return to daycare/school/sports/work: No HPI HPI COPD: Details: 83 YEARS OLD FEMALE A CASE OF ADVANCED CHRONIC OBSTRUCTIVE PULMONARY DISEASE DUE TO HER PAST SMOKING WHICH SHE QUIT 6 YEARS AGO, COMES FOR HER ROUTINE FOLLOW-UP AFTER 4 MONTHS. HAS BEEN RELATIVELY STABLE BUT SINCE LAST NIGHT COMPLAINS OF SOME NASAL CONGESTION AND DRYNESS IN THE MOUTH, WITH INCREASED COUGH. SHE HAS NO FEVER OR CHILLS. SHE DOES GET SHORT OF BREATH WHEN SHE WALKS MORE THAN A BLOCK OR 2 , BUT IT IS MUCH BETTER SINCE HER ANEMIA HAS BEEN TREATED WITH IRON SUPPLEMENTS. [facility] Medical History Dyspnea on exertion Influenza vaccination declined COVID-19 vaccination declined Frequency of micturition Tachycardia Ex-smoker Polyuria Chronic GERD Lipid disorder COPD, severe Hypertension Surgical History Hx of cataract extraction Family History Father HTN (hypertension) Mother No problems noted. Brother No problems noted. Son No problems noted. Son No problems noted. Daughter No problems noted. Daughter No problems noted. Social History Housing: House Alcohol intake: current Alcohol intake frequency: a few times a week Patient Tobacco Use Status: Former Tobacco user Tobacco use type: Cigarette Years Smoked: 60 years e-Cigarette/Vaping Use: Never Used Second Hand Smoke Exposure: No service: No Current occupational status: retired Cognitive needs: No Hearing needs: No Vision needs: Yes Review of Systems Const All systems reviewed & are unremarkable except as noted in HPI and below Eyes Reports no additional complaints ENT Reports no additional complaints Card Denies chest pain, Denies irregular heart rhythm, Denies leg edema and Reports dyspnea on exertion Resp Reports as per HPI and Reports dyspnea on exertion GI Reports heartburn (Being treated with omeprazole) Reports no additional complaints Musc Reports back pain (Mild) Skin/Breast Reports system reviewed and no additional complaints, except as documented Neuro Reports no additional complaints Psych Reports no additional complaints Physical Exam Vital Signs: Last Vital Signs Pulse 109 H 01/27/24 09:22 BP 112/62 01/27/24 09:22 Pulse Ox 96 01/27/24 09:22 Oxygen Delivery Method Room Air 01/27/24 09:22 BMI result Body Mass Index 28.8 Const Other: Complexion is somewhat pale. General: comfortable, no acute distress, alert and awake Orientation/consciousness: patient oriented x3 HEENT Head: Yes normal to inspection General nose exam: No nasal polyps present and No nasal discharge present Face and sinus: Yes sinuses nontender Mouth: oropharynx normal Throat: Yes posterior oropharynx normal Eyes General: appearance normal, both eyes and all related structures Neck Neck: Yes normal visual inspection, Yes no lymphadenopathy, Yes trachea midline and Yes no JVD Thyroid: Thyroid normal Chest Chest palpation & inspection: normal inspection of the chest, normal palpation of entire chest wall and no tenderness Resp Other: Percussion note hyper resonant, breath sounds are distant with prolonged expiratory phase. No wheezes rhonchi or Creps are heard today . Cardio Palpation: normal PMI Rate: regular rate Rhythm: regular rhythm Heart sounds: no gallops and no murmurs GI Palpation (GI): Soft to palpation, nontender, No hepatosplenomegaly present and no masses Auscultation: normal bowel sounds Back/Spine/Pelvis Thoracic/Lumbar Spine: thoracic and lumbar spine normal to inspection and thoraco-lumbar ROM limited Skin General skin exam: no rashes or lesions noted Neuro General: patient oriented x3 and no focal motor deficits Cranial nerves: Yes CN's II-XII intact bilaterally Extrem General: Yes normal to inspection, Yes no clubbing, cyanosis or edema and Yes no calf tenderness Psych Appearance: grossly normal and well kempt Speech and movement: Normal speech and movement present Results Reviewed Results Reviewed: SPIROMETRY FVC=66 % FEV1=39 % FEF 25-75 = 21 % C/W SEVERE CHRONIC OBSTRUCTIVE PULMONARY DISEASE, THE FLOW VOLUMES ARE SLIGHTLY DECLINED COMPARED TO 2023 Assessment & Plan Assessment & Plan (1) Ex-smoker: Comment: SHE QUIT 6 YEARS AGO AFTER SMOKING 1 PACK A DAY FOR 60 YEARS. HAS FELT MUCH BETTER SINCE SHE QUIT Code(s): Z87.891 - Personal history of nicotine dependence Category: Social Hx Plan: COMMENDED FOR NOT GOING BACK TO SMOKING AND SHE IS WELL MOTIVATED. (2) COPD, severe: Comment: SHE HAS RATHER SEVERE CHRONIC OBSTRUCTIVE PULMONARY DISEASE, WITH PARTIAL REVERSIBILITY INDICATING MORE LIKE ASTHMA/COPD OVERLAP SYNDROME. SHE IS NOT PRONE TO HAVE FREQUENT EXACERBATIONS, LONG SHE STAYS ON PREDNISONE 5 MG TWICE A WEEK. SHE IS DOING FAIRLY WELL ON HER CURRENT MEDICAL REGIMEN. DYSPNEA ON EXERTION IS ALSO MUCH LESS, AFTER TREATMENT OF ANEMIA. SPIROMETRY TODAY: SHOWS THAT SHE DOES HAVE ADVANCED CHRONIC OBSTRUCTIVE PULMONARY DISEASE AND FLOW VOLUMES ARE ACTUALLY SOMEWHAT DECREASED FROM 2022, Code(s): J44.9 - Chronic obstructive pulmonary disease, unspecified Category: Medical Plan: CONTINUE BREO 200-251 INHALATION DAILY IPRATROPIUM-ALBUTEROL SOLUTION IN THE NEBULIZER T.I.D. AND MAY USE 1 EXTRA TREATMENT PER DAY NEEDED. PREDNISONE 5 MG 2 DAYS A WEEK. PROAIR 2 PUFFS Q 6 HOURS P.R.N. WHEN OUTDOORS. INSTRUCTED TO HAVE A HUMIDIFIER OR A VAPORIZER IN THE BEDROOM AT NIGHTTIME Coding Level of Care Code Est Pt Level 3 (51492) Diagnoses Ex-smoker Z87.891 COPD, severe J44.9
[2024-01-27 09:22] VITALS: BP 112/62; PULSE 109; O2SAT 96; BMI 28.8
== END 2024-01-27 09:49 | disposition home or self-care (01) ==
PROVIDERS: PCP Internal Medicine; Visit Provider Internal Medicine
DX: Z87.891 Personal history of nicotine dependence (principal); J44.9 Chronic obstructive pulmonary disease, unspecified
CPT/HCPCS: 94010; 99213

== ENCOUNTER → 2024-01-27 09:12 | Outpatient (BNVA) | payer MEDICARE, MEDICAID, SELFPAY | PROVIDERS: PCP Internal Medicine; Visit Provider Internal Medicine | DX: J44.9 Chronic obstructive pulmonary disease, unspecified (principal); Z87.891 Personal history of nicotine dependence | CPT/HCPCS: 94010; 99212 ==

== ENCOUNTER 2024-05-04 08:44 | Outpatient (AMB) | payer MEDICARE, MEDICAID, SELFPAY ==
--- NOTE | 2024-05-04 08:51 | A.OFFPC_ITS ---
Vital Signs 05/04/24 08:52 Height 5 ft 4 in Weight 163 lb 4 oz BMI 28.0 BP 106/58 L Blood Pressure Location Rt brachial Position Sitting Respiration 16 Pulse 106 H Pulse Source Pulse Oximeter Temp 97.7 F Temp Source Oral Pulse Oximetry (%) 96 Oxygen Delivery Method Room Air Intake Visit Reasons: 6 months f/up Allergies No Known Allergies Allergy (Verified 01/27/24 09:26) Medication List - Last Reconciled 05/04/24 by Flavio Bundy MD albuterol sulfate 90 mcg/actuation (ProAir HFA) 1 inh inhalation QID PRN 30 days amlodipine 10 mg PO DAILY Breo Ellipta 200-25 mcg/dose (fluticasone furoate-vilanterol) 1 inh inhalation DAILY 30 days NS ferrous sulfate 324 mg orally 2x a week; ipratropium-albuterol 0.5 mg-3 mg(2.5 mg base)/3 mL 3 mL inhalation TID losartan 50 mg PO DAILY omeprazole 40 mg PO DAILY prednisone 5 mg PO .2 x week simvastatin 40 mg PO DAILY 90 days Tobacco use date assessed: 10/31/23 Dental Screening Dental Screen Date: 10/31/23 HPI 6 months f/up HPI Details History The patient is an 84-year-old female with a history of severe COPD, dependent on walker for ambulation, GERD, hypertension, iron-deficiency anemia, lipid disorder Established with Pulmonary [facility] whom she is seeing only once a year presenting with oral discomfort and dysgeusia. - Soreness in the oral cavity has been b ilateral and present for over a month. - She reports dysgeusia affecting her ab ility to enjoy food, impacting overall nutrition. - Recently, she experienced a burning se nsation on her tongue, suspecting oral candidiasis. - Medication profile includes prednisone , which may predispose her to thrush - Reports low blood pressure but denies general dizziness or lightheadedness except in specific anxiety-provoking situations. - She manages hypertension with amlodipi ne and losartan, suggesting recent low blood pressure issues have led her to modify medication , she is to cut amlodipine to 5 mg from 10 . - Her anxiety manifests in situations nagy ch as attempting physical exercise or enduring queues at stores. - GERD is stable Problem List - Oral Candidiasis (suspected) - Dysgeusia - Low Blood Pressure (Hypotension) - Anxiety - Prednisone Use - Hypertension - lipid disorder - chronic GERD - risk for fall - elevated alkaline phosphatase Patient Instructions - Reduce amlodipine dosage to half a tab let (5 mg) and monitor blood pressure regularly at home. - Begin treatment with prescribed clotri mazole lozenges for oral discomfort and follow the instructions on the package. - labs are needed today , last set of la bs in October of last year - Note and discuss any further concerns during appointmetns with hardware sales assistant and jig inspector. Review of Systems - General: No fever no chills - Neurological: No headaches no dizziness - Ear nose throat: No sore throat no hearing difficulty no ear pain - Cardiovascular: No syncope, no chest pain, no palpitations - Gastrointestinal: No nausea vomiting or diarrhea Physical Exam General: No acute distress HEENT: Burning sensation on the tongue, possible thrush symptoms rash present on corner of lips Neck: Supple Respiratory system: Able to talk in full sentences, no audible wheeze cardiovascular: S1-S2 regular in rate and rhythm, low blood pressure noted Gastrointestinal: No pain, but food tastes awful or cannot be tasted Extremities: No new findings 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 Brother No problems noted. Son No problems noted. Son No problems noted. Daughter No problems noted. Daughter No problems noted. Social History Housing: House Alcohol intake: current Alcohol intake frequency: a few times a week Patient Tobacco Use Status: Former Tobacco user Tobacco use type: Cigarette Years Smoked: 60 years e-Cigarette/Vaping Use: Never Used Second Hand Smoke Exposure: No service: No Current occupational status: retired Cognitive needs: No Hearing needs: No Vision needs: Yes Questionnaire PHQ-9 Over the last 2 weeks, how often have you been bothered by any of the following problems? 1. Little interest or pleasure in doing things: not at all 2. Feeling down, depressed, or hopeless: not at all 3. Trouble falling or staying asleep, or sleeping too much: nearly every day 4. Feeling tired or having little energy: nearly every day 5. Poor appetite or overeating: more than half the days 6. Feeling bad about yourself - or that you are a failure or have let yourself or your family down: not at all 7. Trouble concentrating on things, such as reading the newspaper or watching television: not at all 8. Moving or speaking so slowly that other people could have noticed. Or the opposite - being so fidgety or restless that you have been moving around a lot more than usual: nearly every day 9. Thoughts that you would be better off or of hurting yourself in some way: not at all Total score: 11 Depression Screening Interpretation: Positive Depression Screening Follow-up: Existing condition and Declines treatment Depression Screening Done: Yes Source: Developed by Drs. Bradford Thakkar, Jen Franz, Jan Miranda and colleagues, with an educational andrez from [employer]. Thrive Questionnaire Date Thrive assessed: 10/31/23 I am a: Patient What is your living situation today?: I have a place to live, but I am worried about losing it in the future Within the past 12 months, did the food you bought not last and you didn't have the money to get more?: Never true Within the past 12 months, did you worry whether your food would run out before you got money to buy more?: Never true Do you have trouble paying for medicines?: No Do you have trouble getting transportation to medical appointments?: Yes Do you have trouble paying your heating and electricity bill?: No Do you have trouble taking care of your child, family member or friend?: No Do you have trouble with day-to-day activities such as bathing, preparing meals, shopping, managing finances, etc.?: Yes Are you currently unemployed and looking for a job?: No Are you interested in more education?: No Please select the resources that you would like help with: Transportation Currently or been in a relationship where the following occur: I choose not to answer THRIVE Score: 2 AUDIT C Alcohol Use Questionnaire (AUDIT-C) 1. How often do you have a drink containing alcohol?: Never Total Score: 0 HEMANT-7 AMB Questionnaire HEMANT-7 Date HEMANT - 7 assessed: 10/31/23 Feeling nervous, anxious, or on edge: 1 = Several days Not being able to stop or control worryin = Not at all Worrying too much about different things: 0 = Not at all Trouble relaxin = Not at all Being so restless that it is hard to sit still: 0 = Not at all Becoming easily annoyed or irritable: 0 = Not at all Feeling afraid as if something awful might happen: 0 = Not at all Total HEMANT-7 score (0-4 normal; 5-9 mild; 10-14 moderate; 15-21 severe): 1 Source: Developed by Drs. Bradford Thakkar, Jen Franz, Jan Miranda and colleagues, with an educational andrez from [employer]. Physical exam (Primary Care) Vital Signs: Last Vital Signs Temp 97.7 F 05/04/24 08:52 Pulse 106 H 05/04/24 08:52 Resp 16 05/04/24 08:52 BP 106/58 L 05/04/24 08:52 Pulse Ox 96 05/04/24 08:52 Oxygen Delivery Method Room Air 05/04/24 08:52 BMI result Body Mass Index 28.0 Tobacco/Smoking Status: Tobacco use Status Tobacco use date assessed 10/31/23 05/04/24 08:54 Patient Tobacco Use Status Former Tobacco user 05/04/24 08:54 Tobacco use type Cigarette 05/04/24 08:54 e-Cigarette/Vaping Use Never Used 05/04/24 08:54 PHQ-9: PHQ-9 Score PHQ-9: Total score 11 05/04/24 09:17 Depression Screening Interpretation: Positive Depression Screening Follow-up: Existing condition and Declines treatment Thrive Assessment: Date of Thrive Assessment Date Thrive assessed 10/31/23 05/04/24 08:54 Currently or been in a relationship where the following occur: I choose not to answer Coding Level of Care Code Est Pt Level 5 (68518) Complex EM visit Add On G2211 Diagnoses Hypertension, essential I10 Oral candidosis B37.0 Current chronic use of systemic steroids Z79.52 Lipid disorder E78.9 Chronic GERD K21.9 COPD, severe J44.9 Alcoholism F10.20 Overactive bladder N32.81 Iron deficiency anemia, unspecified iron deficiency anemia type D50.9 Iron deficiency anemia type: unspecified iron deficiency LFT elevation R79.89 Uses roller walker Z99.89 Osteoarthritis involving multiple joints on both sides of body M15.9 Assessment & Plan Assessment & Plan (1) Hypertension, essential: Code(s): I10 - Essential (primary) hypertension Category: Medical (2) Oral candidosis: Code(s): B37.0 - Candidal stomatitis Category: Medical (3) Current chronic use of systemic steroids: Code(s): Z79.52 - FPC (current) use of systemic steroids Category: Medical (4) Lipid disorder: Code(s): E78.9 - Disorder of lipoprotein metabolism, unspecified Category: Medical (5) Chronic GERD: Code(s): K21.9 - Gastro-esophageal reflux disease without esophagitis Category: Medical (6) COPD, severe: Code(s): J44.9 - Chronic obstructive pulmonary disease, unspecified Category: Medical (7) Alcoholism: Comment: Patient is cutting down Code(s): F10.20 - Alcohol dependence, uncomplicated Category: Medical (8) Overactive bladder: Code(s): N32.81 - Overactive bladder Category: Medical (9) Iron deficiency anemia: Code(s): D50.9 - Iron deficiency anemia, unspecified Category: Medical Qualifiers: Iron deficiency anemia type: unspecified iron deficiency Qualified Code(s): D50.9 - Iron deficiency anemia, unspecified (10) LFT elevation: Code(s): R79.89 - Other specified abnormal findings of blood chemistry Category: Medical (11) Uses roller walker: Code(s): Z99.89 - Dependence on other enabling machines and devices Category: Medical (12) Osteoarthritis involving multiple joints on both sides of body: Code(s): M15.9 - Polyosteoarthritis, unspecified Category: Medical Plan History The patient is an 84-year-old female with a history of severe COPD, dependent on walker for ambulation, GERD, hypertension, iron-deficiency anemia, lipid disorder Chronic alcoholism Established with Pulmonary [facility] whom she is seeing only once a year presenting with oral discomfort and dysgeusia. - Soreness in the oral cavity has been bilateral and present for over a month. - She reports dysgeusia affecting her ability to enjoy food, impacting overall nutrition. - Recently, she experienced a burning sensation on her tongue, suspecting oral candidiasis. - Medication profile includes prednisone, which may predispose her to thrush - Reports low blood pressure but denies general dizziness or lightheadedness except in specific anxiety-provoking situations. - She manages hypertension with amlodipine and losartan, suggesting recent low blood pressure issues have led her to modify medication , she is to cut amlodipine to 5 mg from 10 . - Her anxiety manifests in situations such as attempting physical exercise or enduring queues at stores. - GERD is stable - chronically elevated alkaline phosphatase we are monitoring it - iron-deficiency anemia, repeated labs are needed - anxiety provoked by shortness a breath due to severe COPD Problem List - Oral Candidiasis (suspected) - Dysgeusia - Low Blood Pressure (Hypotension) - Anxiety - Prednisone Use - Hypertension - lipid disorder - chronic GERD - risk for fall - elevated alkaline phosphatase Patient Instructions - Reduce amlodipine dosage to half a tablet (5 mg) and monitor blood pressure regularly at home. - Begin treatment with prescribed clotrimazole lozenges for oral discomfort and follow the instructions on the package. - labs are needed today , last set of labs in October of last year - Note and discuss any further concerns during appointmetns with hardware sales assistant and jig inspector. 40 minutes spent in care of this patient Orders: Orders Complete Blood Count Auto Diff Today D50.9 - Iron deficiency anemia, unspecified, E78.9 - Disorder of lipoprotein metabolism, unspecified, F10.20 - Alcohol dependence, uncomplicated, I10 - Essential (primary) hypertension, J44.9 - Chronic obstructive pulmonary disease, unspecified, K21.9 - Gastro-esophageal reflux disease without esophagitis, M15.9 - Polyosteoarthritis, unspecified, N32.81 - Overactive bladder, R79.89 - Other specified abnormal findings of blood chemistry, Z99.89 - Dependence on other enabling machines and devices Comprehensive Met. Panel Today D50.9 - Iron deficiency anemia, unspecified, E78.9 - Disorder of lipoprotein metabolism, unspecified, F10.20 - Alcohol dependence, uncomplicated, I10 - Essential (primary) hypertension, J44.9 - Chronic obstructive pulmonary disease, unspecified, K21.9 - Gastro-esophageal reflux disease without esophagitis, M15.9 - Polyosteoarthritis, unspecified, N32.81 - Overactive bladder, R79.89 - Other specified abnormal findings of blood chemistry, Z99.89 - Dependence on other enabling machines and devices LDL Cholesterol Direct Today D50.9 - Iron deficiency anemia, unspecified, E78.9 - Disorder of lipoprotein metabolism, unspecified, F10.20 - Alcohol dependence, uncomplicated, I10 - Essential (primary) hypertension, J44.9 - Chronic obstructive pulmonary disease, unspecified, K21.9 - Gastro-esophageal reflux disease without esophagitis, M15.9 - Polyosteoarthritis, unspecified, N32.81 - Overactive bladder, R79.89 - Other specified abnormal findings of blood chemistry, Z99.89 - Dependence on other enabling machines and devices Medications: New clotrimazole 10 mg mucous membrane TID 21 tabs 0RF 7 days B37.0 - Candidal stomatitis Changed From amlodipine 10 mg PO DAILY 90 tabs 0RF To amlodipine 5 mg PO DAILY 90 tabs 0RF
[2024-05-04 08:52] VITALS: BP 106/58; PULSE 106; RESP 16; TEMP 36.5; O2SAT 96; BMI 28.0
== END 2024-05-04 09:11 | disposition home or self-care (01) ==
LOC: HO.HMCC 08:45
PROVIDERS: PCP Internal Medicine; Visit Provider Internal Medicine
DX: I10 Essential (primary) hypertension (principal); J44.9 Chronic obstructive pulmonary disease, unspecified; F10.20 Alcohol dependence, uncomplicated; B37.0 Candidal stomatitis; Z79.52 Long term (current) use of systemic steroids; E78.9 Disorder of lipoprotein metabolism, unspecified; K21.9 Gastro-esophageal reflux disease without esophagitis; N32.81 Overactive bladder; D50.9 Iron deficiency anemia, unspecified; R79.89 Other specified abnormal findings of blood chemistry; Z99.89 Dependence on other enabling machines and devices; M15.9 Polyosteoarthritis, unspecified

== ENCOUNTER 2024-05-04 08:44 | Outpatient (REF) | payer MEDICARE, MEDICAID, SELFPAY ==
[2024-05-04 10:02] LABS: MANUAL DIFF FLAG NO
[2024-05-04 10:23] LABS: Basophils Absolute Auto 0.1 X10*3/uL (0.0-0.2); Basophils Percent Auto 0.5 % (0-2); Eosinophils Absolute Auto 0.2 X10*3/uL (0.0-0.4); Eosinophils Percent Auto 1.6 % (0-4); Hematocrit 31.6 % (37.0-47.0); Hemoglobin 9.7 g/dl (12.0-16.0); Imm Gran Abs Auto 0.16 X10*3/uL (0.00-0.03); Imm Gran Pct Auto 1.3 % (0.0-0.4); Lymphocytes Absolute Auto 3.6 X10*3/uL (1.2-4.9); Mean Corpuscular HGB Conc 30.7 g/dl (31.0-35.0); Mean Corpuscular Hemoglobin 22.2 pg (27.0-33.0); Mean Corpuscular Volume 72.3 fL (80.0-98.0); Mean Platelet Volume 9.8 fL (9.4-12.3); Monocytes Percent Auto 8.3 % (2-11); Neutrophils Absolute Auto 7.3 x10*3/uL (2.0-8.3); Neutrophils Percent Auto 59.3 % (45-73); Platelet Count 530 X10*3/uL (160-400); Red Blood Count 4.37 X10*6/uL (4.20-5.50); Red Cell Distribution Width 16.4 % (11.0-16.0); White Blood Count 12.2 X10*3/uL (4.8-10.8)
[2024-05-04 11:04] LABS: Alanine Aminotransferase 18 U/L (0-31); Albumin Level 3.8 g/dL (3.5-5.0); Alkaline Phosphatase 193 U/L (39-117); Anion Gap 13 (12-20); Aspartate Amino Transferase 24 U/L (5-31); Bilirubin Total 0.3 mg/dL (0.0-1.0); Blood Urea Nitrogen 11 mg/dL (9-16); Calcium 9.3 mg/dL (8.4-10.2); Carbon Dioxide 25 mmol/L (22-29); Chloride 107 mmol/L (96-108); Estimated Glomerular Filt Rate > 60; Glucose Random 106 mg/dL (60-115); Sodium 141 mmol/L (135-145); Total Protein 7.4 g/dL (6.5-8.0)
[2024-05-05 08:48] LABS: LDL Cholesterol Direct 74 mg/dL (<100)
== END 2024-05-04 08:45 | disposition home or self-care (01) ==
LOC: HO.HMGCLDS 08:44
PROVIDERS: PCP Internal Medicine; Visit Provider Internal Medicine
DX: I10 Essential (primary) hypertension (principal); B37.0 Candidal stomatitis; E78.9 Disorder of lipoprotein metabolism, unspecified; K21.9 Gastro-esophageal reflux disease without esophagitis; J44.9 Chronic obstructive pulmonary disease, unspecified; N32.81 Overactive bladder; D50.9 Iron deficiency anemia, unspecified; R79.89 Other specified abnormal findings of blood chemistry; M15.9 Polyosteoarthritis, unspecified; F10.20 Alcohol dependence, uncomplicated; Z79.52 Long term (current) use of systemic steroids; Z79.899 Other long term (current) drug therapy; Z99.89 Dependence on other enabling machines and devices
CPT/HCPCS: 36415; 80053; 83721; 85025; 96127; 99212

== ENCOUNTER 2024-05-19 06:40 | Outpatient (REF) | payer MEDICARE, MEDICAID, SELFPAY ==
[2024-05-19 10:18] LABS: MANUAL DIFF FLAG NO
[2024-05-19 10:24] LABS: Basophils Absolute Auto 0.1 X10*3/uL (0.0-0.2); Basophils Percent Auto 0.8 % (0-2); Eosinophils Absolute Auto 0.2 X10*3/uL (0.0-0.4); Eosinophils Percent Auto 1.6 % (0-4); Hematocrit 31.7 % (37.0-47.0); Hemoglobin 9.1 g/dl (12.0-16.0); Imm Gran Abs Auto 0.09 X10*3/uL (0.00-0.03); Imm Gran Pct Auto 0.8 % (0.0-0.4); Lymphocytes Percent Auto 26.4 % (20-40); Mean Corpuscular HGB Conc 28.7 g/dl (31.0-35.0); Mean Corpuscular Hemoglobin 21.8 pg (27.0-33.0); Mean Corpuscular Volume 75.8 fL (80.0-98.0); Mean Platelet Volume 10.4 fL (9.4-12.3); Monocytes Absolute Auto 1.1 X10*3/uL (0.1-1.2); Neutrophils Absolute Auto 6.9 x10*3/uL (2.0-8.3); Neutrophils Percent Auto 60.4 % (45-73); Platelet Count 513 X10*3/uL (160-400); Red Blood Count 4.18 X10*6/uL (4.20-5.50); Red Cell Distribution Width 20.5 % (11.0-16.0); White Blood Count 11.4 X10*3/uL (4.8-10.8)
== END 2024-05-19 06:41 | disposition home or self-care (01) ==
LOC: HO.HMGCLDS 06:40
PROVIDERS: PCP Internal Medicine; Visit Provider Internal Medicine
DX: D50.9 Iron deficiency anemia, unspecified (principal)
CPT/HCPCS: 36415; 85025

== ENCOUNTER 2024-06-01 09:36 | Outpatient (AMB) | payer MEDICARE, MEDICAID, SELFPAY ==
[2024-06-01 09:38] VITALS: BP 110/58; PULSE 97; O2SAT 94; BMI 28.0
--- NOTE | 2024-06-01 09:38 | A.OFFVIS_ITS ---
Vital Signs 06/01/24 09:38 Height 5 ft 4 in Weight 163 lb 2.273 oz BMI 28.0 BP 110/58 L Blood Pressure Location Lt brachial Position Sitting Pulse 97 Pulse Source Pulse Oximeter Pulse Oximetry (%) 94 Oxygen Delivery Method Room Air Intake Visit Reasons: COPD Intake Note: pt is here for follow up and states she is not using nebulizer as much due to mouth issue that is causing some burning of tongue and no taste or bad taste. Allergies No Known Allergies Allergy (Verified 06/01/24 09:55) Medication List - Last Reconciled 06/01/24 by Demarco Hilton MD albuterol sulfate 90 mcg/actuation (ProAir HFA) 1 inh inhalation QID PRN 30 days amlodipine 5 mg PO DAILY Breo Ellipta 200-25 mcg/dose (fluticasone furoate-vilanterol) 1 inh inhalation DAILY 30 days NS clotrimazole 10 mg mucous membrane TID 7 days ferrous sulfate 324 mg PO BID 90 days ipratropium-albuterol 0.5 mg-3 mg(2.5 mg base)/3 mL 3 mL inhalation TID losartan 50 mg PO DAILY omeprazole 40 mg PO DAILY prednisone 5 mg PO .2 x week simvastatin 40 mg PO DAILY 90 days Do you need a note to return to daycare/school/sports/work: No HPI HPI COPD: Details: This 84 years old very pleasant female comes for 4 months follow-up, Breathing has been fairly stable except in the last few weeks she is getting more short of breath on exertion. She has had no recent respiratory infection. She is now using Breo 200-251 inhalation daily, and needs to use albuterol only once in a while. She does have a nebulizer at home and has been using ipratropium-albuterol solution Q 4-6 hours p.r.n.. Lately she has had a small ulcer on the tongue , with loss of taste and is not using the nebulizer as much. Patient was having trouble in getting the inhalers such as Dulera on which she used to be, so was started on prednisone 5 mg twice a week for steroids effect. She still taking it regularly. I noticed that her color is pale and recent CBC showed that her hemoglobin has fallen down to 9 Gram again. She is on iron supplements, and omeprazole, and denies any obvious bleeding. But she does have a few purpuric spots on the right forearm skin. [facility] Medical History Dyspnea on exertion Influenza vaccination declined COVID-19 vaccination declined Frequency of micturition Tachycardia Ex-smoker Polyuria Chronic GERD Lipid disorder COPD, severe Hypertension Surgical History Hx of cataract extraction Family History Father HTN (hypertension) Mother No problems noted. Brother No problems noted. Son No problems noted. Son No problems noted. Daughter No problems noted. Daughter No problems noted. Social History Housing: House Alcohol intake: current Alcohol intake frequency: a few times a week Patient Tobacco Use Status: Former Tobacco user Tobacco use type: Cigarette Years Smoked: 60 years e-Cigarette/Vaping Use: Never Used Second Hand Smoke Exposure: No service: No Current occupational status: retired Cognitive needs: No Hearing needs: No Vision needs: Yes Review of Systems Const All systems reviewed & are unremarkable except as noted in HPI and below Eyes Reports no additional complaints ENT Reports no additional complaints Card Denies chest pain, Denies irregular heart rhythm, Denies leg edema and Reports dyspnea on exertion Resp Reports as per HPI and Reports dyspnea on exertion GI Reports heartburn (Being treated with omeprazole) Reports no additional complaints Musc Reports back pain (Mild) Skin/Breast Reports system reviewed and no additional complaints, except as documented Neuro Reports no additional complaints Psych Reports no additional complaints Physical Exam Vital Signs: Last Vital Signs Pulse 97 06/01/24 09:38 BP 110/58 L 06/01/24 09:38 Pulse Ox 94 06/01/24 09:38 Oxygen Delivery Method Room Air 06/01/24 09:38 BMI result Body Mass Index 28.0 Const Other: Complexion is somewhat pale. General: comfortable, no acute distress, alert and awake Orientation/consciousness: patient oriented x3 HEENT Head: Yes normal to inspection General nose exam: No nasal polyps present and No nasal discharge present Face and sinus: Yes sinuses nontender Mouth: oropharynx normal and other (There is a small ulcer on the right lateral border of the tongue) Throat: Yes posterior oropharynx normal Eyes General: appearance normal, both eyes and all related structures Neck Neck: Yes normal visual inspection, Yes no lymphadenopathy, Yes trachea midline and Yes no JVD Thyroid: Thyroid normal Chest Chest palpation & inspection: normal inspection of the chest, normal palpation of entire chest wall and no tenderness Resp Other: Percussion note hyper resonant, breath sounds are distant with prolonged expiratory phase. No wheezes rhonchi or Creps are heard today . Cardio Palpation: normal PMI Rate: regular rate Rhythm: regular rhythm Heart sounds: no gallops and no murmurs GI Palpation (GI): Soft to palpation, nontender, No hepatosplenomegaly present and no masses Auscultation: normal bowel sounds Back/Spine/Pelvis Thoracic/Lumbar Spine: thoracic and lumbar spine normal to inspection and thoraco-lumbar ROM limited Skin General skin exam: no rashes or lesions noted Neuro General: patient oriented x3 and no focal motor deficits Cranial nerves: Yes CN's II-XII intact bilaterally Extrem General: Yes normal to inspection, Yes no clubbing, cyanosis or edema and Yes no calf tenderness Psych Appearance: grossly normal and well kempt Speech and movement: Normal speech and movement present Assessment & Plan Assessment & Plan (1) COPD, severe: Comment: SHE HAS RATHER SEVERE CHRONIC OBSTRUCTIVE PULMONARY DISEASE, WITH PARTIAL REVERSIBILITY INDICATING MORE LIKE ASTHMA/COPD OVERLAP SYNDROME. She is doing fairly well on her current regimen. She was on prednisone 5 mg twice a week to compensate for not using inhaled steroids. However now she does use Breo Ellipta 200-251 inhalation daily, so I would stop the prednisone. Code(s): J44.9 - Chronic obstructive pulmonary disease, unspecified Category: Medical Plan: DC prednisone. Continue Breo Ellipta 200-251 inhalation daily OK to use ipratropium-albuterol solution in the nebulizer Q 4-6 hours p.r.n.. Also has albuterol HFA on hand to use 2 puffs Q 6 hours p.r.n. when outdoors. She is advised to rinse the mouth after using Breo, And because there is a small ulcer on the right border of the tongue she should actually use mouth washes 2 to 3 times a day regularly. (2) Ex-smoker: Comment: SHE QUIT 6 YEARS AGO AFTER SMOKING 1 PACK A DAY FOR 60 YEARS. HAS FELT MUCH BETTER SINCE SHE QUIT Code(s): Z87.891 - Personal history of nicotine dependence Category: Social Hx Plan: Commended for not going back to smoking (3) Current chronic use of systemic steroids: Comment: Patient has been on prednisone 5 mg but only twice a week. Code(s): Z79.52 - group home (current) use of systemic steroids Category: Medical Plan: Now that she does get Breo Ellipta, she does not need oral steroids so prednisone is being stopped. (4) Anemia: Comment: PATIENT HAD IRON-DEFICIENCY ANEMIA, HAS BEEN ON IRON SUPPLEMENTS . ANEMIA WAS TOTALLY CORRECTED . NOW SHE HAS DEVELOPED ANEMIA AGAIN AND HER CURRENT HEMOGLOBIN IS DOWN TO 9GMs Code(s): D64.9 - Anemia, unspecified Category: Medical Plan: PATIENT ADVISED TO FOLLOW-UP WITH PRIMARY CARE PHYSICIAN ABOUT HER ANEMIA. CONTINUE TAKING IRON SUPPLEMENTS AND ALSO OMEPRAZOLE. MAY NEED REFERRAL TO SCHOOL OCCUPATIONAL THERAPIST FOR FULL EVALUATION. Coding Level of Care Code Est Pt Level 3 (05581) Diagnoses COPD, severe J44.9 Ex-smoker Z87.891 Current chronic use of systemic steroids Z79.52 Anemia D64.9
== END 2024-06-01 09:55 | disposition home or self-care (01) ==
PROVIDERS: PCP Internal Medicine; Visit Provider Internal Medicine
DX: J44.9 Chronic obstructive pulmonary disease, unspecified (principal); Z87.891 Personal history of nicotine dependence; Z79.52 Long term (current) use of systemic steroids; D64.9 Anemia, unspecified
CPT/HCPCS: 99213

== ENCOUNTER → 2024-06-01 09:36 | Outpatient (BNVA) | payer MEDICARE, MEDICAID, SELFPAY | PROVIDERS: PCP Internal Medicine; Visit Provider Internal Medicine | DX: J44.9 Chronic obstructive pulmonary disease, unspecified (principal); D64.9 Anemia, unspecified; Z79.52 Long term (current) use of systemic steroids; Z87.891 Personal history of nicotine dependence | CPT/HCPCS: 99212 ==

== ENCOUNTER → 2024-06-08 09:42 | Outpatient (BNV) | payer MEDICARE, MEDICAID, SELFPAY | PROVIDERS: PCP Internal Medicine; Referring Provider Internal Medicine; Visit Provider Internal Medicine | DX: D50.9 Iron deficiency anemia, unspecified (principal) | CPT/HCPCS: 99204; G2211 ==

== ENCOUNTER 2024-07-09 08:49 | Outpatient (AMB) | payer MEDICARE, MEDICAID, SELFPAY ==
--- NOTE | 2024-07-09 08:52 | A.OFFPC_ITS ---
Vital Signs 07/09/24 08:53 Height 5 ft 4 in Weight 161 lb BMI 27.6 BP 102/62 Blood Pressure Location Rt brachial Position Sitting Pulse 92 Pulse Source Pulse Oximeter Pulse Oximetry (%) 96 Oxygen Delivery Method Room Air Intake Visit Reasons: 2 months f/up Accompanied by: Self / Same As Patient Allergies No Known Allergies Allergy (Verified 06/01/24 09:55) Medication List - Last Reconciled 07/09/24 by Flavio Bundy MD amlodipine 5 mg PO DAILY Breo Ellipta 200-25 mcg/dose (fluticasone furoate-vilanterol) 1 inh inhalation DAILY 30 days NS ferrous sulfate 324 mg PO BID 90 days ipratropium-albuterol 0.5 mg-3 mg(2.5 mg base)/3 mL 3 mL inhalation TID losartan 50 mg PO DAILY omeprazole 40 mg PO DAILY simvastatin 40 mg PO DAILY 90 days Tobacco use date assessed: 07/09/24 Fall risk assessment: No Falls in past year Last assessed Fall Risk: 07/09/24 Dental Screening Dental Screen Date: 07/09/24 Did you have a dental visit in the last 12 months?: No Did you have a dental problem in the last 6 months where you did not have access to dental care?: No Was dental information given to patient?: Patient declined HPI 2 months f/up HPI Details History - The patient is an 84-year-old female w ith a history of severe COPD, dependent on walker for ambulation, GERD, hypertension, iron-deficiency anemia, lipid disorder presenting with muscle cramps and ongoing issues with her sense of taste. - The patient reports experiencing muscl e cramps right across unspecified areas and sometimes in her leg, which she describes as excruciating. These cramps occur a few times a week and sometimes a few times a day. The patient indicates that brth-zut-jtywjoo leg cramp medication provides relief, albeit temporarily, and mentions a homeopathic remedy . . - The patient complains of a decreased s ense of taste, persisting since the last visit. She was instructed to rinse with salt water and Listerine. She reports this issue as sometimes present, with occurrences of a burning tongue, especially during rinsing. - The patient mentions feeling lighthead ed and dizzy upon standing, though denies such symptoms while seated, possibly related to low blood pressure seen today. - Past medical history includes anemia w ith no current treatments discussed for B12 or iron supplementation patient is established with Hematology. Her blood pressure medication was adjusted at the last visit due to low readings. - She experiences persistent dysgeusia, primarily attributed to the use of inhalers in the past. Her inhaler use has been adjusted independently by switching to Breo, which she feels has improved her condition. Established with Pulmonary [facility] whom she is seeing only once a year . - GERD is stable Problem List - Dysgeusia - Low Blood Pressure (Hypotension) - Hypertension - lipid disorder - chronic GERD - risk for fall Review of Systems - General: No fever no chills - Neurological: No headaches no dizziness - Ear nose throat: No sore throat no hearing difficulty no ear pain - Cardiovascular: No syncope, no chest pain, no palpitations - Gastrointestinal: No nausea vomiting or diarrhea Patient Instructions - Stop taking amlodipine temporarily as instructed. - Continue taking losartan as directed. - Take magnesium supplements as prescrib ed, one or two at night. - Continue to rinse with salt water to a ddress taste issues. - Monitor blood pressure at home and rec ord the readings. - Bring the blood pressure monitor to e next appointment for accuracy verification. Review of Systems - General: No fever no chills - Neurological: No headaches no dizziness - Ear nose throat: No sore throat no hearing difficulty no ear pain - Cardiovascular: No syncope, no chest pain, no palpitations - Gastrointestinal: No nausea vomiting or diarrhea - Endocrine: No polyuria polydipsia no heat intolerance - Genitourinary: No dysuria , no blood in urine Physical Exam General: No acute distress HEENT: Burning sensation on the tongue, but no acute findings Neck: Supple Respiratory system: Able to talk in full sentences, no audible wheeze cardiovascular: S1-S2 regular in rate and rhythm Gastrointestinal: No pain Extremities: Cramps noted in legs and fingers, arthritic changes present in small joints of hands 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 Brother No problems noted. Son No problems noted. Son No problems noted. Daughter No problems noted. Daughter No problems noted. Maternal Grandmother Cancer Father Diabetes Social History Household Members: None Housing: House Alcohol intake: current Alcohol intake frequency: a few times a week Patient Tobacco Use Status: Former Tobacco user Tobacco use type: Cigarette Years Smoked: 60 years e-Cigarette/Vaping Use: Never Used Second Hand Smoke Exposure: No service: No Current occupational status: retired Cognitive needs: No Hearing needs: No Vision needs: Yes Questionnaire Thrive Questionnaire Date Thrive assessed: 07/09/24 I am a: Patient What is your living situation today?: I have a place to live, but I am worried about losing it in the future Within the past 12 months, did the food you bought not last and you didn't have the money to get more?: Never true Within the past 12 months, did you worry whether your food would run out before you got money to buy more?: Never true Do you have trouble paying for medicines?: No Do you have trouble getting transportation to medical appointments?: Yes Do you have trouble paying your heating and electricity bill?: No Do you have trouble taking care of your child, family member or friend?: No Do you have trouble with day-to-day activities such as bathing, preparing meals, shopping, managing finances, etc.?: Yes Are you currently unemployed and looking for a job?: No Are you interested in more education?: No Please select the resources that you would like help with: Transportation Currently or been in a relationship where the following occur: I choose not to answer THRIVE Score: 2 HEMANT-7 AMB Questionnaire HEMANT-7 Date HEMANT - 7 assessed: 07/09/24 Feeling nervous, anxious, or on edge: 1 = Several days Not being able to stop or control worryin = Not at all Worrying too much about different things: 0 = Not at all Trouble relaxin = Not at all Being so restless that it is hard to sit still: 0 = Not at all Becoming easily annoyed or irritable: 0 = Not at all Feeling afraid as if something awful might happen: 0 = Not at all Total HEMANT-7 score (0-4 normal; 5-9 mild; 10-14 moderate; 15-21 severe): 1 Source: Developed by Drs. Bradford Thakkar, Jen Franz, Jan Miranda and colleagues, with an educational andrez from [employer]. HEMANT-7 Assessment Billing HEMANT-7 Assessment Tool: HEMANT-7 Assessment 00205 Physical exam (Primary Care) Vital Signs: Last Vital Signs Pulse 92 07/09/24 08:53 BP 102/62 07/09/24 08:53 Pulse Ox 96 07/09/24 08:53 Oxygen Delivery Method Room Air 07/09/24 08:53 BMI result Body Mass Index 27.6 Tobacco/Smoking Status: Tobacco use Status Tobacco use date assessed 07/09/24 07/09/24 08:56 Patient Tobacco Use Status Former Tobacco user 07/09/24 08:56 Tobacco use type Cigarette 07/09/24 08:56 e-Cigarette/Vaping Use Never Used 07/09/24 08:56 Thrive Assessment: Date of Thrive Assessment Date Thrive assessed 07/09/24 07/09/24 08:56 Currently or been in a relationship where the following occur: I choose not to answer Coding Level of Care Code Est Pt Level 4 (54577) Complex EM visit Add On G2211 Diagnoses Hypertension, essential I10 Lipid disorder E78.9 Chronic GERD K21.9 COPD, severe J44.9 Overactive bladder N32.81 Iron deficiency anemia, unspecified iron deficiency anemia type D50.9 Iron deficiency anemia type: unspecified iron deficiency Uses roller walker Z99.89 Osteoarthritis involving multiple joints on both sides of body M15.9 Additional Codes HEMANT-7 Assessment Billing - HEMANT-7 Assessment Tool: HEMANT-7 Assessment 00053 ([id number]) Assessment & Plan Assessment & Plan (1) Hypertension, essential: Code(s): I10 - Essential (primary) hypertension Category: Medical (2) Lipid disorder: Code(s): E78.9 - Disorder of lipoprotein metabolism, unspecified Category: Medical (3) Chronic GERD: Code(s): K21.9 - Gastro-esophageal reflux disease without esophagitis Category: Medical (4) COPD, severe: Code(s): J44.9 - Chronic obstructive pulmonary disease, unspecified Category: Medical (5) Overactive bladder: Code(s): N32.81 - Overactive bladder Category: Medical (6) Iron deficiency anemia: Code(s): D50.9 - Iron deficiency anemia, unspecified Category: Medical Qualifiers: Iron deficiency anemia type: unspecified iron deficiency Qualified Code(s): D50.9 - Iron deficiency anemia, unspecified (7) Uses roller walker: Code(s): Z99.89 - Dependence on other enabling machines and devices Category: Medical (8) Osteoarthritis involving multiple joints on both sides of body: Code(s): M15.9 - Polyosteoarthritis, unspecified Category: Medical Plan History - The patient is an 84-year-old female with a history of severe COPD, dependent on walker for ambulation, GERD, hypertension, iron-deficiency anemia, lipid disorder presenting with muscle cramps and ongoing issues with her sense of taste. - The patient reports experiencing muscle cramps right across unspecified areas and sometimes in her leg, which she describes as excruciating. These cramps occur a few times a week and sometimes a few times a day. The patient indicates that qkzq-ofv-rzarfkc leg cramp medication provides relief, albeit temporarily, and mentions a homeopathic remedy . . - The patient complains of a decreased sense of taste, persisting since the last visit. She was instructed to rinse with salt water and Listerine. She reports this issue as sometimes present, with occurrences of a burning tongue, especially during rinsing. - The patient mentions feeling lightheaded and dizzy upon standing, though denies such symptoms while seated, possibly related to low blood pressure seen today. - Past medical history includes anemia with no current treatments discussed for B12 or iron supplementation patient is established with Hematology. Her blood pressure medication was adjusted at the last visit due to low readings. - She experiences persistent dysgeusia, primarily attributed to the use of inhalers in the past. Her inhaler use has been adjusted independently by feng pettit Breo, which she feels has improved her condition. Established with Pulmonary [facility] whom she is seeing only once a year . - GERD is stable Problem List - Dysgeusia - Low Blood Pressure (Hypotension) - Hypertension - lipid disorder - chronic GERD - risk for fall Review of Systems - General: No fever no chills - Neurological: No headaches no dizziness - Ear nose throat: No sore throat no hearing difficulty no ear pain - Cardiovascular: No syncope, no chest pain, no palpitations - Gastrointestinal: No nausea vomiting or diarrhea Patient Instructions - Stop taking amlodipine temporarily as instructed. - Continue taking losartan as directed. - Take magnesium supplements as prescribed, one or two at night. - Continue to rinse with salt water to address taste issues. - Monitor blood pressure at home and record the readings. - Bring the blood pressure monitor to the next appointment for accuracy verification. Medications: New magnesium glycinate 100 mg PO .QHS 90 days 90 caps 3RF On Hold amlodipine Hold Comment: Doctor's Order 5 mg PO DAILY 90 tabs 0RF
[2024-07-09 08:53] VITALS: BP 102/62; PULSE 92; O2SAT 96; BMI 27.6
== END 2024-07-09 09:17 | disposition home or self-care (01) ==
LOC: HO.HMCC 08:50
PROVIDERS: PCP Internal Medicine; Visit Provider Internal Medicine
DX: I10 Essential (primary) hypertension (principal); E78.9 Disorder of lipoprotein metabolism, unspecified; K21.9 Gastro-esophageal reflux disease without esophagitis; J44.9 Chronic obstructive pulmonary disease, unspecified; N32.81 Overactive bladder; D50.9 Iron deficiency anemia, unspecified; Z99.89 Dependence on other enabling machines and devices; M15.9 Polyosteoarthritis, unspecified

== ENCOUNTER → 2024-07-09 08:49 | Outpatient (BNVA) | payer MEDICARE, MEDICAID, SELFPAY | PROVIDERS: PCP Internal Medicine; Visit Provider Internal Medicine | DX: I10 Essential (primary) hypertension (principal); E78.9 Disorder of lipoprotein metabolism, unspecified; K21.9 Gastro-esophageal reflux disease without esophagitis; J44.9 Chronic obstructive pulmonary disease, unspecified; N32.81 Overactive bladder; D50.9 Iron deficiency anemia, unspecified; M15.9 Polyosteoarthritis, unspecified; Z99.89 Dependence on other enabling machines and devices | CPT/HCPCS: 96127; 99212 ==

== ENCOUNTER 2024-10-14 09:04 | Outpatient (AMB) | payer MEDICARE, MEDICAID, SELFPAY ==
--- NOTE | 2024-10-14 09:10 | MHC.OFFVIS ---
Vital Signs 10/14/24 09:11 Height 5 ft 4 in Weight 159 lb 13.362 oz BMI 27.4 BP 122/70 Blood Pressure Location Lt radial Position Sitting Pulse 75 Pulse Source Pulse Oximeter Pulse Oximetry (%) 97 Oxygen Delivery Method Room Air Intake Visit Reasons: COPD Intake Note: pt is here for follow up and states she is still dealing with the mouth issue, nystatin did not help, and liserine make her mouth burn, food taste bad. This is preventing her from using her nebulizer. breathing is stable. Thrill Performer Required: No Allergies No Known Allergies Allergy (Verified 10/14/24 09:29) Medication List - Last Reconciled 10/14/24 by Demarco Hilton MD Breo Ellipta 200-25 mcg/dose (fluticasone furoate-vilanterol) 1 inh inhalation DAILY 30 days NS cyanocobalamin (vitamin B-12) (Vitamin B-12) 1,000 mcg PO DAILY ferrous sulfate 324 mg PO BID 90 days ipratropium-albuterol 0.5 mg-3 mg(2.5 mg base)/3 mL 3 mL inhalation TID losartan 50 mg PO DAILY magnesium glycinate 100 mg PO .QHS 90 days nystatin 5 mL PO TID PRN omeprazole 40 mg PO DAILY simvastatin 40 mg PO DAILY 90 days Do you need a note to return to daycare/school/sports/work: No HPI HPI COPD: Details: Pebbles is 84 years old very pleasant female, comes follow-up, She has severe obstructive airway disorder, due to her past history of smoking. Currently using Breo Ellipta 200-251 inhalation daily. And basically her breathing remains very stable she has not required to use the nebulize. She continues to have some discomfort in the oral cavity, has use nystatin for possibility of thrush but it did not help. So nystatin was discontinued, She was advised just use warm water and salt or put some Listerine in that, she say did it has not helped. Her main problem at this time is ongoing anemia with Hb= 9 g . She has iron-deficiency and has been on iron supplements she is also on B12 injections. Has seen [employer] Dr. Miller , who suggested that she should have colonoscopy as well as upper endoscopy, but patient refused to have any interventional procedure. Now she is scheduled to have CT scan of the chest as well as CT scan of the abdomen, just to check for any neoplastic lesion. She came today in good spirits , she walks with a walker, she is happy in the apartment building where she is living in [facility] Medical History Dyspnea on exertion Influenza vaccination declined COVID-19 vaccination declined Frequency of micturition Tachycardia Ex-smoker Polyuria Chronic GERD Lipid disorder COPD, severe Hypertension Surgical History Hx of cataract extraction Family History Father HTN (hypertension) Enlarged heart Mother No problems noted. Brother No problems noted. Son No problems noted. Son No problems noted. Daughter No problems noted. Daughter No problems noted. Maternal Grandmother Cancer Father Diabetes Social History Household Members: None Housing: House Alcohol intake: current Alcohol intake frequency: a few times a week Patient Tobacco Use Status: Former Tobacco user Tobacco use type: Cigarette Years Smoked: 60 years e-Cigarette/Vaping Use: Never Used Second Hand Smoke Exposure: No service: No Current occupational status: retired Cognitive needs: No Hearing needs: No Vision needs: Yes Review of Systems Const All systems reviewed & are unremarkable except as noted in HPI and below Eyes Reports no additional complaints ENT Reports no additional complaints Card Denies chest pain, Denies irregular heart rhythm, Denies leg edema and Reports dyspnea on exertion Resp Reports as per HPI and Reports dyspnea on exertion GI Reports heartburn (Being treated with omeprazole) Reports no additional complaints Musc Reports back pain (Mild) Skin/Breast Reports system reviewed and no additional complaints, except as documented Neuro Reports no additional complaints Psych Reports no additional complaints Physical Exam Vital Signs: Last Vital Signs Pulse 75 10/14/24 09:11 BP 122/70 10/14/24 09:11 Pulse Ox 97 10/14/24 09:11 Oxygen Delivery Method Room Air 10/14/24 09:11 BMI result Body Mass Index 27.4 Const Other: Complexion is somewhat pale. General: comfortable, no acute distress, alert and awake Orientation/consciousness: patient oriented x3 HEENT Head: Yes normal to inspection General nose exam: No nasal polyps present and No nasal discharge present Face and sinus: Yes sinuses nontender Mouth: oropharynx normal and other (There is a small ulcer on the right lateral border of the tongue) Throat: Yes posterior oropharynx normal Eyes General: appearance normal, both eyes and all related structures Neck Neck: Yes normal visual inspection, Yes no lymphadenopathy, Yes trachea midline and Yes no JVD Thyroid: Thyroid normal Chest Chest palpation & inspection: normal inspection of the chest, normal palpation of entire chest wall and no tenderness Resp Other: Percussion note hyper resonant, breath sounds are distant with prolonged expiratory phase. No wheezes rhonchi or Creps are heard today . Cardio Palpation: normal PMI Rate: regular rate Rhythm: regular rhythm Heart sounds: no gallops and no murmurs GI Palpation (GI): Soft to palpation, nontender, No hepatosplenomegaly present and no masses Auscultation: normal bowel sounds Back/Spine/Pelvis Thoracic/Lumbar Spine: thoracic and lumbar spine normal to inspection and thoraco-lumbar ROM limited Skin General skin exam: no rashes or lesions noted Neuro General: patient oriented x3 and no focal motor deficits Cranial nerves: Yes CN's II-XII intact bilaterally Extrem General: Yes normal to inspection, Yes no clubbing, cyanosis or edema and Yes no calf tenderness Psych Appearance: grossly normal and well kempt Speech and movement: Normal speech and movement present Assessment & Plan Assessment & Plan (1) COPD, severe: Comment: SHE HAS RATHER SEVERE CHRONIC OBSTRUCTIVE PULMONARY DISEASE, WITH PARTIAL REVERSIBILITY INDICATING MORE LIKE ASTHMA/COPD OVERLAP SYNDROME. She is doing fairly well on her current regimen. She was on prednisone 5 mg twice a week to compensate for not using inhaled steroids. However now she does use Breo Ellipta 200-251 inhalation daily, so prednisone has been stopped. Code(s): J44.9 - Chronic obstructive pulmonary disease, unspecified Category: Medical Plan: Continue to use Breo Ellipta 200-251 inhalation daily Ipratropium-albuterol solution in the nebulizer Q 4-6 hours p.r.n. for respiratory distress. (2) Ex-smoker: Comment: SHE QUIT 6 YEARS AGO AFTER SMOKING 1 PACK A DAY FOR 60 YEARS. HAS FELT MUCH BETTER SINCE SHE QUIT Code(s): Z87.891 - Personal history of nicotine dependence Category: Social Hx Plan: Commended for not smoking. Her age is beyond annual low-dose CT scan program She will be having a CT scan of the chest in the next few weeks, as ordered by Dr. Miller (3) Anemia: Comment: PATIENT HAD IRON-DEFICIENCY ANEMIA, HAS BEEN ON IRON SUPPLEMENTS . ANEMIA WAS TOTALLY CORRECTED . NOW SHE HAS DEVELOPED ANEMIA AGAIN AND HER CURRENT HEMOGLOBIN IS DOWN TO 9GMs Code(s): D64.9 - Anemia, unspecified Category: Medical Plan: Patient has been seen by Hematology. She is back on iron supplements as well as on B12 injections. Medications: Changed From nystatin swish and swallow 5 mL PO TID 210 mL 1RF THRUSH 14 days To nystatin swish and swallow 5 mL PO TID PRN Coding Level of Care Code Est Pt Level 3 (49303) Diagnoses COPD, severe J44.9 Ex-smoker Z87.891 Anemia D64.9
[2024-10-14 09:11] VITALS: BP 122/70; PULSE 75; O2SAT 97; BMI 27.4
== END 2024-10-14 09:31 | disposition home or self-care (01) ==
LOC: HO.HPS 09:05
PROVIDERS: PCP Internal Medicine; Visit Provider Internal Medicine
DX: J44.9 Chronic obstructive pulmonary disease, unspecified (principal); Z87.891 Personal history of nicotine dependence; D64.9 Anemia, unspecified
CPT/HCPCS: 99213

== ENCOUNTER → 2024-10-14 09:04 | Outpatient (BNVA) | payer MEDICARE, MEDICAID, SELFPAY | PROVIDERS: PCP Internal Medicine; Visit Provider Internal Medicine | DX: J44.9 Chronic obstructive pulmonary disease, unspecified (principal); D64.9 Anemia, unspecified; Z87.891 Personal history of nicotine dependence; Z79.899 Other long term (current) drug therapy | CPT/HCPCS: 99212 ==

== ENCOUNTER 2024-11-03 08:40 | Outpatient (REF) | payer MEDICARE, MEDICAID, SELFPAY ==
[2024-11-03 13:07] LABS: MANUAL DIFF FLAG NO
[2024-11-03 13:15] LABS: Hematocrit 38.5 % (37.0-47.0); Hemoglobin 11.8 g/dl (12.0-16.0); Imm Gran Abs Auto 0.13 X10*3/uL (0.00-0.03); Imm Gran Pct Auto 1.3 % (0.0-0.4); Lymphocytes Absolute Auto 2.2 X10*3/uL (1.2-4.9); Mean Corpuscular HGB Conc 30.6 g/dl (31.0-35.0); Mean Corpuscular Hemoglobin 26.3 pg (27.0-33.0); Mean Corpuscular Volume 85.7 fL (80.0-98.0); NRBC Abs Auto 0.000 X10*3/uL (0.0-0.012); NRBC Pct Auto 0.0 /100WBC (0.0-0.2); Platelet Count 403 X10*3/uL (160-400); Red Blood Count 4.49 X10*6/uL (4.20-5.50); White Blood Count 9.8 X10*3/uL (4.8-10.8)
[2024-11-03 14:00] LABS: Alanine Aminotransferase 31 U/L (0-31); Albumin Level 4.2 g/dL (3.5-5.0); Alkaline Phosphatase 254 U/L (39-117); Anion Gap 13 (12-20); Aspartate Amino Transferase 34 U/L (5-31); Blood Urea Nitrogen 17 mg/dL (9-16); Calcium 9.7 mg/dL (8.4-10.2); Carbon Dioxide 28 mmol/L (22-29); Chloride 103 mmol/L (96-108); Estimated Glomerular Filt Rate > 60; Potassium 4.3 mmol/L (3.3-5.1); Sodium 140 mmol/L (135-145); Total Protein 7.1 g/dL (6.5-8.0)
[2024-11-03 14:25] LABS: Folate 7.6 ng/mL (> or = 4.0); Vitamin B12 1745 pg/mL (200-900)
[2024-11-03 14:26] LABS: Ferritin 21 ng/mL (10-250)
[2024-11-12 14:47] LABS: Vitamin D 25-OH, D2 <4 ng/mL; Vitamin D 25-OH, D3 18 ng/mL; Vitamin D 25-OH, Total 18 ng/mL (30-100)
== END 2024-11-03 08:41 | disposition home or self-care (01) ==
LOC: HO.HMGCLDS 08:40
PROVIDERS: PCP Internal Medicine; Visit Provider Internal Medicine
DX: J44.9 Chronic obstructive pulmonary disease, unspecified (principal); I10 Essential (primary) hypertension; E78.9 Disorder of lipoprotein metabolism, unspecified; R79.89 Other specified abnormal findings of blood chemistry; K21.9 Gastro-esophageal reflux disease without esophagitis; N39.41 Urge incontinence; D64.9 Anemia, unspecified; Z59.00 Homelessness unspecified; Z99.89 Dependence on other enabling machines and devices; Z79.899 Other long term (current) drug therapy; Z87.891 Personal history of nicotine dependence
CPT/HCPCS: 36415; 80053; 82306; 82607; 82728; 82746; 83721; 84443; 85025; 96127; 99212

== ENCOUNTER 2024-11-03 08:40 | Outpatient (AMB) | payer MEDICARE, MEDICAID, SELFPAY ==
[2024-11-03 08:48] VITALS: BP 108/68; PULSE 73; TEMP 36.7; O2SAT 97; BMI 27.6
--- NOTE | 2024-11-03 08:48 | A.OFFVIS_ITS ---
Intake Vital Signs 11/03/24 08:48 Height 5 ft 4 in Weight 161 lb BMI 27.6 BP 108/68 Blood Pressure Location Lt radial Position Sitting Pulse 73 Pulse Source Pulse Oximeter Temp 98.0 F Temp Source Oral Pulse Oximetry (%) 97 Intake Visit Reasons: swV Allergies No Known Allergies Allergy (Verified 11/03/24 08:51) Medication List - Last Reconciled 11/03/24 by Flavio Bundy MD Breo Ellipta 200-25 mcg/dose (fluticasone furoate-vilanterol) 1 inh inhalation DAILY 30 days NS cyanocobalamin (vitamin B-12) (Vitamin B-12) 1,000 mcg PO DAILY ferrous sulfate 324 mg PO BID 90 days losartan 50 mg PO DAILY magnesium glycinate 100 mg PO .QHS 90 days omeprazole 40 mg PO DAILY simvastatin 40 mg PO DAILY 90 days Do you need a note to return to daycare/school/sports/work: No HPI swV HPI Details History The patient is an 84-year-old female presenting for Medicare wellness visit and regular follow-up visit Memory issue: - Reports occasional forgetfulness, such as not remembering going through a community room. - Experiences moments of not recalling h ow she got to a certain place or performed an action. - Compares the onset of forgetfulness wi th her mother's history of similar symptoms. - Prefers to monitor the situation witho ut medication intervention for now. Medical History: - Asthma managed with Breo Ellipta inhal er. - Essential Hypertension managed with Chelsea castro. - Historical low Vitamin B12 level at 17 9 in July. - Hyperlipidemia managed with Simvastati n. - Gastroesophageal Reflux Disease manage d with Omeprazole. - Chronic Iron deficiency anemia noted b y improved hemoglobin levels to 11.5 with iron supplementation. Social History: - Resides independently in an apartment. - Previously used alcohol (beer) but cea sed consumption years ago. - Quit smoking; reported smoking a joint historically. - Engages in social activities like [employer] and involvement in a tenants? association. - Provides meal assistance to friends wi th chronic illnesses. - Limited fluid intake and frequent noct urnal urination. - Prefers not to medicate bladder issues due to past unsuccessful procedures. Family History: - Maternal history of forgetfulness. Problem List - Confusion - Dysgeusia related to inhaler use - Asthma - Essential Hypertension - Vitamin B12 deficiency - Hyperlipidemia - Gastroesophageal Reflux Disease - Iron deficiency anemia Diagnostic results - Labs: Hemoglobin improved to 11.5 with iron supplementation. - Labs: Previous low Vitamin B12 level a t 179. - Labs: Iron level at 18, kidney functio ns noted to be stable. - Labs: Elevated liver enzyme necessitat ing recheck. [place] [facility] - Dr. Hilton (previous recommendations) - Dr. Mccarthy and Dr. Ramírez cardiol ogy Patient Instructions - Continue current medication regimen. - Monitor forgetfulness and report if sy mptoms worsen. - Follow-up on proposed blood tests to r e-evaluate liver enzymes and B12. - Increase fluid intake despite low cons umption habits. - Consider more regular social activitie s to maintain cognitive engagement. Follow-up 4 months Review of Systems General: No fever no chills neurological: No headaches no dizziness ear nose throat: No sore throat no hearing difficulty no ear pain cardiovascular: No syncope, no chest pain, no palpitations gastrointestinal: No nausea vomiting or diarrhea skin: No new complaints Physical Exam general: No acute distress HEENT: Mouth problem persists, food tastes terrible neck: Supple respiratory system: Able to talk in full sentences, no audible wheeze no stridor , baseline shortness a breath present cardiovascular: S1-S2 gastrointestinal: No pain extremities: Unable to stand up without touching anything [employer] WORK[employer]: Alert awake oriented x3 motor intact, balance impaired uses walker for ambulation skin: Normal turgor HPI Comments History of Present Illness Details AWV Medical/social history reviewed Past medical history reviewed [place] [facility] care / care team list updated Surgical/ hospitalization history reviewed Current medications including OTC and supplements reviewed Family history reviewed Tobacco controlled form updated Alcohol use form updated Illicit drug use in social history reviewed Current diagnosis of depression ?screening updated Appropriate PHQ 2/PHQ-9 completed . Vital signs reviewed Alcohol tobacco drug use reviewed and discussed . MMSE completed . ? Fall risk: ?Assessed Fall history: ?None Have you had any falls with injury in the past year?? No Have you had 2 or more falls in the past year?? No Fall risk assessment completed Home safety discussed with the patient Functional ability assessed and discussed and documented Activities of daily living reviewed and appropriate actions taken . HRA filled out by the patient and reviewed by provider and scanned . Appropriate written screening schedule established . Any health advise needed provided . Advance care planning discussed with the patient , necessary paperwork filled Examination IPPE/AWE: Balance failed Romberg failed Tandem walk failed walk-in turn failed rise from sit to stand failed . ?Hearing ?whisper test pass . Medication list reviewed, patient is stable on medications All other providers patient is seeing discussed and noted . [facility] Medical History Dyspnea on exertion Influenza vaccination declined COVID-19 vaccination declined Frequency of micturition Tachycardia Ex-smoker Polyuria Chronic GERD Lipid disorder COPD, severe Hypertension Surgical History Hx of cataract extraction Family History Father HTN (hypertension) Enlarged heart Mother No problems noted. Brother No problems noted. Son No problems noted. Son No problems noted. Daughter No problems noted. Daughter No problems noted. Maternal Grandmother Cancer Father Diabetes Social History Household Members: None Housing: House Alcohol intake: current Alcohol intake frequency: a few times a week Patient Tobacco Use Status: Former Tobacco user Tobacco use type: Cigarette Years Smoked: 60 years e-Cigarette/Vaping Use: Never Used Second Hand Smoke Exposure: No service: No Current occupational status: retired Cognitive needs: No Hearing needs: No Vision needs: Yes Questionnaire Medicare Wellness Checkup What is your age?: 80 or older What gender do you identify with?: female During the past 4 weeks, how much have you been bothered by emotional problems such as feeling anxious, depressed, irritable, sad or downhearted, and blue?: moderately During the past 4 weeks, has your physical & emotional health limited your social activities with family, friends, neighbors, or groups?: moderately During the past 4 weeks, how much bodily pain have you generally had?: no pain During the past 4 weeks, was someone available to help you if you needed & wanted help?: no, not at all During the past 4 weeks, what was the hardest physical activity you could do for at least 2 minutes?: very light Can you get to places out of walking distance without help? (For eg., can you travel alone on buses, taxis or drive your car?): No Can you go shopping for groceries or clothes without someone's help?: No Can you prepare your own meals?: Yes Can you do your housework without help?: No Because of any health problems, do you need the help of another person with your personal care needs such as eating, bathing, dressing or getting around the house?: Yes Can you handle your own money without help?: Yes During the past 4 weeks, how would you rate your health in general?: good During the past 4 weeks how have things been going for you?: pretty bad Are you having difficulties driving your car?: not applicable, I don't use a car Do you always fasten your seat belt when you are in a car?: yes, usually During past 4 weeks, have you been bothered by the following: never: Sexual problems? and Problems using the telephone?, seldom: Teeth or denture problems?, sometimes: Falling or dizzy when standing up and Trouble eating well? and often: Tiredness or fatigue? Have you fallen 2 or more times in the past year?: No Are you afraid of falling?: Yes Are you a smoker?: no During the past 4 weeks, how many drinks of wine, beer, or other alcoholic beverages did you have?: no alcohol at all Do you exercise for about 20 minutes 3 or more times a week?: no, I usually do not exercise this much Have you been given information to help with the following?: yes: Hazards in your house that might hurt you? and yes: Keeping track of your medications? How often do you have trouble taking medicines the way you have been told to take them?: I always take medicine as prescribed How confident are you that you can control & manage most of your health problems?: somewhat confident What is your race?: White Mini Mental State Exam (MMSE) Orientation What is the (year) (season) (date) (day) (month)?: year, season, date, day and month Where are we (state) (county) (town or city) (hospital) (floor)?: state, county, town or city, hospital/clinic and floor Score Score: 10 Activity of Daily Living Bathing - sponge bath, tub bath or shower: receives no assistance (gets in/out by self, if usual bathing means Dressing - getting clothes from closets & drawers, including inner/outer garments & fasteners.: gets clothes & gets completely dressed without help Toileting - going to the 'toilet room' for urine/bowel elimination & cleaning self/arranging clothes: goes to toilet room, cleans self, arranges clothes without help Transfer: moves in & out of bed and chair without help (may use support object) Continence: supervision helps urination/bowel control; catheter use; incontinent Feeding: feeds self without help Total Score: 1 Information obtained from: patient Using telephone: independent Traveling: dependent Shopping: dependent Preparing meals: dependent Housework: dependent Taking medicine: independent Managing money: independent PHQ-9 Over the last 2 weeks, how often have you been bothered by any of the following problems? 1. Little interest or pleasure in doing things: not at all 2. Feeling down, depressed, or hopeless: not at all 3. Trouble falling or staying asleep, or sleeping too much: nearly every day 4. Feeling tired or having little energy: nearly every day 5. Poor appetite or overeating: more than half the days 6. Feeling bad about yourself - or that you are a failure or have let yourself or your family down: not at all 7. Trouble concentrating on things, such as reading the newspaper or watching television: not at all 8. Moving or speaking so slowly that other people could have noticed. Or the opposite - being so fidgety or restless that you have been moving around a lot more than usual: nearly every day 9. Thoughts that you would be better off or of hurting yourself in some way: not at all Total score: 11 Depression Screening Interpretation: Positive Depression Screening Follow-up: Existing condition and Declines treatment Depression Screening Done: Yes 61142 - PHQ-9 Billing: Yes Source: Developed by Drs. Bradford Thakkar, Jen Franz, Jan Miranda and colleagues, with an educational andrez from [employer]. Physical Exam Vital Signs: Last Vital Signs Temp 98.0 F 11/03/24 08:48 Pulse 73 11/03/24 08:48 BP 108/68 11/03/24 08:48 Pulse Ox 97 11/03/24 08:48 BMI result Body Mass Index 27.6 Assessment & Plan Assessment & Plan (1) Hypertension, essential: Code(s): I10 - Essential (primary) hypertension (2) Lipid disorder: Code(s): E78.9 - Disorder of lipoprotein metabolism, unspecified (3) LFT elevation: Code(s): R79.89 - Other specified abnormal findings of blood chemistry (4) Chronic GERD: Code(s): K21.9 - Gastro-esophageal reflux disease without esophagitis (5) Urge incontinence of urine: Code(s): N39.41 - Urge incontinence (6) Anemia: Comment: PATIENT HAD IRON-DEFICIENCY ANEMIA, HAS BEEN ON IRON SUPPLEMENTS . ANEMIA WAS TOTALLY CORRECTED . NOW SHE HAS DEVELOPED ANEMIA AGAIN AND HER CURRENT HEMOGLOBIN IS DOWN TO 9GMs Code(s): D64.9 - Anemia, unspecified Qualifiers: Anemia type: other cause Other causes of anemia: chronic disease, other Qualified Code(s): D63.8 - Anemia in other chronic diseases classified elsewhere (7) COPD, severe: Code(s): J44.9 - Chronic obstructive pulmonary disease, unspecified (8) Uses roller walker: Code(s): Z99.89 - Dependence on other enabling machines and devices Plan History The patient is an 84-year-old female presenting for Medicare wellness visit and regular follow-up visit Memory issue: - Reports occasional forgetfulness, such as not remembering going through a community room. - Experiences moments of not recalling how she got to a certain place or performed an action. - Compares the onset of forgetfulness with her mother's history of similar symptoms. - Prefers to monitor the situation without medication intervention for now. Medical History: - Asthma managed with Breo Ellipta inhaler. - Essential Hypertension managed with Losartan. - Historical low Vitamin B12 level at 179 in July. - Hyperlipidemia managed with Simvastatin. - Gastroesophageal Reflux Disease managed with Omeprazole. - Chronic Iron deficiency anemia noted by improved hemoglobin levels to 11.5 with iron supplementation. Social History: - Resides independently in an apartment. - Previously used alcohol (beer) but ceased consumption years ago. - Quit smoking; reported smoking a joint historically. - Engages in social activities like [employer]ingo and involvement in a tenants? association. - Provides meal assistance to friends with chronic illnesses. - Limited fluid intake and frequent nocturnal urination. - Prefers not to medicate bladder issues due to past unsuccessful procedures. Family History: - Maternal history of forgetfulness. Problem List - Confusion - Dysgeusia related to inhaler use - Asthma - Essential Hypertension - Vitamin B12 deficiency - Hyperlipidemia - Gastroesophageal Reflux Disease - Iron deficiency anemia Diagnostic results - Labs: Hemoglobin improved to 11.5 with iron supplementation. - Labs: Previous low Vitamin B12 level at 179. - Labs: Iron level at 18, kidney functions noted to be stable. - Labs: Elevated liver enzyme necessitating recheck. [place] [facility] - Dr. Hilton (previous recommendations) - Dr. Mccarthy and Dr. Ramírez cardiology Patient Instructions - Continue current medication regimen. - Monitor forgetfulness and report if symptoms worsen. - Follow-up on proposed blood tests to re-evaluate liver enzymes and B12. - Increase fluid intake despite low consumption habits. - Consider more regular social activities to maintain cognitive engagement. Follow-up 4 months Orders: Orders Ferritin Today D64.9 - Anemia, unspecified, E78.9 - Disorder of lipoprotein metabolism, unspecified, I10 - Essential (primary) hypertension, J44.9 - Chronic obstructive pulmonary disease, unspecified, K21.9 - Gastro-esophageal reflux disease without esophagitis, N39.41 - Urge incontinence, R79.89 - Other specified abnormal findings of blood chemistry, Z59.00 - Homelessness u nspecified, Z99.89 - Dependence on other enabling machines and devices Folate Today D64.9 - Anemia, unspecified, E78.9 - Disorder of lipoprotein metabolism, unspecified, I10 - Essential (primary) hypertension, J44.9 - Chronic obstructive pulmonary disease, unspecified, K21.9 - Gastro-esophageal reflux disease without esophagitis, N39.41 - Urge incontinence, R79.89 - Other specified abnormal findings of blood chemistry, Z59.00 - Homelessness unspecified, Z99.89 - Dependence on other enabling machines and devices Comprehensive Met. Panel Today D64.9 - Anemia, unspecified, E78.9 - Disorder of lipoprotein metabolism, unspecified, I10 - Essential (primary) hypertension, J44.9 - Chronic obstructive pulmonary disease, unspecified, K21.9 - Gastro- esophageal reflux disease without esophagitis, N39.41 - Urge incontinence, R79.89 - Other specified abnormal findings of blood chemistry, Z59.00 - Homelessness unspecified, Z99.89 - Dependence on other enabling machines and devices LDL Cholesterol Direct Today D64.9 - Anemia, unspecified, E78.9 - Disorder of lipoprotein metabolism, unspecified, I10 - Essential (primary) hypertension, J44.9 - Chronic obstructive pulmonary disease, unspecified, K21.9 - Gastro- esophageal reflux disease without esophagitis, N39.41 - Urge incontinence, R79.89 - Other specified abnormal findings of blood chemistry, Z59.00 - Homelessness unspecified, Z99.89 - Dependence on other enabling machines and devices Complete Blood Count Auto Diff Today D64.9 - Anemia, unspecified, E78.9 - Disorder of lipoprotein metabolism, unspecified, I10 - Essential (primary) hypertension, J44.9 - Chronic obstructive pulmonary disease, unspecified, K21.9 - Gastro-esophageal reflux disease without esophagitis, N39.41 - Urge incontinence, R79.89 - Other specified abnormal findings of blood chemistry, Z59.00 - Homelessness unspecified, Z99.89 - Dependence on other enabling machines and devices TSH reflex Free T4 Today D64.9 - Anemia, unspecified, E78.9 - Disorder of lipoprotein metabolism, unspecified, I10 - Essential (primary) hypertension, J 44.9 - Chronic obstructive pulmonary disease, unspecified, K21.9 - Gastro- esophageal reflux disease without esophagitis, N39.41 - Urge incontinence, R79.89 - Other specified abnormal findings of blood chemistry, Z59.00 - Homelessness unspecified, Z99.89 - Dependence on other enabling machines and devices Vitamin D 25-OH (D2 and D3) Today D64.9 - Anemia, unspecified, E78.9 - Disorder of lipoprotein metabolism, unspecified, I10 - Essential (primary) hypertension, J44.9 - Chronic obstructive pulmonary disease, unspecified, K21.9 - Gastro- esophageal reflux disease without esophagitis, N39.41 - Urge incontinence, R79.89 - Other specified abnormal findings of blood chemistry, Z59.00 - Homelessness unspecified, Z99.89 - Dependence on other enabling machines and devices Vitamin B12 Today D64.9 - Anemia, unspecified, E78.9 - Disorder of lipoprotein metabolism, unspecified, I10 - Essential (primary) hypertension, J44.9 - Chronic obstructive pulmonary disease, unspecified, K21.9 - Gastro-esophageal reflux disease without esophagitis, N39.41 - Urge incontinence, R79.89 - Other specified abnormal findings of blood chemistry, Z59.00 - Homelessness unspecified, Z99.89 - Dependence on other enabling machines and devices Quality Reporting (2019) Depression/Bipolar (159/160/161/177) PHQ-9: Total score: 11 Coding Level of Care Code Medicare Subsequent (G0439) Est Pt Level 4 (87309) Diagnoses Hypertension, essential I10 Lipid disorder E78.9 LFT elevation R79.89 Chronic GERD K21.9 Urge incontinence of urine N39.41 Anemia in other chronic diseases classified elsewhere D63.8 Anemia type: other cause Other causes of anemia: chronic disease, other COPD, severe J44.9 Uses roller walker Z99.89 CPT Codes Advance Care Planning - Advance Care Planning discussion: On file, no changes ([id number]) Advance Care Planning - Time spent: 1-15 minutes, on File ([id number]) Additional Codes PHQ-9 - 57937 - PHQ-9 Billing: Yes ([id number]) Advance Care Planning Advance Care Planning discussion: On file, no changes Forms completed: Health Care Proxy and MOLST Time spent: 1-15 minutes, on File
== END 2024-11-03 09:17 | disposition home or self-care (01) ==
LOC: HO.HMCC 08:41
PROVIDERS: PCP Internal Medicine; Visit Provider Internal Medicine
DX: Z00.00 Encounter for general adult medical examination without abnormal findings (principal); I10 Essential (primary) hypertension; E78.9 Disorder of lipoprotein metabolism, unspecified; J44.9 Chronic obstructive pulmonary disease, unspecified; R79.89 Other specified abnormal findings of blood chemistry; K21.9 Gastro-esophageal reflux disease without esophagitis; N39.41 Urge incontinence; D63.8 Anemia in other chronic diseases classified elsewhere; Z99.89 Dependence on other enabling machines and devices

== ENCOUNTER 2024-11-09 08:56 | Outpatient (AMB) | payer MEDICARE, MEDICAID, SELFPAY ==
[2024-11-09 09:13] VITALS: BP 110/66; PULSE 81; BMI 27.3
--- NOTE | 2024-11-09 09:13 | A.OFFVIS_ITS ---
Vital Signs 11/09/24 09:13 Height 5 ft 4 in Weight 159 lb 2.78 oz BMI 27.3 BP 110/66 Blood Pressure Location Rt radial Position Sitting Pulse 81 Pulse Source Monitor Intake Visit Reasons: 1 yr f/up [employer] Required: No Accompanied by: Self / Same As Patient Allergies No Known Allergies Allergy (Verified 11/03/24 08:51) Medication List - Last Reconciled 11/09/24 by Carlos Ramírez MD Breo Ellipta 200-25 mcg/dose (fluticasone furoate-vilanterol) 1 inh inhalation DAILY 30 days NS cyanocobalamin (vitamin B-12) (Vitamin B-12) 1,000 mcg PO DAILY ferrous sulfate 324 mg PO BID 90 days losartan 50 mg PO DAILY omeprazole 40 mg PO DAILY simvastatin 40 mg PO DAILY 90 days HPI Comments Details: Pebbles returns for follow-up. In the past, she was seen regarding shortness of breath and tachycardia. She has a history of severe COPD. She does get short of breath with activity but she states that she is actually feeling better these days. No clear exertional angina. [facility] Medical History Dyspnea on exertion Influenza vaccination declined COVID-19 vaccination declined Frequency of micturition Tachycardia Ex-smoker Polyuria Chronic GERD Lipid disorder COPD, severe Hypertension Surgical History Hx of cataract extraction Family History Father HTN (hypertension) Enlarged heart Mother No problems noted. Brother No problems noted. Son No problems noted. Son No problems noted. Daughter No problems noted. Daughter No problems noted. Maternal Grandmother Cancer Father Diabetes Social History Household Members: None Housing: House Alcohol intake: current Alcohol intake frequency: a few times a week Patient Tobacco Use Status: Former Tobacco user Tobacco use type: Cigarette Years Smoked: 60 years e-Cigarette/Vaping Use: Never Used Second Hand Smoke Exposure: No service: No Current occupational status: retired Cognitive needs: No Hearing needs: No Vision needs: Yes Review of Systems Const Denies chills, Denies fatigue, Denies fever(s), Denies frequent falls, Denies weakness, Denies weight gain and Denies weight loss ENT Denies dizziness Card Denies chest pain, Denies leg edema, Denies lightheadedness, Denies palpitations, Denies dyspnea and Denies dyspnea on exertion Resp Denies cough, Denies dyspnea and Denies dyspnea on exertion GI Denies hematochezia Musc Denies abnormal gait, Denies muscle weakness, Denies numbness, Denies radiating pain into limb and Denies tingling Neuro Denies abnormal gait, Denies dizziness, Denies frequent falls, Denies numbness, Denies tingling and Denies weakness Endo Denies fatigue and Denies palpitations Physical Exam Vital Signs: Last Vital Signs Pulse 81 11/09/24 09:13 BP 110/66 11/09/24 09:13 BMI result Body Mass Index 27.3 Const General: comfortable and no acute distress Orientation/consciousness: patient oriented x3 HEENT Other: Unremarkable Head: Yes normal to inspection Neck Neck: Yes normal visual inspection Chest Chest palpation & inspection: normal inspection of the chest Resp Auscultation: clear to auscultation bilaterally Cardio Palpation: normal PMI Heart sounds: S1 normal heart sound present, S2 normal heart sound present, no gallops, no murmurs and no rubs GI Palpation (GI): Soft to palpation Back/Spine/Pelvis Other: unremarkable Skin General skin exam: no rashes or lesions noted Neuro General: patient oriented x3 Extrem General: Yes normal to inspection Psych Mental Status: mental status grossly normal Office Procedures EKG Details: EKG with sinus rhythm at 81/Min; right bundle-branch block pattern cannot exclude old inferior infarct; [place] [id number], Complete Assessment & Plan Assessment & Plan (1) Breathlessness on exertion: Code(s): R06.81 - Apnea, not elsewhere classified Category: Medical (2) COPD, severe: Code(s): J44.9 - Chronic obstructive pulmonary disease, unspecified Category: Medical Plan Cardiac studies reviewed. Echocardiogram with LVEF of 60-65%; basal inferior/inferolateral hypokinesis. Otherwise unremarkable. Overall, suspect shortness of breath is primarily related to COPD. Underlying coronary disease is possible. We had discussed about stress testing in the past and she felt she would rather leave it alone and did not want anything done further. Again discussed today and she states the same. Hence no specific recommendations from cardiac. She is on statins and that may be continued. For future, she will call us with concerns. Coding Level of Care Code Est Pt Level 3 (66425) Diagnoses Breathlessness on exertion R06.81 COPD, severe J44.9 CPT Codes EKG - CPT: 04273-[id number], Complete ([id number])
== END 2024-11-09 09:27 | disposition home or self-care (01) ==
LOC: HO.HCS 08:57
PROVIDERS: PCP Internal Medicine; Visit Provider Internal Medicine
DX: R06.81 Apnea, not elsewhere classified (principal); J44.9 Chronic obstructive pulmonary disease, unspecified
CPT/HCPCS: 93010; 99213

== ENCOUNTER → 2024-11-09 08:56 | Outpatient (BNVA) | payer MEDICARE, MEDICAID, SELFPAY | PROVIDERS: PCP Internal Medicine; Visit Provider Internal Medicine | DX: R06.81 Apnea, not elsewhere classified (principal); J44.9 Chronic obstructive pulmonary disease, unspecified; I45.10 Unspecified right bundle-branch block; R94.31 Abnormal electrocardiogram [ECG] [EKG] | CPT/HCPCS: 93005; 99212 ==

== ENCOUNTER 2025-01-19 09:33 | Outpatient (AMB) | payer MEDICARE, MEDICAID, SELFPAY ==
[2025-01-19 09:39] VITALS: BP 132/80; PULSE 90; O2SAT 95; BMI 28.6
--- NOTE | 2025-01-19 09:39 | MHC.OFFVIS ---
Vital Signs 01/19/25 09:39 Height 5 ft 4 in Weight 166 lb 7.184 oz BMI 28.6 BP 132/80 Blood Pressure Location Lt brachial Position Sitting Pulse 90 Pulse Source Pulse Oximeter Pulse Oximetry (%) 95 Oxygen Delivery Method Room Air Intake Visit Reasons: copd Intake Note: pt is here for follow up and states she is doing not bad. nebulizer prn, still having some mouth issue no taste or buring, she tried stopping Breo to see if it was related. 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: Grease Refining Supervisor offered & declined Allergies No Known Allergies Allergy (Verified 01/19/25 09:52) Medication List - Last Reconciled 01/19/25 by Demarco Hilton MD Breo Ellipta 200-25 mcg/dose (fluticasone furoate-vilanterol) 1 inh inhalation DAILY 30 days NS cyanocobalamin (vitamin B-12) (Vitamin B-12) 1,000 mcg PO .weekly ferrous sulfate 324 mg PO DAILY losartan 50 mg PO DAILY omeprazole 40 mg PO DAILY simvastatin 40 mg PO DAILY 90 days Do you need a note to return to daycare/school/sports/work: No HPI HPI copd: Details: LOLI IS 84 YEARS OLD HAPPY GOING FEMALE, COMES FOR FOLLOW-UP FOR HER COPD, WHICH IS VERY STABLE AND SHE HAS HAD NO ACUTE SYMPTOMS. SHE WALKS WITH THE WALKER AND DOES NOT GET TOO MUCH SHORTNESS OF BREATH. SHE USES BREO 1 INHALATION ONCE A DAY AND HARDLY NEEDS TO USE THE NEBULIZER. HAS HAD NO ACUTE EXACERBATION IN THE LAST 6 MONTHS. HER ANEMIA IS ALSO UNDER CONTROL . [facility] Medical History Dyspnea on exertion Influenza vaccination declined COVID-19 vaccination declined Frequency of micturition Tachycardia Ex-smoker Polyuria Chronic GERD Lipid disorder COPD, severe Hypertension Surgical History Hx of cataract extraction Family History Father HTN (hypertension) Enlarged heart Mother No problems noted. Brother No problems noted. Son No problems noted. Son No problems noted. Daughter No problems noted. Daughter No problems noted. Maternal Grandmother Cancer Father Diabetes Social History Household Members: None Housing: House Alcohol intake: current Alcohol intake frequency: a few times a week Patient Tobacco Use Status: Former Tobacco user Tobacco use type: Cigarette Years Smoked: 60 years e-Cigarette/Vaping Use: Never Used Second Hand Smoke Exposure: No service: No Current occupational status: retired Cognitive needs: No Hearing needs: No Vision needs: Yes Review of Systems Const All systems reviewed & are unremarkable except as noted in HPI and below Eyes Reports no additional complaints ENT Reports no additional complaints Card Denies chest pain, Denies irregular heart rhythm, Denies leg edema and Reports dyspnea on exertion Resp Reports as per HPI and Reports dyspnea on exertion GI Reports heartburn (Being treated with omeprazole) Reports no additional complaints Musc Reports back pain (Mild) Skin/Breast Reports system reviewed and no additional complaints, except as documented Neuro Reports no additional complaints Psych Reports no additional complaints Physical Exam Vital Signs: Last Vital Signs Pulse 90 01/19/25 09:39 BP 132/80 01/19/25 09:39 Pulse Ox 95 01/19/25 09:39 Oxygen Delivery Method Room Air 01/19/25 09:39 BMI result Body Mass Index 28.6 Const Other: Complexion is somewhat pale. General: comfortable, no acute distress, alert and awake Orientation/consciousness: patient oriented x3 HEENT Head: Yes normal to inspection General nose exam: No nasal polyps present and No nasal discharge present Face and sinus: Yes sinuses nontender Mouth: oropharynx normal and other (There is a small ulcer on the right lateral border of the tongue) Throat: Yes posterior oropharynx normal Eyes General: appearance normal, both eyes and all related structures Neck Neck: Yes normal visual inspection, Yes no lymphadenopathy, Yes trachea midline and Yes no JVD Thyroid: Thyroid normal Chest Chest palpation & inspection: normal inspection of the chest, normal palpation of entire chest wall and no tenderness Resp Other: Percussion note hyper resonant, breath sounds are distant with prolonged expiratory phase. No wheezes rhonchi or Creps are heard today . Cardio Palpation: normal PMI Rate: regular rate Rhythm: regular rhythm Heart sounds: no gallops and no murmurs GI Palpation (GI): Soft to palpation, nontender, No hepatosplenomegaly present and no masses Auscultation: normal bowel sounds Back/Spine/Pelvis Thoracic/Lumbar Spine: thoracic and lumbar spine normal to inspection and thoraco-lumbar ROM limited Skin General skin exam: no rashes or lesions noted Neuro General: patient oriented x3 and no focal motor deficits Cranial nerves: Yes CN's II-XII intact bilaterally Extrem General: Yes normal to inspection, Yes no clubbing, cyanosis or edema and Yes no calf tenderness Psych Appearance: grossly normal and well kempt Speech and movement: Normal speech and movement present Assessment & Plan Assessment & Plan (1) COPD, severe: Comment: SHE HAS RATHER SEVERE CHRONIC OBSTRUCTIVE PULMONARY DISEASE, WITH PARTIAL REVERSIBILITY INDICATING MORE LIKE ASTHMA/COPD OVERLAP SYNDROME. She is doing fairly well on her current regimen. WITH THE ONGOING USE OF BREO ELLIPTA 1 INHALATION DAILY SHE HAS NOT NEEDED TO USE PREDNISONE. Code(s): J44.9 - Chronic obstructive pulmonary disease, unspecified Category: Medical Plan: ADVISED TO CONTINUE BREO ELLIPTA 200-251 INHALATION DAILY. ALBUTEROL HFA 2 PUFFS Q 6 HOURS ONLY P.R.N. (2) Ex-smoker: Comment: SHE QUIT 6 YEARS AGO AFTER SMOKING 1 PACK A DAY FOR 60 YEARS. HAS FELT MUCH BETTER SINCE SHE QUIT Code(s): Z87.891 - Personal history of nicotine dependence Category: Social Hx Plan: COMMENDED FOR HAVING QUIT SMOKING . (3) Dyspnea on exertion: Comment: EXPLAINED TO HER THAT SHE HAS VERY SEVERE CHRONIC OBSTRUCTIVE PULMONARY DISEASE. AND POSSIBLE HEART DISEASE. HER PREVIOUSLY NOTED ANEMIA HAS BEEN TREATED AND SHE DEFINITELY FEELS BETTER . Code(s): R06.09 - Other forms of dyspnea Category: Medical Plan: CONTINUE THE CURRENT TREATMENT REGIMEN. TRY TO DO DEEP BREATHING EXERCISES 3 TO 4 TIMES A DAY. Medications: Changed From cyanocobalamin (vitamin B-12) (Vitamin B-12) 1,000 mcg PO DAILY 90 tabs 3RF To cyanocobalamin (vitamin B-12) (Vitamin B-12) 1,000 mcg PO .weekly Mercedez Miller MD From ferrous sulfate 324 mg PO BID 180 tabs 0RF 90 days To ferrous sulfate 324 mg PO DAILY Flavio Bundy MD Coding Level of Care Code Est Pt Level 3 (10602) Diagnoses COPD, severe J44.9 Ex-smoker Z87.891 Dyspnea on exertion R06.09
== END 2025-01-19 09:58 | disposition home or self-care (01) ==
LOC: HO.HPS 09:34
PROVIDERS: PCP Internal Medicine; Visit Provider Internal Medicine
DX: J44.9 Chronic obstructive pulmonary disease, unspecified (principal); Z87.891 Personal history of nicotine dependence; R06.09 Other forms of dyspnea
CPT/HCPCS: 99213

== ENCOUNTER → 2025-01-19 09:33 | Outpatient (BNVA) | payer MEDICARE, MEDICAID, SELFPAY | PROVIDERS: PCP Internal Medicine; Visit Provider Internal Medicine | DX: J44.9 Chronic obstructive pulmonary disease, unspecified (principal); R06.09 Other forms of dyspnea; Z87.891 Personal history of nicotine dependence | CPT/HCPCS: 99212 ==